=== PATIENT | female | born 1935 | race Caucasian/White ===

== ENCOUNTER 2017-07-19 07:29 | Inpatient (IN) | payer OTHER ==
[2017-06-29 14:22] VITALS: BMI 33.0
--- NOTE | 2017-06-29 15:01 | PAT Medication Instructions ---
Service Date Jun 29, 2017. Current Home Medication List Amlodipine (Norvasc), 5 MG PO QAM Ascorbic Acid (Vitamin C), 500 MG PO QAM Aspirin (Aspirin Ec), 81 MG PO QAM Clopidogrel (Plavix), 75 MG PO QAM Cyanocobalamin (Vitamin B12 500MCG), 500 MCG PO QAM Ergocalciferol (Vitamin D 44954 Unit), 50,000 UNIT PO WK Furosemide (Lasix), 40 MG PO QAM Levothyroxine Sodium (Synthroid), 75 MCG PO QAM Multivitamin (Multivitamin), 1 TAB PO QAM Oxycodone/Acetaminophen 5MG/325MG (Percocet 5MG/325MG), 1 TABLET PO Q6H PRN for Pain Potassium Chloride (Micro-K Ext Rel), 10 MEQ PO QAM Pravastatin (Pravachol ), 40 MG PO QPM [Hydrocortisone], 15 MG PO QPM [Hydrocortisone], 20 MG PO QAM Medication Instructions For Your Scheduled Surgery -Contact your prescriber for instructions for: Clopidogrel (Plavix), 75 MG PO QAM --MUST BE OFF PLAVIX FOR 7 DAYS FOR SPINAL ANESTHESIA [Hydrocortisone], 15 MG PO QPM [Hydrocortisone], 20 MG PO QAM -Continue as directed: Ergocalciferol (Vitamin D 87197 Unit), 50,000 UNIT PO WK - Hold the following medications the morning of surgery: Ascorbic Acid (Vitamin C), 500 MG PO QAM Cyanocobalamin (Vitamin B12 500MCG), 500 MCG PO QAM Multivitamin (Multivitamin), 1 TAB PO QAM Potassium Chloride (Micro-K Ext Rel), 10 MEQ PO QAM Furosemide (Lasix), 40 MG PO QAM - Take the following medications the morning of surgery with a sip of water: Amlodipine (Norvasc), 5 MG PO QAM Aspirin (Aspirin Ec), 81 MG PO QAM Levothyroxine Sodium (Synthroid), 75 MCG PO QAM Oxycodone/Acetaminophen 5MG/325MG (Percocet 5MG/325MG), 1 TABLET PO Q6H PRN for Pain (if needed, can be taken up to four hours before surgery) - Take the following medications as scheduled the night before surgery: Oxycodone/Acetaminophen 5MG/325MG (Percocet 5MG/325MG), 1 TABLET PO Q6H PRN for Pain (if needed) Pravastatin (Pravachol ), 40 MG PO QPM If you have any questions please call us at [phone] or [phone] or [phone]
--- NOTE | 2017-06-29 16:15 | DIAGNOSTIC IMAGING REPORT ---
TWO VIEW CHEST CLINICAL HISTORY: Preoperative examination. FINDINGS: PA and lateral chest radiographs are obtained. No prior studies are available for comparison at the time of dictation. The PA view is degraded by patient rotation. The heart is top normal for projection and there is atherosclerotic calcification of the thoracic aorta. Nonspecific interstitial thickening is likely chronic. Bibasilar atelectasis is observed. No airspace consolidation or pleural effusion is identified. There is no pneumothorax. The skeletal structures are osteopenic. Degenerative change and hyperkyphosis are noted in the thoracic spine. There are healed left-sided rib fractures. Advanced arthritic change is seen in the shoulders. IMPRESSION: No active disease in the chest. Electronically signed by: Adam Diaz M.D. 06/29/2017 4:14 PM Dictated Date/Time: 06/29/2017 4:13 PM
[2017-06-29 16:19] LABS: HEMATOCRIT 37.5 % (37-47); HEMOGLOBIN 12.2 g/dL (12.0-16.0); MEAN CELL VOLUME 103.6 fL (80-100); MEAN CORPUSCULAR HEMOGLOBIN 33.7 pg (25-34); MEAN CORPUSCULAR HGB CONC 32.5 g/dl (32-36); MEAN PLATELET VOLUME 10.5 fL (7.4-10.4); NUCLEATED RED BLOOD CELL ABS 0.07 K/uL (0-0); PLATELET COUNT 268 K/uL (130-400); RED CELL DISTRIBUTION WIDTH CV 17.1 % (11.5-14.5); RED CELL DISTRIBUTION WIDTH SD 65.1 fL (36.4-46.3); WHITE BLOOD COUNT 10.86 K/uL (4.8-10.8)
[2017-06-29 16:27] LABS: PTT PATIENT 23.6 SECONDS (21.0-31.0)
[2017-06-29 16:44] LABS: ALBUMIN 3.6 gm/dl (3.4-5.0); CALCIUM 9.4 mg/dl (8.5-10.1); CREATININE 1.33 mg/dl (0.60-1.20)
[2017-06-29 16:46] LABS: TOTAL PROTEIN 7.3 gm/dl (6.4-8.2)
[2017-06-30 07:33] LABS: HEMOGLOBIN A1C 5.2 % (4.5-5.6)
--- NOTE | 2017-07-11 22:21 | History and Physical ---
History & Physical Date Jul 11, 2017. Chief Complaint Right hip DJD History of Present Illness The patient is a 82 year old female with complaints of long standing history of right hip pain, djd and osteonecrosis. The patient rates her pain a 10/10. She has pain with her daily activities. She has limited standing and walking tolerance. Pain is worse with weightbearing. She has failed conservative treatments including physical therapy and anti-inflammatories and is scheduled for right total hip arthroplasty. Past Medical/Surgical History Hypertension Hyperlipidemia Hypothyroidism Hysterectomy Pituitectomy Additional History Hepatic Disease: No Endocrine Disorder: Yes Kidney Disease: No Hypertension: Yes Heart Disease: No Bleeding Tendencies: No Infectious Diseases: No Allergies Coded Allergies: Penicillins (Verified Allergy, Unknown, RASH, 06/29/17) Home Medications Scheduled Amlodipine (Norvasc), 5 MG PO QAM Ascorbic Acid (Vitamin C), 500 MG PO QAM Aspirin (Aspirin Ec), 81 MG PO QAM Clopidogrel (Plavix), 75 MG PO QAM Cyanocobalamin (Vitamin B12 500MCG), 500 MCG PO QAM Ergocalciferol (Vitamin D 33006 Unit), 50,000 UNIT PO WK Furosemide (Lasix), 40 MG PO QAM Levothyroxine Sodium (Synthroid), 75 MCG PO QAM Multivitamin (Multivitamin), 1 TAB PO QAM Potassium Chloride (Micro-K Ext Rel), 10 MEQ PO QAM Pravastatin (Pravachol ), 40 MG PO QPM [Hydrocortisone], 15 MG PO QPM [Hydrocortisone], 20 MG PO QAM Scheduled PRN Oxycodone/Acetaminophen 5MG/325MG (Percocet 5MG/325MG), 1 TABLET PO Q6H PRN for Pain Physical Examination Skin: warm/dry, no rash Eyes: normal inspection, EOMI, sclerae normal ENT: normal ENT inspection, pharynx normal Head: normocephalic, atraumatic Neck: supple, no adenopathy, trachea midline Respiratory/Chest: lungs clear, normal breath sounds, no respiratory distress Cardiovascular: regular rate, rhythm, no edema, no murmur Abdomen / GI: normal bowel sounds, non tender Back: normal inspection Extremities: + pertinent finding (RLE: NVSI, +painful ROM hip and log roll, + EHL/FHL/TA/GS SILT grossly) Diagnosis Right Hip DJD Plan of Treatment The patient will be admitted for a right total hip arthroplasty, posterior approach. We will plan on restarting her plavix as well as aspirin post- operatively for DVT prophylaxis. She is going to be home health versus inpatient rehab upon discharge. Her PCP is DR. Estrada in [place]. XR: AP and lateral Right hip demonstrates severe DJD, loss of the joint space, + cysts, +sclerosis, +osteophytes
[2017-07-19] VITALS (8 sets, daily range): BP systolic 96–156; BP diastolic 52–77; PULSE 60–74; TEMP 35.6–36.7; O2SAT 95–100; Ht 165.1 cm; Wt 91.4 kg
[~2017-07-19] VITALS: Ht 165.1 cm; Wt 91.4 kg
[~2017-07-19 07:29] MED LIST: ACETAMINOPHEN 500 MG TAB PO SCH; AMLO-110 PO; ASCO1CAP3 PO; ASPI81TA28 PO; ATROPINE SULFATE 0.1 MG/ML 5ML SYR IV PRN; BUPIVACAINE 0.5 % 5 MG/1 ML PF 10ML VIAL ONE; CLOP1TAB15 PO; CYAN500T13 PO; CeleBREX 200 MG CAP PO SCH; DEXAMETHASONE 4 MG TAB PO SCH; ERGO500037 PO; EpHEDrine SULFATE INJ 50 MG/ML AMP IV PRN; FAMOTIDINE 20 MG TAB PO SCH; FENTANYL CITRATE INJ 50 MCG/1 ML 2 ML VIAL ONE; FRS/40 PO; GABAPENTIN 300 MG CAP PO SCH; HYDROCORTISONE PO; HYDROmorphone INJ 2 MG/ML SYR/VIAL IV PRN; LACTATED RINGER'S 1000ML 1,000 ML IV SCH; LACTATED RINGER'S 1000ML 500 ML IV SCH; LEVO75TA PO; METOCLOPRAMIDE HCL 10 MG TAB PO SCH; MIDAZOLAM HCL 1 MG/ML 2ML VIAL ONE; MULT-506 PO; ONDANSETRON INJ 2 MG/ML 2 ML VIAL IV PRN; OXYC-57 PO; PHENYLEPHRINE 100MCG/ML 5ML SYR IV PRN; POTA10CA28 PO; PRAV20TA PO; ROPIVACAINE 5MG/ML 30 ML 150 MG, BUPIVACAINE 0.5% MPF INJ 30 ML, EpINEphrine HCL INJ 0.... INFIL SCH; VANCOMYCIN IV 1,250 MG in SODIUM CHLORIDE 0.9% 250ML 250 ML IV SCH
[2017-07-19] MEDS ORDERED: PROPOFOL IV EMULSION 10 MG/ML 20 ML VIAL IV ONE (07:45)
--- NOTE | 2017-07-19 08:17 | History & Physical Bridge Note ---
H&P Re-Evaluation Bridge Note: I have examined the patient, reviewed the History & Physical and in the interval since the performance of the History & Physical I have noted the following changes of clinical significance: No changes noted
[2017-07-19] MEDS ORDERED: POVIDONE-IODINE OP SOLN 30 ML BTL ONE (08:26)
[2017-07-19] MEDS ORDERED: ORTHO JOINT ANESTHETIC ONE (08:26)
[2017-07-19] MEDS ORDERED: BACITRACIN 50000 UNIT VIAL ONE (08:26)
[2017-07-19] MEDS: TRANEXAMIC ACID INJ 1,000 MG x 2 Bags IV SCH ×4 (10:22→13:59)
[2017-07-19] MEDS ORDERED: GLYCOPYRROLATE INJ 0.2 MG/ML VIAL ONE (11:04)
[2017-07-19] MEDS ORDERED: CLINDAMYCIN PHOS 150 MG/ML 2 ML VIAL ONE (11:19)
[2017-07-19] MEDS ORDERED: HYDROCORTISONE SOD SUCCINATE 100 MG/2 ML VIAL ONE (12:27)
--- NOTE | 2017-07-19 12:45 | [facility] Post Operative Brief Note ---
Immediate Operative Summary Operative Date Jul 19, 2017. Pre-Operative Diagnosis Right Hip Degenerative Joint Disease Post-Operative Diagnosis Right Hip Degenerative Joint Disease Procedure(s) Performed Right total hip arthroplasty-posterior Surgeon Dr. Marcus Rhoades Picu Nurse Surgeon(s) Adolfo Rhodes PA-C Estimated Blood Loss 225mL Findings Consistent with Post-Op Diagnosis Fluids (cc crystalloids) 1400 Specimens Permanent: A. Right femoral head Drains None Anesthesia Type MAC Spinal Regional Complication(s) none Disposition Disposition: Recovery Room / PACU
[2017-07-19] MEDS ORDERED: FENTANYL CITRATE INJ 50 MCG/1 ML 2 ML VIAL ONE (12:49)
[2017-07-19] MEDS ORDERED: MoRPHine SULFATE 4 MG/ML 1 ML CARP\\VIAL IV PRN (13:00)
[2017-07-19] MEDS ORDERED: ONDANSETRON INJ 2 MG/ML 2 ML VIAL IV PRN (13:00)
--- NOTE | 2017-07-19 13:09 | [facility] Operative Report ---
Operative Report Operative Date Jul 19, 2017. Pre-Operative Diagnosis Right Hip Degenerative Joint Disease Post-Operative Diagnosis Right Hip Degenerative Joint Disease Procedure(s) Performed Right total hip arthroplasty-posterior Surgeon Dr. Marcus Rhoades Zookeeper Surgeon(s) Adolfo Rhodes PA-C Estimated Blood Loss 225mL Findings See dictated op note Fluids 1400 Specimens Permanent: A. Right femoral head Drains None Anesthesia Type MAC Spinal Regional Complication(s) none Disposition Recovery Room / PACU Indications The patient is a 82-year-old female who presents with severe progressive right hip DJD, with femoral head collapse who has failed outpatient conservative treatments. I indicated the patient for a total hip replacement and the risks and benefits were explained in detail which included but not limited to infection, bleeding, blood clot, damage to surrounding bone, nerves, vessels, soft tissue, hip dislocation, failure of the prosthesis, leg length discrepancy , need for additional surgery and . The patient agreed to proceed with replacement of the hip and informed consent was obtained. Description of Procedure Following induction of adequate spinal anesthesia, the patient was transferred to the OR table and placed in lateral decubitus position with left hip down. The right hip was prepped and draped in the typical sterile fashion and a posterolateral/Wendy-Langenbeck incision was made. Subcutaneous tissue was sharply dissected. Electrocautery was utilized for hemostasis. The fascia was incised throughout the length of the wound and retracted with the Charnley retractor. The bursa was taken down and the short external rotators were identified. The piriformis was tagged with #1 Vicryl. The short external rotators and capsule were divided from the posterior aspect of the femur using electrocautery. The posterior capsule was tagged with #1 Vicryl. Both external rotators and posterior capsule were swept posterior and protected, along with protecting the sciatic nerve. The hip was dislocated by flexion and internally rotation in a controlled manner and exposure of the femoral neck was gained with an old-style Hohmann and a blunt cobra retractor. A femoral cutting guide was utilized for making the appropriate level femoral neck cut with reciprocating saw. The femoral head was removed, measured and reserved on the back table. Next, attention was turned to the acetabulum. A posterior and anterior offset retractor was placed to gain adequate exposure. Acetabular labrum as well as posterior capsule elements were removed using electrocautery and forceps. Fovea centralis was cleared of all soft tissue. Sequential reaming was performed starting at 44 mm and carried up to a 49 mm and decision was made to proceed with impaction of a 50 mm trabecular metal cup. This was impacted and held using a single 30 mm bone screw. The trial acetabular liner was placed at this time. Next, attention was turned to the proximal femur where a Bovie and pickup was used to further clear short external rotators from their insertion on the femur. Box osteotome and canal finder was used to gain access to the femoral canal and the lateral reamer on power was used to further open the proximal lateral canal. Sequentially rasping was carried up to a 13.5 which gave good fit and fill of the proximal femur. A trial reduction was carried out with a extended offset femoral neck component a 36/+0 mm femoral head. A trial reduction was performed and sequential head neck lengths were increased with trialing up to a +7. The trial reduction was stable in all degrees of rotation with no [id number] impingement. The hip was dislocated, trial components were removed and access to the acetabulum was re-established. The trial liner was removed and the cup was irrigated to ensure all debris was removed. The final acetabular liner was inserted and properly seated in the cup. Access to the femur was once more gained and the size 13.5 femoral stem with extended offset was impacted into position. The hip was once more assessed with the 36/+7 mm femoral head. Stability was accessed and found to be excellent with equal leg lengths. The hip was dislocated for the last time and the final 36/+7 ceramic femoral head was impacted in place and the hip was reduced. Range of motion was checked once again and found to be stable. The wound was copiously irrigated with sterile saline solution. The tiffany-incisional soft tissue was injected utilizing [facility] ortho mix which includes a combination of Ropivicaine 0.5% 150mg, Bupivicaine 0.5%/Epinephrine 1:200,000 30ml, Toradol 30mg, Dexamethasone 4mg, Ketamine 10mg, Clonidine 100mcg and NSS 30ml Orthomix solution. The piriformis, external rotators and capsule were repaired to the greater trochanter through bone tunnels using #5 FiberWire. The fascia was closed using #1 Vicryl, subcutaneous tissue was closed using 2-0 Vicryl, and skin was closed with 3-0 V-lock suture and Dermabond Prineo. Sterile dressings were applied which included ita, 4x4s and tegaderm adhesive dressing. The patient tolerated the procedure well and was transported to PACU in stable condition. Due to the complex nature of the procedure, the entire surgery was performed with the operational assistance of Adolfo Rhodes PA-C. The data assistant, under direct supervision, was involved in the actual performance of all aspects of the surgical procedure including hemostasis, tissue retraction and incision, instrument management, patient positioning, and wound closure. I attest to the content of the Intraoperative Record and any orders documented therein. Any exceptions are noted below. I attest to the content of the Intraoperative Record and any orders documented therein. Any exceptions are noted below.
[2017-07-19] MEDS ORDERED: HYDROmorphone INJ 0.5 MG/0.5 ML SYR ONE (13:26)
--- NOTE | 2017-07-19 13:33 | DIAGNOSTIC IMAGING REPORT ---
R PELVIS/UNILATERAL HIP 1 VIEW CLINICAL HISTORY: 82 years-old Female presenting with IN PACU - A/P PELVIS and LATERAL HIP INCLUDING ALL OF IMPLANT. TECHNIQUE: Single frontal view the pelvis and crosstable lateral view of the right hip were obtained. COMPARISON: None. FINDINGS: Postsurgical changes of total right hip arthroplasty. No malalignment. No periprosthetic fracture allowing for osteopenia. The bony pelvis is intact. Left hip joint intact. No advanced degenerative changes of the left hip. IMPRESSION: Expected postsurgical changes of total right hip arthroplasty allowing for osteopenia. Electronically signed by: Robert Peres M.D. 07/19/2017 1:31 PM Dictated Date/Time: 07/19/2017 1:30 PM
--- NOTE | 2017-07-19 13:50 | Anesthesiology Progress Note ---
Anesthesia Post Op Note Date & Time Jul 19, 2017 at 13:50 Vital Signs Pain Intensity: 6 Vital Signs Past 12 Hours Date Time Temp Pulse Resp B/P (MAP) Pulse Ox O2 Delivery O2 Flow Rate FiO2 07/19/17 13:38 70 14 07/19/17 13:38 82 14 97 07/19/17 13:36 117/60 07/19/17 13:33 68 15 07/19/17 13:33 68 15 97 07/19/17 13:32 71 13 07/19/17 13:32 71 13 97 07/19/17 13:31 129/64 07/19/17 13:27 72 16 97 07/19/17 13:27 72 16 07/19/17 13:26 131/69 07/19/17 13:22 91 16 98 07/19/17 13:22 77 16 07/19/17 13:21 132/70 07/19/17 13:17 80 14 07/19/17 13:17 80 14 94 07/19/17 13:16 120/67 07/19/17 13:13 110/61 07/19/17 13:12 36.2 77 11 110/61 95 Nasal Cannula 2 07/19/17 13:12 78 12 95 07/19/17 13:12 79 12 07/19/17 08:24 36.4 67 22 156/77 96 Room Air Notes Mental Status: alert / awake / arousable, participated in evaluation Pt Amnestic to Procedure: Yes Nausea / Vomiting: adequately controlled Pain: adequately controlled Airway Patency, RR, SpO2: stable & adequate BP & HR: stable & adequate Hydration State: stable & adequate Anesthetic Complications: no major complications apparent
[2017-07-19] MEDS: SODIUM CHLORIDE 0.9% 1000ML 1,000 ML IV SCH ×2 (15:39→22:18)
[2017-07-19] MEDS: CLINDAMYCIN IV 900 MG in DEXTROSE 5% 50ML 50 ML IV SCH ×2 (15:39→23:36)
[2017-07-19] MEDS: ACETAMINOPHEN 500 MG TAB PO SCH ×2 (15:41→22:17)
[2017-07-19] MEDS: KETOROLAC TROMETHAMINE 15 MG/ML VIAL IV. SCH ×2 (15:41→22:17)
--- NOTE | 2017-07-19 18:56 | Orthopedic Progress Note ---
Orthopedic Progress Note Date of Service Jul 19, 2017. Subjective Reports: feeling well, pain controlled w PO medications, Denies: complaints, chest pain, SOB, nausea / vomiting, light headedness, calf pain Additional Notes: Patient seen laying in bed with family at bedside, comfortable, pain well controlled, no acute issues. Objective NAD, AOx3 RLE NVSI +EHL/FHL/TA/GS SILT grossly, CR< 2 seconds, +2 DP pulse, compartments soft NT, dressing CDI Date Time Temp Pulse Resp B/P (MAP) Pulse Ox O2 Delivery O2 Flow Rate FiO2 07/19/17 17:53 36.7 07/19/17 17:10 35.6 60 17 103/52 (69) 100 Nasal Cannula 2.0 07/19/17 16:11 74 19 96/54 (68) 97 Nasal Cannula 2.0 07/19/17 15:30 Nasal Cannula 2.0 07/19/17 15:10 61 17 110/69 (83) 100 Nasal Cannula 2.0 07/19/17 14:45 65 12 122/72 (89) 100 Nasal Cannula 2.0 07/19/17 14:10 Nasal Cannula 07/19/17 14:10 Nasal Cannula 07/19/17 13:58 36.4 96 Nasal Cannula 2 07/19/17 13:56 104/49 07/19/17 13:54 66 16 96 07/19/17 13:54 65 16 07/19/17 13:51 122/56 07/19/17 13:49 67 16 96 07/19/17 13:49 68 16 07/19/17 13:46 132/59 07/19/17 13:44 72 16 96 07/19/17 13:44 71 16 07/19/17 13:42 122/58 07/19/17 13:39 70 14 07/19/17 13:39 72 14 98 07/19/17 13:38 70 14 07/19/17 13:38 82 14 97 07/19/17 13:36 117/60 07/19/17 13:33 68 15 07/19/17 13:33 68 15 97 07/19/17 13:32 71 13 07/19/17 13:32 71 13 97 07/19/17 13:31 129/64 07/19/17 13:27 72 16 97 07/19/17 13:27 72 16 07/19/17 13:26 131/69 07/19/17 13:22 91 16 98 07/19/17 13:22 77 16 07/19/17 13:21 132/70 07/19/17 13:17 80 14 07/19/17 13:17 80 14 94 07/19/17 13:16 120/67 07/19/17 13:13 110/61 07/19/17 13:12 36.2 77 11 110/61 95 Nasal Cannula 2 07/19/17 13:12 78 12 95 07/19/17 13:12 79 12 07/19/17 08:24 36.4 67 22 156/77 96 Room Air Assessment & Plan Assessment: s/p R PALMIRA Plan: -Clinda x 24 -DVT ppx - EC ASA BID -WBAT RLE -PT/OT -Posterior hip precautions -PO XR: Well aligned, well fixed PALMIRA, without evidence of fracture/dislocation -am labs -DC planning
[2017-07-19] MEDS: OXYCODONE HCL IR 5 MG TAB (IMMEDIATE RELEASE) PO PRN (19:36)
--- NOTE | 2017-07-19 21:16 | Medical Consult ---
Consultation Date of Consultation: Jul 19, 2017. Attending Physician: Marcus Rhoades D.O. Reason for Consultation: post op medical management History of Present Illness Ms. Harrison is post op right PALMIRA 07/19. She is up and moving around the room with help of walker and CNAs. She does say she is painful at the surgical site. She is passing gas, no bowel movement. Pmhx: Bethel's disease, htn, cholesterol, chronic lower leg edema, hypothyroidism. ROS Constitutional: no chills, aches, sweats or fever Respiratory: no sob,cough, sputum, or wheezing Cardiac: no chest pain, palpitations, edema, orthopnea or lightheadedness GI: no abdominal pain, nausea, vomiting, diarrhea or constipation : no dysuria or hesitancy Extremities: see HPI Skin: no rash All other systems reviewed and negative Family History non contributory Social History Smoking Status: Never Smoker Smokeless Tobacco Use: No Alcohol Use: none Drug Use: none Marital Status: Housing Status: lives with family Occupation Status: retired Allergies Coded Allergies: Penicillins (Verified Allergy, Unknown, RASH, 06/29/17) Home Medications Active Reported Percocet 5MG/325MG (Oxycodone/Acetaminophen) Tab 1 Tablet PO Q6H PRN PAIN Aspirin Ec (Aspirin) 81 Mg Tab 81 Mg PO QAM Plavix (Clopidogrel Bisulfate) 75 Mg Tab 75 Mg PO QAM Lasix (Furosemide) 40 Mg Tab 40 Mg PO QAM Vitamin B12 500MCG (Cyanocobalamin) 500 Mcg Tab 500 Mcg PO QAM Synthroid (Levothyroxine Sodium) 75 Mcg Tab 75 Mcg PO QAM [Hydrocortisone] 20 Mg PO QAM [Hydrocortisone] 15 Mg PO QPM Multivitamin (Multivitamins) Tab 1 Tab PO QAM Micro-K Ext Rel (Potassium Chloride) 10 Meq Capcr 10 Meq PO QAM Vitamin D 85938 Unit (Ergocalciferol) 50,000 Unit Cap 50,000 Unit PO WK TUESDAY Pravachol (Pravastatin Sodium) 20 Mg Tab 40 Mg PO QPM Norvasc (Amlodipine Besylate) 5 Mg Tab 5 Mg PO QAM Current Inpatient Medications Current Inpatient Medications Medications (Trade) Dose Ordered Sig/Stefani Route Start Time Stop Time Status Last Admin Dose Admin Amlodipine Besylate (Norvasc Tab) 5 mg QAM PO 07/20/17 09:00 08/19/17 08:59 Clopidogrel Bisulfate (plAVix TAB) 75 mg QAM PO 07/20/17 09:00 08/19/17 08:59 Furosemide (Lasix Tab) 40 mg QAM PO 07/20/17 09:00 08/19/17 08:59 Levothyroxine Sodium (Synthroid Tab) 75 mcg DAILYBB PO 07/20/17 06:00 08/19/17 05:59 Multivitamins (Multivitamin Tab) 1 tab QAM PO 07/20/17 09:00 08/19/17 08:59 Potassium Chloride (Klor-Con M10) 10 meq QAM PO 07/20/17 09:00 08/19/17 08:59 Pravastatin Sodium (Pravachol Tab) 40 mg QPM PO 07/19/17 21:00 08/18/17 20:59 Sodium Chloride 1,000 ml @ 100 mls/hr Q10H IV 07/19/17 12:51 07/20/17 12:50 07/19/17 15:39 100 MLS/HR Clindamycin Phosphate 900 mg/ Dextrose 56 ml @ 100 mls/hr Q8H IV 07/19/17 16:00 07/20/17 00:34 07/19/17 15:39 100 MLS/HR Ketorolac Tromethamine (Toradol Inj) 15 mg Q6H IV. 07/19/17 16:00 07/20/17 12:59 07/19/17 15:41 15 MG Celecoxib (CeleBREX CAP) 200 mg BID PO 07/20/17 21:00 08/19/17 20:59 Oxycodone HCl (Roxicodone Immediate Rel Tab) 1 TABLET FOR PAIN RATING... Q4H PRN PO 07/19/17 13:00 08/02/17 12:59 Morphine Sulfate (MoRPHine SULFATE INJ) 4 mg Q4H PRN IV 07/19/17 13:00 08/02/17 12:59 Acetaminophen (Tylenol Tab) 1,000 mg Q8H PO 07/19/17 14:00 08/18/17 12:59 07/19/17 15:41 1,000 MG Senna (Senokot Tab) 17.2 mg HS PO 07/19/17 21:00 08/18/17 20:59 Docusate Sodium (coLACE CAP) 100 mg BID PO 07/19/17 21:00 08/18/17 20:59 Diphenhydramine HCl (Benadryl Cap) 25 mg Q8H PRN PO 07/19/17 13:00 08/18/17 12:59 Ondansetron HCl (Zofran Inj) 4 mg Q6H PRN IV 07/19/17 13:00 08/18/17 12:59 Pantoprazole Sodium (Protonix Tab) 40 mg QAM PO 07/20/17 09:00 07/23/17 09:01 Aspirin (Ecotrin Tab) 325 mg BID PO 07/19/17 21:00 08/18/17 20:59 Hydrocortisone (Cortef Tab) 60 mg QAM PO 07/20/17 09:00 08/19/17 08:59 Hydrocortisone (Cortef Tab) 45 mg QPM PO 07/19/17 21:00 08/18/17 20:59 Physical Exam Date Time Temp Pulse Resp B/P (MAP) Pulse Ox O2 Delivery O2 Flow Rate FiO2 07/19/17 17:53 36.7 07/19/17 17:10 35.6 60 17 103/52 (69) 100 Nasal Cannula 2.0 07/19/17 16:11 74 19 96/54 (68) 97 Nasal Cannula 2.0 07/19/17 15:30 Nasal Cannula 2.0 07/19/17 15:10 61 17 110/69 (83) 100 Nasal Cannula 2.0 07/19/17 14:45 65 12 122/72 (89) 100 Nasal Cannula 2.0 07/19/17 14:10 Nasal Cannula 07/19/17 14:10 Nasal Cannula 07/19/17 13:58 36.4 96 Nasal Cannula 2 07/19/17 13:56 104/49 07/19/17 13:54 66 16 96 07/19/17 13:54 65 16 07/19/17 13:51 122/56 07/19/17 13:49 67 16 96 07/19/17 13:49 68 16 07/19/17 13:46 132/59 07/19/17 13:44 72 16 96 07/19/17 13:44 71 16 07/19/17 13:42 122/58 07/19/17 13:39 70 14 07/19/17 13:39 72 14 98 07/19/17 13:38 70 14 07/19/17 13:38 82 14 97 07/19/17 13:36 117/60 07/19/17 13:33 68 15 07/19/17 13:33 68 15 97 07/19/17 13:32 71 13 07/19/17 13:32 71 13 97 07/19/17 13:31 129/64 07/19/17 13:27 72 16 97 07/19/17 13:27 72 16 07/19/17 13:26 131/69 07/19/17 13:22 91 16 98 07/19/17 13:22 77 16 07/19/17 13:21 132/70 07/19/17 13:17 80 14 07/19/17 13:17 80 14 94 07/19/17 13:16 120/67 07/19/17 13:13 110/61 07/19/17 13:12 36.2 77 11 110/61 95 Nasal Cannula 2 07/19/17 13:12 78 12 95 07/19/17 13:12 79 12 07/19/17 08:24 36.4 67 22 156/77 96 Room Air General: no distress Eyes: normal inspection, PERLL Respiratory: chest non tender, clear to auscultation, normal breath sounds, no respiratory distress, no accessory muscle use Cardiac: regular rate and rhythm, no rub or gallop, no murmur, no edema, no jvd GI/: active bowel sounds, no abd pain or tenderness, soft, non distended Extremities: normal range of motion, normal strength, tender right hip at incision site Neuro/Psych: alert and oriented x 3, normal mood and affect Skin: normal color, dry Assessment & Plan Ms. 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 Assessment and Plan: Seen postop right total hip arthroplasty is medically stable. 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 CAD/hypertension-- Continue with usual regimen of aspirin, metoprolol, Plavix and furosemide. Maintain hemoglobin greater than or equal to 10. Klebsiella pneumonia UTI noted on June 29 laboratories-- Repeat UA and urine culture and sensitivity to verify clearance. Hypothyroidism-- Continue usual home dose of levothyroxine.
[2017-07-19] MEDS: DOCUSATE SODIUM 100 MG CAP PO SCH (21:22)
[2017-07-19] MEDS: ASPIRIN 325 MG ECTAB PO SCH (21:23)
[2017-07-19] MEDS: PRAVASTATIN SOD 40 MG TAB PO SCH (21:23)
[2017-07-19] MEDS: HYDROCORTISONE 10 MG TAB PO SCH (21:23)
[2017-07-19] MEDS: SENNA 8.6 MG TAB PO SCH (21:24)
[2017-07-20] VITALS (7 sets, daily range): BP systolic 104–133; BP diastolic 58–74; PULSE 55–73; TEMP 36.4–36.5; O2SAT 95–98
[2017-07-20] MEDS: KETOROLAC TROMETHAMINE 15 MG/ML VIAL IV. SCH ×2 (03:35→10:07)
[2017-07-20] MEDS: LEVOTHYROXINE 75 MCG TAB PO SCH (06:02)
[2017-07-20] MEDS: ACETAMINOPHEN 500 MG TAB PO SCH ×3 (06:02→22:26)
[2017-07-20 06:35] LABS: HEMATOCRIT 30.1 % (37-47); HEMOGLOBIN 9.9 g/dL (12.0-16.0); MEAN CELL VOLUME 101.3 fL (80-100); MEAN CORPUSCULAR HEMOGLOBIN 33.3 pg (25-34); MEAN CORPUSCULAR HGB CONC 32.9 g/dl (32-36); MEAN PLATELET VOLUME 10.4 fL (7.4-10.4); NUCLEATED RED BLOOD CELL ABS 0.06 K/uL (0-0); PLATELET COUNT 221 K/uL (130-400); RED CELL DISTRIBUTION WIDTH CV 15.6 % (11.5-14.5); RED CELL DISTRIBUTION WIDTH SD 56.6 fL (36.4-46.3); WHITE BLOOD COUNT 22.81 K/uL (4.8-10.8)
[2017-07-20 07:10] LABS: CREATININE 1.23 mg/dl (0.60-1.20)
[2017-07-20 07:11] LABS: CALCIUM 8.4 mg/dl (8.5-10.1); POTASSIUM 4.5 mmol/L (3.5-5.1)
[2017-07-20 07:22] LABS: BASO ABS # 0.01 K/uL (0-0.2); IG# 0.31 K/uL (0.00-0.02); LYMPH % 5.4 %; LYMPH ABS # 1.24 K/uL (1.2-3.4); MONO % 5.1 %; MONO ABS # 1.16 K/uL (0.11-0.59); NEUT % 88.1 %; NEUT ABS # 20.09 K/uL (1.4-6.5)
--- NOTE | 2017-07-20 08:15 | Orthopedic Progress Note ---
Orthopedic Progress Note Date of Service Jul 20, 2017. Subjective Post OP Day: 1 Reports: feeling well, Denies: chest pain, SOB, nausea / vomiting, light headedness, calf pain Objective calves soft nontender, N/V intact, hip located, capillary refill less than 2 sec., dressing C/D/I, A&O x3, toes mobile Date Time Temp Pulse Resp B/P (MAP) Pulse Ox O2 Delivery O2 Flow Rate FiO2 07/20/17 07:52 36.5 64 14 110/66 (81) 95 Room Air 07/20/17 03:30 36.4 66 18 116/71 (86) 95 Room Air 07/19/17 23:40 Room Air 07/19/17 23:00 36.4 63 18 116/67 (83) 96 Room Air 07/19/17 19:40 36.5 61 17 115/69 (84) 95 Room Air 07/19/17 17:53 36.7 07/19/17 17:10 35.6 60 17 103/52 (69) 100 Nasal Cannula 2.0 07/19/17 16:11 74 19 96/54 (68) 97 Nasal Cannula 2.0 07/19/17 15:30 Nasal Cannula 2.0 07/19/17 15:10 61 17 110/69 (83) 100 Nasal Cannula 2.0 07/19/17 14:45 65 12 122/72 (89) 100 Nasal Cannula 2.0 07/19/17 14:10 Nasal Cannula 07/19/17 14:10 Nasal Cannula 07/19/17 13:58 36.4 96 Nasal Cannula 2 07/19/17 13:56 104/49 07/19/17 13:54 66 16 96 07/19/17 13:54 65 16 07/19/17 13:51 122/56 07/19/17 13:49 67 16 96 07/19/17 13:49 68 16 07/19/17 13:46 132/59 07/19/17 13:44 72 16 96 07/19/17 13:44 71 16 07/19/17 13:42 122/58 07/19/17 13:39 70 14 07/19/17 13:39 72 14 98 07/19/17 13:38 70 14 07/19/17 13:38 82 14 97 07/19/17 13:36 117/60 07/19/17 13:33 68 15 07/19/17 13:33 68 15 97 07/19/17 13:32 71 13 07/19/17 13:32 71 13 97 07/19/17 13:31 129/64 07/19/17 13:27 72 16 97 07/19/17 13:27 72 16 07/19/17 13:26 131/69 07/19/17 13:22 91 16 98 07/19/17 13:22 77 16 07/19/17 13:21 132/70 07/19/17 13:17 80 14 07/19/17 13:17 80 14 94 07/19/17 13:16 120/67 07/19/17 13:13 110/61 07/19/17 13:12 36.2 77 11 110/61 95 Nasal Cannula 2 07/19/17 13:12 78 12 95 07/19/17 13:12 79 12 07/19/17 08:24 36.4 67 22 156/77 96 Room Air Laboratory Results 24 Hours: Test 07/20/17 06:09 White Blood Count 22.81 K/uL Red Blood Count 2.97 M/uL Hemoglobin 9.9 g/dL Hematocrit 30.1 % Mean Corpuscular Volume 101.3 fL Mean Corpuscular Hemoglobin 33.3 pg Mean Corpuscular Hemoglobin Concent 32.9 g/dl Platelet Count 221 K/uL Mean Platelet Volume 10.4 fL Neutrophils (%) (Auto) 88.1 % Lymphocytes (%) (Auto) 5.4 % Monocytes (%) (Auto) 5.1 % Eosinophils (%) (Auto) 0.0 % Basophils (%) (Auto) 0.0 % Neutrophils # (Auto) 20.09 K/uL Lymphocytes # (Auto) 1.24 K/uL Monocytes # (Auto) 1.16 K/uL Eosinophils # (Auto) 0.00 K/uL Basophils # (Auto) 0.01 K/uL Prothromb Time International Ratio 1.0 Prothrombin Time 10.4 SECONDS Assessment & Plan Assessment: POD#1 s/p R PALMIRA Plan: -Clinda x 24 -DVT ppx - PLAVIX + EC ASA BID -WBAT RLE -PT/OT -Posterior hip precautions -PO XR: Well aligned, well fixed PALMIRA, without evidence of fracture/dislocation -am labs -DC planning- HH VS INPT REHAB. WILL SEE HOW SHE PROGRESSES IN PT TODAY. PLAN ON DC TOMORROW.
[2017-07-20] MEDS ORDERED: MULTIVITAMIN TAB PO SCH (09:00)
[2017-07-20] MEDS ORDERED: HYDROCORTISONE 10 MG TAB PO SCH (09:00)
[2017-07-20] MEDS: DOCUSATE SODIUM 100 MG CAP PO SCH ×2 (09:06→20:42)
[2017-07-20] MEDS: ASPIRIN 325 MG ECTAB PO SCH ×2 (09:08→20:42)
[2017-07-20] MEDS: FUROSEMIDE 40 MG TAB PO SCH (09:09)
[2017-07-20] MEDS: POTASSIUM CHLORIDE 10 MEQ TABCR PO SCH (09:09)
[2017-07-20] MEDS: MULTIVITAMIN TAB PO SCH (09:09)
[2017-07-20] MEDS: CLOPIDOGREL BISULFATE 75 MG TAB PO SCH (09:11)
[2017-07-20] MEDS: PANTOprazole SOD 40 MG TAB PO SCH (09:11)
[2017-07-20] MEDS: AMLODIPINE BESYLATE 5 MG TAB PO SCH (09:13)
[2017-07-20] MEDS: SODIUM CHLORIDE 0.9% 1000ML 1,000 ML IV SCH (09:17)
--- NOTE | 2017-07-20 10:50 | Anesthesiology Progress Note ---
Anesthesia Post Op Note Date & Time Jul 20, 2017 at 10:49 Vital Signs Vital Signs Past 12 Hours Date Time Temp Pulse Resp B/P (MAP) Pulse Ox O2 Delivery O2 Flow Rate FiO2 07/20/17 09:12 73 107/61 (76) 07/20/17 07:52 36.5 64 14 110/66 (81) 95 Room Air 07/20/17 07:40 95 Room Air 07/20/17 03:30 36.4 66 18 116/71 (86) 95 Room Air 07/19/17 23:40 Room Air 07/19/17 23:00 36.4 63 18 116/67 (83) 96 Room Air Notes Mental Status: alert / awake / arousable, participated in evaluation Pt Amnestic to Procedure: Yes Nausea / Vomiting: adequately controlled Pain: adequately controlled Airway Patency, RR, SpO2: stable & adequate BP & HR: stable & adequate Hydration State: stable & adequate Neuraxial Anesthesia: was administered, sensory block resolved Anesthetic Complications: no major complications apparent
[2017-07-20] MEDS: OXYCODONE HCL IR 5 MG TAB (IMMEDIATE RELEASE) PO PRN (11:43)
[2017-07-20] MEDS ORDERED: NITROFURANTOIN MONOHYDRATE 100 MG CAP PO STA (13:57)
--- NOTE | 2017-07-20 17:36 | Progress Note ---
Subjective Date of Service: Jul 20, 2017. 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 Review of Systems Constitutional: No fever, No chills Respiratory: No cough, No shortness of breath, No dyspnea on exertion Cardiac: No chest pain Abdomen: No pain Objective Vital Signs Date Time Temp Pulse Resp B/P (MAP) Pulse Ox O2 Delivery O2 Flow Rate FiO2 07/20/17 16:00 Room Air 07/20/17 15:29 36.5 55 17 104/58 (73) 96 Room Air 07/20/17 10:58 36.5 68 14 114/62 (79) 98 Room Air 07/20/17 09:12 73 107/61 (76) 07/20/17 08:00 Room Air 07/20/17 07:52 36.5 64 14 110/66 (81) 95 Room Air 07/20/17 07:40 95 Room Air 07/20/17 03:30 36.4 66 18 116/71 (86) 95 Room Air 07/19/17 23:40 Room Air 07/19/17 23:00 36.4 63 18 116/67 (83) 96 Room Air 07/19/17 19:40 36.5 61 17 115/69 (84) 95 Room Air 07/19/17 17:53 36.7 Physical Exam General Appearance: no apparent distress ENT: pharynx normal Neck: no JVD Respiratory/Chest: lungs clear, no respiratory distress, no accessory muscle use Cardiovascular: regular rate, rhythm, no gallop, no JVD, no murmur Abdomen: normal bowel sounds, non tender, soft, no organomegaly Extremities: no pedal edema, + swelling (right thigh only) Neurologic/Psychiatric: alert, oriented x 3 Skin: + pertinent finding (dressings intact, right hip) Laboratory Results Last 24 Hours Test 07/19/17 22:10 07/20/17 06:09 Urine Color YELLOW Urine Appearance CLOUDY Urine pH 6.5 Urine Specific Henderson 1.019 Urine Protein NEG Urine Glucose (UA) NEG Urine Ketones NEG Urine Occult Blood 1+ Urine Nitrite POS Urine Bilirubin NEG Urine Urobilinogen NEG Urine Leukocyte Esterase LARGE Urine WBC (Auto) >30 /hpf Urine RBC (Auto) 0-4 /hpf Urine Hyaline Casts (Auto) 1-5 /lpf Urine Epithelial Cells (Auto) 0-5 /lpf Urine Bacteria (Auto) 3+ White Blood Count 22.81 K/uL Red Blood Count 2.97 M/uL Hemoglobin 9.9 g/dL Hematocrit 30.1 % Mean Corpuscular Volume 101.3 fL Mean Corpuscular Hemoglobin 33.3 pg Mean Corpuscular Hemoglobin Concent 32.9 g/dl Platelet Count 221 K/uL Mean Platelet Volume 10.4 fL Neutrophils (%) (Auto) 88.1 % Lymphocytes (%) (Auto) 5.4 % Monocytes (%) (Auto) 5.1 % Eosinophils (%) (Auto) 0.0 % Basophils (%) (Auto) 0.0 % Neutrophils # (Auto) 20.09 K/uL Lymphocytes # (Auto) 1.24 K/uL Monocytes # (Auto) 1.16 K/uL Eosinophils # (Auto) 0.00 K/uL Basophils # (Auto) 0.01 K/uL RDW Standard Deviation 56.6 fL RDW Coefficient of Variation 15.6 % Immature Granulocyte % (Auto) 1.4 % Immature Granulocyte # (Auto) 0.31 K/uL Nucleated RBC Absolute Count (auto) 0.06 K/uL Nucleated Red Blood Cells % 0.3 % Toxic Granulation 1+ Large Platelets 1+ Basophilic Stippling 1+ Prothrombin Time 10.4 SECONDS Prothromb Time International Ratio 1.0 Sodium Level 137 mmol/L Potassium Level 4.5 mmol/L Chloride Level 105 mmol/L Carbon Dioxide Level 24 mmol/L Anion Gap 8.0 mmol/L Blood Urea Nitrogen 24 mg/dl Creatinine 1.23 mg/dl Est Creatinine Clear Calc Drug Dose 38.7 ml/min Estimated GFR () 47.0 Estimated GFR (Non- 40.5 BUN/Creatinine Ratio 19.5 Random Glucose 126 mg/dl Calcium Level 8.4 mg/dl Assessment and Plan 82yo female - 1. POD #1 s/p right THR - asa BID for DVT proph; pain management & disposition - defer to ortho team. 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 In light of blood loss would continue stress dose steroids another 1-2 days and continue her IVF. Will hold her HCTZ for now. 3. HTN - ok to continue POONAM but hold HCTZ portion of her BP med. 4. GNR UTI - had pansensitive klebsiella a few weeks ago; start macrobid BID while awaiting culture. 5. CKD stage 3 - creatinine stable. 6. macrocytosis - check TSH, b12, folate in am. 7. acute blood loss anemia - start ferrous sulfate 325mg BID. CBC am. 8. hypothyroidism - cont synthroid, check TSH am. 9. chronic LE edema - stable today. 10. leukocytosis - likely due to stress dose steroids; doubt the UTI; simply repeat CBC in am and follow vitals. Continued [facility] stay due to: ambulation difficulties, multiple IV medications needed Discharge planning: rehab hospital (vs SNF for rehab)
[2017-07-20] MEDS: CeleBREX 200 MG CAP PO SCH (20:41)
[2017-07-20] MEDS: NITROFURANTOIN MONOHYDRATE 100 MG CAP PO SCH (20:41)
[2017-07-20] MEDS: HYDROCORTISONE 10 MG TAB PO SCH (20:42)
[2017-07-20] MEDS: FERROUS SULFATE 325 MG TAB PO SCH (20:42)
[2017-07-20] MEDS: SENNA 8.6 MG TAB PO SCH (22:26)
[2017-07-20] MEDS: PRAVASTATIN SOD 40 MG TAB PO SCH (22:26)
[2017-07-21] MEDS: LEVOTHYROXINE 75 MCG TAB PO SCH (05:39)
[2017-07-21] MEDS: ACETAMINOPHEN 500 MG TAB PO SCH ×3 (05:39→21:46)
[2017-07-21 06:00] LABS: HEMATOCRIT 24.8 % (37-47); HEMOGLOBIN 8.2 g/dL (12.0-16.0); MEAN CORPUSCULAR HEMOGLOBIN 33.1 pg (25-34); MEAN CORPUSCULAR HGB CONC 33.1 g/dl (32-36); NUCLEATED RED BLOOD CELL ABS 0.06 K/uL (0-0); PLATELET COUNT 184 K/uL (130-400); RED CELL DISTRIBUTION WIDTH CV 15.9 % (11.5-14.5); RED CELL DISTRIBUTION WIDTH SD 57.8 fL (36.4-46.3); WHITE BLOOD COUNT 15.83 K/uL (4.8-10.8)
[2017-07-21 06:08] VITALS: BP 151/73; PULSE 70; TEMP 36.8; O2SAT 96
[2017-07-21 06:34] LABS: CALCIUM 8.2 mg/dl (8.5-10.1); CREATININE 1.18 mg/dl (0.60-1.20); POTASSIUM 3.9 mmol/L (3.5-5.1)
[2017-07-21] MEDS: MULTIVITAMIN TAB PO SCH (07:37)
[2017-07-21] MEDS: CLOPIDOGREL BISULFATE 75 MG TAB PO SCH (07:37)
[2017-07-21] MEDS: NITROFURANTOIN MONOHYDRATE 100 MG CAP PO SCH (07:37)
[2017-07-21] MEDS: FERROUS SULFATE 325 MG TAB PO SCH ×2 (07:37→20:42)
[2017-07-21] MEDS: AMLODIPINE BESYLATE 5 MG TAB PO SCH (07:37)
[2017-07-21] MEDS: PANTOprazole SOD 40 MG TAB PO SCH (07:37)
[2017-07-21] MEDS: FUROSEMIDE 40 MG TAB PO SCH (07:37)
[2017-07-21] MEDS: POTASSIUM CHLORIDE 10 MEQ TABCR PO SCH (07:38)
[2017-07-21] MEDS: OXYCODONE HCL IR 5 MG TAB (IMMEDIATE RELEASE) PO PRN ×2 (07:39→11:43)
--- NOTE | 2017-07-21 07:59 | Orthopedic Progress Note ---
Orthopedic Progress Note Date of Service Jul 21, 2017. Subjective Additional Notes: Patient seen laying in bed, comfortable, no acute issues overnight, pain well controlled, denies CP/SOB/N/V Objective NAD, AOx3 RLE NVSI +EHL/FHL/TA/GS SILT grossly, CR< 2 seconds, compartment soft NT, dressing cdi. Date Time Temp Pulse Resp B/P (MAP) Pulse Ox O2 Delivery O2 Flow Rate FiO2 07/21/17 06:08 36.8 70 16 151/73 (99) 96 Room Air 07/20/17 23:58 Room Air 07/20/17 23:54 36.5 63 20 133/74 (93) 96 Room Air 07/20/17 16:00 Room Air 07/20/17 15:29 36.5 55 17 104/58 (73) 96 Room Air 07/20/17 10:58 36.5 68 14 114/62 (79) 98 Room Air 07/20/17 09:12 73 107/61 (76) 07/20/17 08:00 Room Air Laboratory Results 24 Hours: Test 07/21/17 05:36 Hematocrit 24.8 % Hemoglobin 8.2 g/dL Assessment & Plan Assessment: POD#2 s/p R PALMIRA Plan: -Clinda x 24 -DVT ppx - PLAVIX + EC ASA BID -WBAT RLE -PT/OT -Posterior hip precautions -PO XR: Well aligned, well fixed PALMIRA, without evidence of fracture/dislocation -am labs -Med recs appreciated, for steroid dosage, may return to normal home dose -DC planning- DC rehab when bed available, [facility].
[2017-07-21] MEDS ORDERED: ACET-24 PO (08:27)
[2017-07-21] MEDS ORDERED: SENN-61 PO (08:27)
[2017-07-21] MEDS ORDERED: CLB200 PO (08:27)
[2017-07-21] MEDS ORDERED: ASPEC325 PO (08:27)
[2017-07-21] MEDS ORDERED: RXC5 PO (08:27)
[2017-07-21] MEDS ORDERED: ONDA-170 PO (08:27)
--- NOTE | 2017-07-21 08:29 | Discharge Instructions ---
Discharge Instructions Date of Service Jul 21, 2017. Admission Reason for Admission: Right Hip Osteoarthritis, Avascular Necrosis Discharge Discharge Diagnosis / Problem: sp right sheila Discharge Goals Goal(s): Decrease discomfort, Improve function, Increase independence Activity Recommendations Activity Level: Assistance Required Therapies: Physical Therapy, Occupational Therapy Weightbearing Status: Right weightbearing (as tolerated) . Additional Information Patient informed of condition: Yes Advance Directives: Yes DNR: No Level of Care: Acute Rehab Communicable Disease: No Prognosis: Stable Powers Catheter: No Instructions / Follow-Up Instructions / Follow-Up ACTIVITY RECOMMENDATIONS: SELF CARE INSTRUCTIONS AFTER TOTAL HIP REPLACEMENT Until the incision and soft tissues around your hip have healed, there is a possibility that the hip prosthesis could dislocate. A. Observe the following precautions to prevent dislocation: 1. Don't bend your hip greater than 90 degrees. 2. Avoid crossing your legs or ankles while standing or lying. 3. Sit with your feet placed 6 inches apart. 4. When sitting, keep your knees below your hips. Sit on a firm surface, avoid deep, soft chairs and couches. Use an elevated toilet seat in the bathroom. 5. Don't bend over at the waist. Use a long handled shoehorn and a sock aid to help you put on your shoes and socks. A filling carrier can help you scrap picker objects that are too high or too low to reach. 6. Keep car riding to a minimum for at least one month after surgery. B. Your balance may be shaky for a while. Use crutches or a walker until directed by your doctor. C. Use hand rails when walking on stairs. D. Wear low heeled shoes with non-slip soles. E. Be sure that your floors are free of things that could trip you - throw rugs , electrical cords, small objects. Avoid wet and waxed floors, especially with crutches and canes. F. Try to walk several times a day with rest periods between. G. Continue with all the exercises taught to you in the hospital. Again, make walking a part of your daily routine. SPECIAL CARE INSTRUCTIONS: VERY IMPORTANT TO READ AND REVIEW A. You may still be at risk for phlebitis and blood clots. 1. Wear surgical stockings (MARIA G hose) for 2 weeks after surgery to improve circulation and reduce swelling. 2. Take Aspirin 325 mg twice daily for 4 weeks or as directed by your doctor. This is your blood thinner. 3. High risk patients may be prescribed a stronger blood thinner if necessary. 4. If you are on Coumadin normally, your family doctor/test developer should monitor your blood work. Expect a phone call the day of or the day after bloodwork is drawn to adjust your dosage. B. You must take antibiotics before having dental work, bladder, bowel and other surgery. Your doctor will provide you with a permanent card to carry describing precautions. C. Call [facility] if you have a fever, redness or swelling around the incision, cloudy drainage from incision, or sudden increase in pain in your hip, not relieved by your regular pain medication. D. Please call the office at if you have any concerns or questions about your operation or recovery. * YOU MAY SHOWER, NO TUB BATHS UNTIL CLEARED BY YOUR DOCTOR. * WEAR MARIA G HOSE 20 HOURS PER DAY FOR 2 WEEKS. * YOU SHOULD USE A WALKER OR CRUTCHES FOR 2-4 WEEKS. THIS WILL HELP PREVENT STRAIN ON YOUR HIP MUSCLE AND ALLOW IT TO HEAL PROPERLY. YOU MAY WEAN TO A CANE TOLERATED. * MOST PATIENTS WILL HAVE HOME NURSING FOR THERAPY. IF YOU DECIDE TO DO OUTPATIENT PHYSICAL THERAPY, PLEASE SCHEDULE THIS 3 TIMES PER WEEK. * DERMABOND Prineo- This is a mesh tape dressing that is covered with glue. It should remain in place until the incision is properly healed, usually 10-14 days. This dressing is designed to naturally slough off. You may trim the excess mesh tape as it peels off. Incision may be briefly wet in a shower. Dry immediately by blotting with a clean, dry towel. Do not bath or swim until instructed by your doctor. Do not scratch, rub, or pick at the dressing. Do not apply any topical ointments or lotions until dressing is completely removed and/or instructed by your doctor. There may be a small piece of suture material at one end of your incision. Do not pull or trim this. If it is bothersome or catching on clothing, you may cover it with a band-aid. FOLLOW UP VISIT: If appointment is not already scheduled: Please call [facility] to make a follow-up appointment for 2 weeks after your surgery at . Current Hospital Diet Patient's current hospital diet: Regular Diet Discharge Diet Recommended Diet: Regular Diet Procedures Procedures Performed: Right total hip arthroplasty-posterior Pending Studies Studies pending at discharge: no Laboratory Results Hemoglobin A1c Test 06/29/17 15:14 Range/Units Estimated Average Glucose 103 mg/dl Hemoglobin A1c 5.2 4.5-5.6 % Medical Emergencies . Who to Call and When: Medical Emergencies: If at any time you feel your situation is an emergency, please call 911 immediately. . Non-Emergent Contact Non-Emergency issues call your: Surgeon . . "Provider Documentation" section prepared by Gudelia Becrera. . Breeding Technician Recommendations Breeding Technician Recommendations: From Dr. Early - [facility] - 1. For your anemia please take the following - * ferrous sulfate 325mg twice a day for 2 months * folic acid 1mg daily for 1 month * recommend repeat CBC in 5-7 days for stability 2. You have a urinary tract infection. Please take cipro 500mg twice a day for 6 more days then stop. 3. Your thyroid level ("TSH") was mildly depressed. I would recommend that your family doctor recheck the TSH level in 1 month. 4. Please have your "BMP" (electrolytes, kidney function level) rechecked in 5- 7 days as well. 5. See your family doctor within 1 week of getting out of [facility]. 6. Take protonix (pantoprazole) 40mg once a day in the morning while you are taking the high-dose aspirin. This will hopefully prevent stomach upset from the aspirin. Dennys Early MD Core Measure Problem Core Measures: None
[2017-07-21] MEDS: CeleBREX 200 MG CAP PO SCH ×2 (08:40→20:41)
[2017-07-21] MEDS: DOCUSATE SODIUM 100 MG CAP PO SCH ×2 (08:40→20:41)
[2017-07-21] MEDS: ASPIRIN 325 MG ECTAB PO SCH ×2 (08:41→20:44)
[2017-07-21] MEDS ORDERED: HYDROCORTISONE 10 MG TAB PO SCH ×2 (09:00→21:00)
--- NOTE | 2017-07-21 12:22 | Hospitalist Progress Note ---
Hospitalist Progress Note Date of Service Jul 21, 2017. (Staci Karimi PA-C) Subjective Pt evaluation today including: conversation w/ patient, physical exam, chart review, lab review, review of studies Pain: R hip pain PO Intake: Good Voiding: no voiding problems The patient was seen and examined this morning. Pt reports doing well today other than having moderate hip pain. Pt denies any numbness or tingling into her lower leg. She walked with PT/OT about 50 feet today with assistance. She typically uses a walker at baseline at all times. She reports planning on going to SNF for acute rehab after her stay here. Prior to this admission she was living with her son and daughter in law in their home. Pt does not a large fall about 1 month ago, where she sustained injury to the head - pt was worked up in the ED in [place] without acute findings. We discussed fall risk and using walker at all times, she is agreeable to this. Constitutional: No fever, No chills, No sweats Eyes: No redness, No diplopia ENT: No nasal symptoms, No sore throat, No trouble swallowing Respiratory: No cough, No sputum, No shortness of breath Cardiovascular: No chest pain, No palpitations Abdomen: No pain, No nausea, No vomiting, No diarrhea, No constipation Musculoskeletal: No joint pain, No muscle pain, No swelling Female : No dysuria, No hematuria, No incontinence, No vaginal discharge Neurologic: No weakness, No numbness/tingling Endo: No fatigue (Staci Karimi PA-C) Objective Vital Signs Date Time Temp Pulse Resp B/P (MAP) Pulse Ox O2 Delivery O2 Flow Rate FiO2 07/21/17 07:30 Room Air 07/21/17 06:08 36.8 70 16 151/73 (99) 96 Room Air 07/20/17 23:58 Room Air 07/20/17 23:54 36.5 63 20 133/74 (93) 96 Room Air 07/20/17 16:00 Room Air 07/20/17 15:29 36.5 55 17 104/58 (73) 96 Room Air (Staci Karimi PA-C) Physical Exam General Appearance: WD/WN, no apparent distress, + obese Eyes: PERRL, EOMI ENT: hearing grossly normal, pharynx normal Neck: supple, no JVD Respiratory/Chest: lungs clear, no respiratory distress, no accessory muscle use Cardiovascular: regular rate, rhythm, no murmur Abdomen: normal bowel sounds, non tender, soft Extremities: non-tender, no calf tenderness, + pertinent finding (+ chronic edema, nonpitting BLE. R hip incision without surrounding erythema, no drainage. + multiple ecchymotic regions over upper extremities. ) Neurologic/Psychiatric: no motor/sensory deficits, normal mood/affect, oriented x 3 Skin: normal color, warm/dry (Staci Karimi PA-C) Laboratory Results Last 24 Hours Test 07/21/17 05:36 White Blood Count 15.83 K/uL Red Blood Count 2.48 M/uL Hemoglobin 8.2 g/dL Hematocrit 24.8 % Mean Corpuscular Volume 100.0 fL Mean Corpuscular Hemoglobin 33.1 pg Mean Corpuscular Hemoglobin Concent 33.1 g/dl RDW Standard Deviation 57.8 fL RDW Coefficient of Variation 15.9 % Platelet Count 184 K/uL Mean Platelet Volume 10.0 fL Nucleated RBC Absolute Count (auto) 0.06 K/uL Nucleated Red Blood Cells % 0.4 % Sodium Level 139 mmol/L Potassium Level 3.9 mmol/L Chloride Level 107 mmol/L Carbon Dioxide Level 26 mmol/L Anion Gap 6.0 mmol/L Blood Urea Nitrogen 24 mg/dl Creatinine 1.18 mg/dl Est Creatinine Clear Calc Drug Dose 40.4 ml/min Estimated GFR () 49.4 Estimated GFR (Non- 42.6 BUN/Creatinine Ratio 20.5 Random Glucose 99 mg/dl Calcium Level 8.2 mg/dl Vitamin B12 Level 1527 pg/mL Folate 6.73 ng/mL Thyroid Stimulating Hormone (TSH) 0.022 uIu/ml (Staci Karimi PA-C) Assessment and Plan POD #2 s/p right THR - asa 325 mg BID for DVT proph; pain management & disposition - defer to ortho team. 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 - Hold her HCTZ for now. HTN - ok to continue POONAM but hold HCTZ portion of her BP med. Pseudomonas Aeruginosa UTI - UCx resistant to imepenum/gentamycin - D/c macrobid and will change to Cipro 500 mg BID - had pansensitive klebsiella a few weeks ago - leukocytosis improving, VSS CKD stage 3 - creatinine stable. - Cr 1.18 today Macrocytosis - check TSH = 0.022, b12 =1527, folate=6.73 Acute blood loss anemia - start ferrous sulfate 325mg BID. - Hgb dropped from 9.9 to 8.2 today, continue to monitor with am CBC - pt denies fatigue, R hip with some developing ecchymosis. Monitor for hematoma if hgb continues to drop. Hypothyroidism - cont synthroid 75 mcg daily - TSH=0.022 Chronic LE edema - stable today Leukocytosis - likely due to stress dose steroids - improving today down to 15K, follow repeat CBC in am and follow vitals. - afebrile, possible that this is inflammatory response with steroids. DVT ppx: asa 325 mg BID CODE: FULL Disposition: From home, CM assisting with d/c planning to SNF in [place]. Discharge per primary team. (Staci Karimi, PADm) Attending Attestation - Pt seen/examined, chart reviewed, care plan d/w GABE Karimi. I agree w/ the arora components of her documentation. Feels good. Anticipates d/c to SNF tomorrow in [place]. +flatus, no BM, but eating fine w/o nausea/emesis. No dyspnea. VSS afebrile gen - nad neck - no JVD mouth - MMM heart - RRR lungs - CTA b/l abd - soft, NT, ND, BS+ ext - trace edema b/l, right thigh swelling skin - dressings intact right hip Hb 8.2 urine cx - pseudomonas A/P: 1. pseudomonas UTI - stop macrobid, change to cipro; Rx 7 days. 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 3. HTN - controlled. 4. chronic LE edema - cont lasix. 5. acute blood loss anemia - recheck H/H in am. Fe twice daily. 6. macrocytosis - TSH, b12 acceptable; folate low normal - replace. 7. minimally depressed TSH - repeat in 3-4 weeks as outpatient; if still low then lower synthroid dose. Pamela RODGERS MD (Dennys Rodgers MD)
[2017-07-21 15:00] VITALS: BP 128/68; PULSE 63; TEMP 36.7; O2SAT 98
[2017-07-21] MEDS: SENNA 8.6 MG TAB PO SCH (20:43)
[2017-07-21] MEDS: PRAVASTATIN SOD 40 MG TAB PO SCH (20:43)
[2017-07-21] MEDS: CIPROFLOXACIN 500 MG TAB PO SCH (20:45)
[2017-07-21 22:52] VITALS: BP 123/64; PULSE 68; TEMP 36.7; O2SAT 93
[2017-07-22] MEDS: LEVOTHYROXINE 75 MCG TAB PO SCH (05:35)
[2017-07-22] MEDS: ACETAMINOPHEN 500 MG TAB PO SCH ×2 (05:35→13:55)
[2017-07-22 06:31] LABS: HEMATOCRIT 25.1 % (37-47); HEMOGLOBIN 8.4 g/dL (12.0-16.0)
[2017-07-22] MEDS: OXYCODONE HCL IR 5 MG TAB (IMMEDIATE RELEASE) PO PRN ×2 (06:44→14:09)
[2017-07-22 07:04] LABS: CREATININE 1.08 mg/dl (0.60-1.20); POTASSIUM 3.5 mmol/L (3.5-5.1)
[2017-07-22 07:15] VITALS: BP 145/72; PULSE 69; TEMP 36.7; O2SAT 93
--- NOTE | 2017-07-22 07:55 | Orthopedic Progress Note ---
Orthopedic Progress Note Date of Service Jul 22, 2017. Subjective Post OP Day: 3 Reports: feeling well, Denies: chest pain, SOB, nausea / vomiting, light headedness, calf pain Objective calves soft nontender, N/V intact, hip located, capillary refill less than 2 sec., dressing C/D/I, A&O x3, toes mobile Date Time Temp Pulse Resp B/P (MAP) Pulse Ox O2 Delivery O2 Flow Rate FiO2 07/22/17 07:15 36.7 69 18 145/72 (96) 93 07/21/17 23:59 Room Air 07/21/17 22:52 36.7 68 20 123/64 (83) 93 Room Air 07/21/17 15:30 Room Air 07/21/17 15:00 36.7 63 16 128/68 (88) 98 Room Air Laboratory Results 24 Hours: Test 07/22/17 06:13 Hematocrit 25.1 % Hemoglobin 8.4 g/dL Assessment & Plan Assessment: POD#3 s/p R PALMIRA Plan: -Clinda x 24 -DVT ppx - PLAVIX + EC ASA BID -WBAT RLE -PT/OT -Posterior hip precautions -PO XR: Well aligned, well fixed PALMIRA, without evidence of fracture/dislocation -am labs -Med recs appreciated, for steroid dosage, may return to normal home dose -DC planning- DC rehab when bed available, [facility]. STABLE FOR TRANSFER TODAY TO [facility] IF BED AVAILABLE.
[2017-07-22] MEDS ORDERED: HYDROCORTISONE 10 MG TAB PO SCH ×2 (09:00→21:00)
[2017-07-22] MEDS: MULTIVITAMIN TAB PO SCH (09:36)
[2017-07-22] MEDS: PANTOprazole SOD 40 MG TAB PO SCH (09:36)
[2017-07-22] MEDS: DOCUSATE SODIUM 100 MG CAP PO SCH (09:36)
[2017-07-22] MEDS: FERROUS SULFATE 325 MG TAB PO SCH (09:36)
[2017-07-22] MEDS: CLOPIDOGREL BISULFATE 75 MG TAB PO SCH (09:37)
[2017-07-22] MEDS: CIPROFLOXACIN 500 MG TAB PO SCH (09:37)
[2017-07-22] MEDS: POTASSIUM CHLORIDE 10 MEQ TABCR PO SCH (09:38)
[2017-07-22] MEDS: CeleBREX 200 MG CAP PO SCH (09:38)
[2017-07-22] MEDS: ASPIRIN 325 MG ECTAB PO SCH (09:38)
[2017-07-22] MEDS: AMLODIPINE BESYLATE 5 MG TAB PO SCH (09:38)
[2017-07-22] MEDS: FUROSEMIDE 40 MG TAB PO SCH (09:38)
[2017-07-22] MEDS ORDERED: PRT40 PO (13:46)
[2017-07-22] MEDS ORDERED: FLV1 PO (13:46)
[2017-07-22] MEDS ORDERED: FRRS300 PO (13:46)
[2017-07-22] MEDS ORDERED: CPR500 PO (13:46)
[2017-07-22 13:55] VITALS: BP 145/72; PULSE 69; TEMP 36.7; O2SAT 93
--- NOTE | 2017-07-22 15:17 | Hospitalist Progress Note ---
Hospitalist Progress Note Date of Service Jul 22, 2017. (Staci Karimi PA-C) Subjective Pt evaluation today including: conversation w/ patient, physical exam, chart review, lab review, review of studies Pain: Mild R hip pain PO Intake: Good Voiding: no voiding problems The patient was seen and examined this morning. Pt reports doing well today. She has moderate right hip pain which is being well controlled with pain medication. Patient worked with PT/OT earlier this morning without much difficulty. She was using a walker, which she normally does at baseline. Patient is passing gas, no bowel movement yet. No issues with tolerating p.o. intake. Patient is planning on discharge today to [facility]. ROS: 6 point ROS was reviewed and is otherwise negative. (Staci Karimi PA-C) Objective Vital Signs Date Time Temp Pulse Resp B/P (MAP) Pulse Ox O2 Delivery O2 Flow Rate FiO2 07/22/17 13:55 36.7 69 18 93 Room Air 07/22/17 07:15 36.7 69 18 145/72 (96) 93 07/22/17 07:10 Room Air 07/21/17 23:59 Room Air 07/21/17 22:52 36.7 68 20 123/64 (83) 93 Room Air 07/21/17 15:30 Room Air (Staci Karimi PA-C) Physical Exam Notes: General Appearance: WD/WN, no apparent distress, + obese Eyes: PERRL, EOMI ENT: hearing grossly normal, pharynx normal Neck: supple, no JVD Respiratory/Chest: lungs clear, no respiratory distress, no accessory muscle use Cardiovascular: regular rate, rhythm, no murmur Abdomen: normal bowel sounds, non tender, soft Extremities: non-tender, no calf tenderness, + pertinent finding (+ chronic edema, nonpitting BLE. R hip incision without surrounding erythema, no drainage. Developing ecchymosis surrounding right hip incision, + multiple ecchymotic regions over upper extremities. ) Neurologic/Psychiatric: no motor/sensory deficits, normal mood/affect, oriented x 3 Skin: normal color, warm/dry (Staci Karimi PA-C) Laboratory Results Last 24 Hours Test 07/22/17 06:13 Hemoglobin 8.4 g/dL Hematocrit 25.1 % Sodium Level 142 mmol/L Potassium Level 3.5 mmol/L Chloride Level 109 mmol/L Carbon Dioxide Level 26 mmol/L Anion Gap 7.0 mmol/L Blood Urea Nitrogen 21 mg/dl Creatinine 1.08 mg/dl Est Creatinine Clear Calc Drug Dose 44.1 ml/min Estimated GFR () 55.0 Estimated GFR (Non- 47.4 BUN/Creatinine Ratio 19.7 Random Glucose 88 mg/dl Calcium Level 8.0 mg/dl Magnesium Level 2.5 mg/dl (Staci Karimi PA-C) Assessment and Plan POD #3 s/p right THR - asa 325 mg BID for DVT proph; pain management & disposition - defer to ortho team. 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 intake. - Hold her HCTZ for now-resume upon discharge HTN - ok to continue POONAM, resume HCTZ upon discharge Pseudomonas Aeruginosa UTI - UCx resistant to imepenum/gentamycin - D/c macrobid and will change to Cipro 500 mg BID -continue 7 day course total at time of discharge - had pansensitive klebsiella a few weeks ago - leukocytosis improving, VSS CKD stage 3 - creatinine stable. - Cr 1.08 today Macrocytosis - check TSH = 0.022, b12 =1527, folate=6.73 Acute blood loss anemia - start ferrous sulfate 325mg BID. - Hgb dropped from 9.9 to 8.2 on 07/22, now back up to 8.4, stable - pt denies fatigue, R hip with some developing ecchymosis. Monitor for hematoma if hgb continues to drop. Hypothyroidism - cont Synthroid 75 mcg daily - TSH=0.022 Chronic LE edema - stable today Leukocytosis - likely due to stress dose steroids - improved down to 15K on 07/21 - afebrile, possible that this is inflammatory response with steroids. DVT ppx: asa 325 mg BID CODE: FULL Disposition: From home, CM assisting with d/c planning to SNF in [place]. Discharge per primary team. (Stcai Karimi PA-C) Attending Attestation - Pt seen/examined, chart reviewed, care plan d/w GABE Karimi. I agree w/ the arora components of her documentation. No complaints. Still no BM, but having plenty of flatus. Eating well. No nausea/emesis. VSS afebrile gen - nad neck - no JVD mouth - MMM heart - RRR lungs - CTA b/l; scant rales bases abd - soft, NT, ND, BS+ ext - 1+ edema b/l, right thigh swelling unchanged Hb 8.4 urine cx - pseudomonas - sensitive to quinolones A/P: 1. pseudomonas UTI - complete 7-day course of cipro BID 2. 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 HTN - controlled. 4. chronic LE edema - cont lasix. NO evidence of CHF. 5. acute blood loss anemia - H/H stable. Fe twice daily x 1-2 months. 6. macrocytosis - TSH, b12 acceptable; folate low normal - replace x 1 month. 7. minimally depressed TSH - repeat in 3-4 weeks as outpatient; if still low then lower synthroid dose. 8. constipation - bowel regimen. from medical standpoint can transfer to rehab today Pamela RODGERS MD (Dennys Rodgers MD)
--- NOTE | 2017-07-25 16:35 | DISCHARGE SUMMARY ---
DISCHARGE DIAGNOSIS: Degenerative joint disease, right hip. SECONDARY DIAGNOSES: Hood's disease, hypertension, coronary artery disease, history of Klebsiella urinary tract infection in the past, hypothyroidism. CONSULTS: CARMEN Lira/Anthony Priest MD COMPLICATIONS: None. PROCEDURES: Right total hip arthroplasty performed by Dr. Rhoades on 07/19/2017. BRIEF HISTORY: As dictated in history and physical. HOSPITAL SUMMARY: The patient was admitted on the above-noted date and had the above-noted surgery performed which she tolerated well. [facility] hospitalist group was consulted for postoperative medical care, continued to follow the patient during her stay. By her first postoperative day, she was feeling well and had no complaints. Calves were soft and nontender, neurovascularly intact. Dressings were clean, dry and intact. Toes are mobile. Vital signs stable and she was afebrile. Hemoglobin was 9.9, white count was 22.8, which may be secondary to stress from surgery and preoperative steroids; however, with the patient's previous UTI in June, Dr. Early ordered a repeat UA with a culture and started the patient on Macrobid at a precaution. She was started on physical therapy protocol and continued on DVT prophylaxis and pain management. By her second postoperative day, she was lying in bed. She was comfortable, in no acute issues. Pain was well controlled. She denied shortness of breath, chest pain or nausea, vomiting. She was in no acute distress, alert and oriented x3. Right lower extremity neurovascular status was intact and dressings were clean, dry, and intact. Cap refill is less than 2 seconds and vital signs were stable. She is afebrile. Hemoglobin was 8.2. She was continued on stress dose steroids per medicine service due to her Hood's disease and planning for rehab in [facility] versus [facility] depending on which authorization came through. She was continued on PT protocol and medical management. Her urine culture came back pseudomonas and patient was started on Cipro b.i.d. By her third postoperative day, she was feeling well and had no complaints. Calves were soft, nontender. Neurovascularly intact. Hip was located. Dressings clean, dry and intact. Toes were mobile. Vital signs stable. She was afebrile. Hemoglobin was 8.4. She was progressing well with physical therapy and she was remaining medically stable. Her white count continued to improve and it was felt that she could be transferred to [facility] on 07/22/2017. For further review, please see chart. LAB AND X-RAY DATA: As per chart. DISCHARGE INSTRUCTIONS: Patient was discharged to [facility] on 07/22/2017. DIET: Regular. ACTIVITY: Assistance required. The patient to have PT and OT for PALMIRA protocol, weightbearing as tolerated in right lower extremity. Follow [facility]A instruction sheets and special care instructions as noted and follow up with Dr. Rhoades in 2 weeks. DISCHARGE MEDICATIONS: Acetaminophen 1000 mg p.o. q. 8 hours for 30 days, aspirin 325 mg p.o. b.i.d. for 30 days, Celebrex 200 mg p.o. b.i.d., ciprofloxacin 500 mg p.o. b.i.d. for 6 days, ferrous sulfate 325 mg p.o. b.i.d., folic acid 1 mg p.o. q.a.m., Zofran 8 mg p.o. q. 8 hours p.r.n., oxycodone 5-10 mg p.o. q. 4 hours p.r.n., pantoprazole 40 mg p.o. q.a.m., senna 17.2 mg p.o. at bedtime and resume home meds as listed. Stop taking Percocet and after 30 days, resume once daily dosing of aspirin and continue your Plavix 75 mg p.o. q.a.m.
== END 2017-07-22 14:45 | DRG 470 ==
LOC: C.ACU 07:29 → C.3E 07:50 → ENRESERV 13:24
PROVIDERS: ADMIT Orthopaedic Surgery; ATTEND Orthopaedic Surgery
PROC: 0SR90JA Replacement of Right Hip Joint with Synthetic Substitute, Uncemented, Open Approach (ICD-10-PCS; principal; 2017-07-19 10:30)
DX: M16.11 Unilateral primary osteoarthritis, right hip (principal); E27.1 Primary adrenocortical insufficiency; N39.0 Urinary tract infection, site not specified; D62 Acute posthemorrhagic anemia; E78.5 Hyperlipidemia, unspecified; E03.9 Hypothyroidism, unspecified; N18.3 Chronic kidney disease, stage 3 (moderate); I12.9 Hypertensive chronic kidney disease with stage 1 through stage 4 chronic kidney disease, or unspecified chronic kidney disease; D75.89 Other specified diseases of blood and blood-forming organs; A49.8 Other bacterial infections of unspecified site; D72.829 Elevated white blood cell count, unspecified; R60.0 Localized edema; Z88.0 Allergy status to penicillin; Z90.710 Acquired absence of both cervix and uterus

== ENCOUNTER 2018-08-15 09:08 | Inpatient (IN) ==
--- NOTE | 2018-06-21 12:10 | Anesthesiology Consultation ---
Date of Service June 21, 2018 Assessment & Plan (1) Encounter for pre-operative examination: Surgery is being cancelled at this time. (07/07/18) Chart Review Chart Review: Patient seen in Pre Admission Testing Consults Requested medical & cardiac (Dr. Cho, KADIE) Patient was seen by cardiology on 06/28/18. Per note, "she is optimized from a cardiovascular standpoint to proceed with moderate cardiovascular risk surgery. She should proceed accepting the cardiovascular risks." History Surgery Operation Date: 07/11/18 12:05 Proposed Procedures p Right Hip Removal Antibiotic Spacer, Total Hip Revision Arthroplasty - Marcus Rhoades DO Height/Weight Height: 5 ft 6 in Weight: 80.739 kg Allergies Allergy/AdvReac Type Severity Reaction Status Date / Time Penicillins Allergy Mild RASH Verified 06/16/18 09:28 Medications Home Medications Medication Instructions Recorded Confirmed Last Taken acetaminophen 2 tab PO Q6H PRN 06/16/18 06/16/18 Unknown apixaban [Eliquis] 5 mg PO BID 06/16/18 06/16/18 Unknown ascorbic acid (vitamin C) [Vitamin 500 mg PO BID 06/16/18 06/16/18 Unknown C] bisacodyl [Dulcolax (bisacodyl)] 10 mg MI Q3D PRN 06/16/18 06/16/18 Unknown calcium carbonate 600 mg PO QAM 06/16/18 06/16/18 Unknown carvedilol 3.125 mg PO BID 06/16/18 06/16/18 Unknown cholecalciferol (vitamin D3) 1,000 unit PO QAM 06/16/18 06/16/18 Unknown [Vitamin D3] clotrimazole-betamethasone 1 applic TOPICAL BID PRN 06/16/18 06/16/18 Unknown clotrimazole-betamethasone 1 applic TOPICAL BID PRN 06/16/18 06/16/18 Unknown [Lotrisone] docusate sodium 100 mg PO TID 06/16/18 06/16/18 Unknown ferrous gluconate 324 mg PO BID 06/16/18 06/16/18 Unknown furosemide [Lasix] 40 mg PO QAM 06/16/18 06/16/18 Unknown hydrocortisone 15 mg PO QPM 06/16/18 06/16/18 Unknown hydrocortisone 20 mg PO QAM 06/16/18 06/16/18 Unknown lactobacillus combination no.4 1 cap PO QPM 06/16/18 06/16/18 Unknown [Probiotic] levothyroxine 88 mcg PO QPM 06/16/18 06/16/18 Unknown magnesium hydroxide [Milk of 30 ml PO UD PRN 06/16/18 06/16/18 Unknown Magnesia] multivitamin 1 tab PO QAM 06/16/18 06/16/18 Unknown ondansetron HCl [Zofran] 8 mg PO TID PRN 06/16/18 06/16/18 Unknown oxycodone 10 mg PO Q4H PRN 06/16/18 06/16/18 Unknown oxycodone [OxyContin] 20 mg PO Q12H 06/16/18 06/16/18 Unknown potassium chloride [Klor-Con 10] 10 meq PO QAM 06/16/18 06/16/18 Unknown pravastatin 40 mg PO HS 06/16/18 06/16/18 Unknown ranitidine HCl 150 mg PO BID 06/16/18 06/16/18 Unknown sennosides [senna] 2 tab PO HS 06/16/18 06/16/18 Unknown sodium phosphates [Enema] 197 ml MI Q3D PRN 06/16/18 06/16/18 Unknown Past Medical History Medical History CKD (chronic kidney disease) Stage III Cellulitis of right hip Peripheral vascular disease stent in RLE. On ASA/Plavix Sumner disease chronic steroid use HLD (hyperlipidemia) HTN (hypertension) Degenerative joint disease of right hip Blood clot in vein LEFT LEG (FEBRUARY 2018 S/P SURGERY) DX AT [facility] Diastolic dysfunction H/O deep venous thrombosis LLE Hypothyroidism Obesity Osteoarthritis Pituitary adenoma hx/o. 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 Past Family History Family History Sister Family history of diabetes mellitus Past Surgical History Surgical History H/O total hip arthroplasty right PALMIRA H/O: hysterectomy History of colonoscopy History of esophagogastroduodenoscopy (EGD) History of hip surgery RT HIP (CLEANED OUT WITH SPACER) FEBRUARY 2018 03/17/18: MAC #3 with ETT #7.0 HiLo with Grade 1 View. Atraumatic with 1 attempt History of tooth extraction Past Anesthesia History No Hx of Anesthesia Complications and No Family Hx of Anesthesia Complications History of PONV No Motion Sickness Screening History of Motion Sickness: No Social History Smoking Status: Never smoker Do You Dip or Chew Tobacco: No Hx Alcohol Use: No Hx Substance Use: No substance use type: does not use Exercise / Class Metabolic Activity III < 4 Walking/Shop/Light housework (Currently limited to standing and pivoting. When hip is doing better she can walk with a walker. Denies CP or SOB now or when she was more active. ) Review of Systems Patient denies chest pain, shortness of breath, dyspnea on exertion, reflux, cough, wheezing, palpitations. +joint pain (knees, hip, left shoulder) Physical Exam Vital Signs BP: 94/64 P: 93 R: 16 T: 98.0 SPO2: 96% on RA Constitutional Wheel chair bound ENMT Mouth: + dentures (Upper and Lower) and + edentulous Thyromental Distance: < 3.5 Finger Breadths (3) Mallampati Class: II Neck normal visual inspection and trachea midline; neck extension not limited Respiratory normal respiratory effort Auscultation: lungs clear to auscultation bilaterally Cardiovascular Rate/Rhythm: regular rate and regular rhythm Heart Sounds: no murmur Vessels: no carotid bruit Neurologic moves all extremities Psychiatric Orientation: alert and oriented x 3 Testing Electrocardiogram Date: 06/21/18 Findings: + NSR @ (63) Left anterior fascicular block. Right ventricular conduction delay. Chest X-Ray Date: 06/21/18 Findings: + NAD FINDINGS: Central catheter in the superior vena cava. Lungs appear generally clear. Pleural reactive changes left base laterally most likely chronic in part. Slight accentuation left basilar parenchymal markings a chronic basis. Severe degenerative change left and to lesser extent right shoulder. IMPRESSION: Chronic and postoperative change. No acute process. Laboratory Results 06/21/18 11:41 06/21/18 11:41 Blood Type O Positive 06/21/18 11:41 Antibody Screen POSITIVE A 06/21/18 11:41 PT 11.1 Seconds (9.0-12.0) 06/21/18 11:41 INR 1.1 (0.9-1.1) 06/21/18 11:41 APTT 27.9 Seconds (21.0-31.0) 06/21/18 11:41 Hemoglobin A1c 5.5 % (4.5-5.6) 06/21/18 11:41 Urine Color Yellow 06/21/18 Unknown Urine Appearance Clear (Clear) 06/21/18 Unknown Urine pH 5.0 (4.5-7.5) 06/21/18 Unknown Ur Specific Delta 1.012 (1.000-1.030) 06/21/18 Unknown Urine Protein Negative (Negative) 06/21/18 Unknown Urine Glucose (UA) Negative (Negative) 06/21/18 Unknown Urine Ketones Negative (Negative) 06/21/18 Unknown Urine Nitrite Negative (Negative) 06/21/18 Unknown Ur Leukocyte Esterase 2+ (Negative) H 06/21/18 Unknown Urine WBC (Auto) >30 /hpf (0-5) H 06/21/18 Unknown Urine RBC (Auto) 0-4 /hpf (0-4) 06/21/18 Unknown U Hyaline Cast (Auto) 1-5 /lpf (0-5) 06/21/18 Unknown U Epithel Cells (Auto) 0-5 /lpf (0-5) 06/21/18 Unknown Urine Bacteria (Auto) Negative (Negative) 06/21/18 Unknown 06/21/18 Unknown Urine Culture - Final Urine,Clean Catch Enterococcus faecium VRE Pseudomonas aeruginosa Surgeon's office made aware of elevated WBC (daily hydrocortisone use) and elevated BUN/Cr compared to baseline.
--- NOTE | 2018-06-21 12:41 | PAT Medication Instructions ---
Medication Instructions Date of Service June 21, 2018 Home Medications acetaminophen 2 tab PO Q6H PRN apixaban [Eliquis] 5 mg PO BID ascorbic acid (vitamin C) [Vitamin 500 mg PO BID bisacodyl [Dulcolax (bisacodyl)] 10 mg [place] Q3D PRN calcium carbonate 600 mg PO QAM carvedilol 3.125 mg PO BID cholecalciferol (vitamin D3) 1,000 unit PO QAM clotrimazole-betamethasone 1 applic TOPICAL BID clotrimazole-betamethasone 1 applic TOPICAL BID docusate sodium 100 mg PO TID ferrous gluconate 324 mg PO BID furosemide [Lasix] 40 mg PO QAM hydrocortisone 15 mg PO QPM hydrocortisone 20 mg PO QAM lactobacillus combination no.4 1 cap PO QPM levothyroxine 88 mcg PO QPM magnesium hydroxide [Milk of 30 ml PO UD PRN multivitamin 1 tab PO QAM ondansetron HCl [Zofran] 8 mg PO TID PRN oxycodone 10 mg PO Q4H PRN oxycodone [OxyContin] 20 mg PO Q12H potassium chloride [Klor-Con 10] 10 meq PO QAM pravastatin 40 mg PO HS ranitidine HCl 150 mg PO BID sennosides [senna] 2 tab PO HS sodium phosphates [Enema] 197 ml TX Q3D PRN ASK your prescriber and surgeon apixaban [Eliquis] 5 mg PO BID (in order for spinal anesthesia, Eliquis needs to be held 72 hours prior to surgery-- please check with provider that prescribes this to see if this is okay) STOP taking 24 hours before surgery clotrimazole-betamethasone 1 applic TOPICAL BID clotrimazole-betamethasone 1 applic TOPICAL BID DO NOT take the morning of surgery ascorbic acid (vitamin C) [Vitamin 500 mg PO BID bisacodyl [Dulcolax (bisacodyl)] 10 mg [place] Q3D PRN calcium carbonate 600 mg PO QAM cholecalciferol (vitamin D3) 1,000 unit PO QAM docusate sodium 100 mg PO TID ferrous gluconate 324 mg PO BID furosemide [Lasix] 40 mg PO QAM lactobacillus combination no.4 1 cap PO QPM magnesium hydroxide [Milk of 30 ml PO UD PRN multivitamin 1 tab PO QAM potassium chloride [Klor-Con 10] 10 meq PO QAM sodium phosphates [Enema] 197 ml [place] Q3D PRN ranitidine HCl 150 mg PO BID Take morning of surgery With a small sip of water, OTHERWISE NOTHING TO EAT OR DRINK AFTER MIDNIGHT: acetaminophen 2 tab PO Q6H PRN (okay to take up to 4 hours prior to surgery if needed) carvedilol 3.125 mg PO BID hydrocortisone 20 mg PO QAM ondansetron HCl [Zofran] 8 mg PO TID PRN (if needed) oxycodone 10 mg PO Q4H PRN (okay to take up to 4 hours prior to surgery if needed) oxycodone [OxyContin] 20 mg PO Q12H (okay to take up to 4 hours prior to surgery if needed) Other Notes If you have any questions please call us at [phone] or [phone] or [phone] or [phone]
--- NOTE | 2018-06-21 13:02 | XRay Report ---
XR chest Pre-admission PA/Lat CLINICAL HISTORY: pat preoperative evaluation COMPARISON STUDY: 11/29/2017 FINDINGS: Central catheter in the superior vena cava. Lungs appear generally clear. Pleural reactive changes left base laterally most likely chronic in part. Slight accentuation left basilar parenchymal markings a chronic basis. Severe degenerative change left and to lesser extent right shoulder. IMPRESSION: Chronic and postoperative change. No acute process. The above report was generated using voice recognition software. It may contain grammatical, syntax or spelling errors. Electronically signed by: Say Poe M.D. 06/21/2018 1:00 PM
[2018-06-21 13:06] LABS: Hematocrit (blood only) 35.3 % (37-47); Hemoglobin 11.5 g/dL (12.0-16.0); Mean Corpuscular Hgb Conc 32.6 g/dL (32-36); Nucleated RBC # (auto) 0.13 K/uL (0-0); Nucleated RBC % (auto) 0.7 %; Platelet Count 244 K/uL (130-400); RDW Coefficient of Variation 17.2 % (11.5-14.5); RDW Standard Deviation 66.2 fL (36.4-46.3); Red Blood Count 3.33 M/uL (4.2-5.4); White Blood Count 18.82 K/uL (4.8-10.8)
[2018-06-21 13:17] LABS: Albumin Level 2.8 gm/dl (3.4-5.0); BUN Creatinine Ratio 27.5 (10-20); Calcium 8.9 mg/dl (8.5-10.1); Creatinine Clr Calc Pharmacy 32.1 ml/min; Est GFR (African American) 39.9; Est GFR (Non-African American) 34.4; Potassium 3.8 mmol/L (3.5-5.1)
[2018-06-21 13:20] LABS: INR 1.1 (0.9-1.1); Partial Thromboplastin Time 27.9 Seconds (21.0-31.0); Prothrombin Time 11.1 Seconds (9.0-12.0)
[2018-06-21 13:21] LABS: Estimated Average Glucose 111 mg/dl; Hemoglobin A1C 5.5 % (4.5-5.6)
[2018-06-21 13:22] LABS: Appearance Urine Clear (Clear); Bacteria Urine Automated Negative (Negative); Bilirubin Urine Negative (Negative); Blood Urine Negative (Negative); Color Urine Yellow; Epithelial Cell Urine Auto 0-5 /lpf (0-5); Glucose Urine UA Negative (Negative); Ketones Urine Negative (Negative); Leukocyte Esterase Urine 2+ (Negative); Nitrite Urine Negative (Negative); Protein Urine Negative (Negative); RBC Urine Automated 0-4 /hpf (0-4); Specific Gravity Urine 1.012 (1.000-1.030); Urobilinogen Urine Negative (Negative); WBC Urine Automated >30 /hpf (0-5)
[2018-06-21 13:30] LABS: ALC (manual) 1.88 K/uL (1.2-3.4); Eosinophils # (manual) 0.38 K/uL (0-0.5); Hypogranular Neutrophils 1+; Lymphocytes # (manual) 1.88 K/uL (1.2-3.4); Monocytes # (manual) 0.19 K/uL (0.11-0.59); Myelocytes # (manual) 0.19 K/uL (0-0)
--- NOTE | 2018-07-17 10:25 | PAT Medication Instructions ---
Medication Instructions Date of Service July 17, 2018 Home Medications acetaminophen 2 tab PO Q6H NEEDED apixaban [Eliquis] 5 mg PO BID ascorbic acid (vitamin C) 500 mg PO BID bisacodyl [Dulcolax (bisacodyl)] 10 mg CA Q3D NEEDED calcium carbonate 600 mg PO QAM carvedilol 3.125 mg PO BID cholecalciferol (vitamin D3) 1,000 unit PO QAM clotrimazole-betamethasone [Lotrisone] 1 applic TOPICAL BID NEEDED docusate sodium 100 mg PO TID ferrous gluconate 324 mg PO BID furosemide [Lasix] 40 mg PO QAM hydrocortisone 1.5 tab PO BID lactobacillus combination no.4 [Probiotic] 1 cap PO QPM magnesium hydroxide [Milk of Magnesia] 30 ml PO NEEDED ondansetron HCl [Zofran] 8 mg PO TID NEEDED oxycodone 10 mg PO Q4H NEEDED oxycodone [OxyContin] 20 mg PO Q12H potassium chloride [Klor-Con 10] 10 meq PO QAM pravastatin 40 mg PO HS ranitidine HCl 150 mg PO BID sennosides [senna] 2 tab PO HS sodium phosphates [Enema] 197 ml CA Q3D NEEDED clopidogrel [Plavix] 75 mg PO QAM levothyroxine 75 mcg PO QPM ASK your prescriber and surgeon apixaban [Eliquis] 5 mg PO BID (in order for spinal anesthesia, Eliquis needs to be held 72 hours prior to surgery) clopidogrel [Plavix] 75 mg PO QAM (in order for spinal anesthesia, Plavix needs to be held for 7 days prior to surgery) STOP taking 24 hours before surgery clotrimazole-betamethasone [Lotrisone] 1 applic TOPICAL BID NEEDED DO NOT take the morning of surgery ascorbic acid (vitamin C) 500 mg PO BID bisacodyl [Dulcolax (bisacodyl)] 10 mg CA Q3D NEEDED calcium carbonate 600 mg PO QAM cholecalciferol (vitamin D3) 1,000 unit PO QAM docusate sodium 100 mg PO TID ferrous gluconate 324 mg PO BID furosemide [Lasix] 40 mg PO QAM magnesium hydroxide [Milk of Magnesia] 30 ml PO NEEDED potassium chloride [Klor-Con 10] 10 meq PO QAM sodium phosphates [Enema] 197 ml CA Q3D NEEDED Take morning of surgery With a small sip of water, OTHERWISE NOTHING TO EAT OR DRINK AFTER MIDNIGHT: acetaminophen 2 tab PO Q6H NEEDED carvedilol 3.125 mg PO BID hydrocortisone 1.5 tab PO BID ondansetron HCl [Zofran] 8 mg PO TID NEEDED oxycodone 10 mg PO Q4H NEEDED (okay to take up to 4 hours prior to surgery if needed) oxycodone [OxyContin] 20 mg PO Q12H ranitidine HCl 150 mg PO BID Take evening before surgery acetaminophen 2 tab PO Q6H NEEDED ascorbic acid (vitamin C) 500 mg PO BID carvedilol 3.125 mg PO BID docusate sodium 100 mg PO TID ferrous gluconate 324 mg PO BID hydrocortisone 1.5 tab PO BID lactobacillus combination no.4 [Probiotic] 1 cap PO QPM magnesium hydroxide [Milk of Magnesia] 30 ml PO NEEDED ondansetron HCl [Zofran] 8 mg PO TID NEEDED oxycodone 10 mg PO Q4H NEEDED oxycodone [OxyContin] 20 mg PO Q12H pravastatin 40 mg PO HS ranitidine HCl 150 mg PO BID sennosides [senna] 2 tab PO HS levothyroxine 75 mcg PO QPM Other Notes If you have any questions please call us at [phone] or [phone] or [phone] or [phone]
--- NOTE | 2018-08-14 19:24 | History & Physical Report ---
Date of Service August 14, 2018 Assessment & Plan (1) Infection of prosthetic total hip joint: s/p explant R PALMIRA, placement of antibiotic cement spacer, prolonged IV abx I have indicated the patient for removal of antibiotic cement spacer, revision right PALMIRA. The risks, complications, benefits of surgery were explained at length with the patient and family which include however not limited to infection, blood clots, acute blood loss, injury to surrounding nerves, bone, soft tissue, vessels, arthrofibrosis, chronic pain syndrome, hip dislocation and leg length discrepancy, failure of the prosthesis, revision surgeries, cardiac and pulmonary events and . The patient and family wished to proceed with surgical intervention at this time and informed consent was obtained. We will plan restarting patients Eliquis post-operatively for DVT prophylaxis. Upon discharge the patient will be discharged home with home health services vs SNF. Appropriate clearances by PCP and cardiology were obtained. Stress steroid dose will be given perioperatively History of Present Illness Chief Complaint: Right right PJI, s/p explant, antibiotic cement spacer Primary Care Provider: Adam Cho The patient is an 82-year-old female with chronic periprosthetic right total hip infection treated with previous I&D and head and liner exchange, chronic suppressive antibiotics, local wound care, explant of prosthesis and placement of antibiotic cement spacer on 03/17/19, completed prolonged course IV abx. Negative IA right hip aspiration after antibiotic holiday for greater than 2 weeks. The patients surgery was delayed secondary to recurrent RLE cellulitis. The patient was cleared by your PCP DR. Cho to proceed with revision R PALMIRA. Allergies Allergy/AdvReac Type Severity Reaction Status Date / Time Penicillins Allergy Mild RASH Verified 08/15/18 10:07 Home Medications Home Medications Medication Instructions Recorded Confirmed Type acetaminophen 2 tab PO Q6H PRN 06/16/18 07/17/18 History apixaban [Eliquis] 5 mg PO BID 06/16/18 07/17/18 History ascorbic acid (vitamin C) [Vitamin 500 mg PO BID 06/16/18 08/15/18 History C] bisacodyl [Dulcolax (bisacodyl)] 10 mg [place] Q3D PRN 06/16/18 07/17/18 History calcium carbonate 600 mg PO QAM 06/16/18 08/15/18 History carvedilol 3.125 mg PO BID 06/16/18 08/15/18 History cholecalciferol (vitamin D3) 1,000 unit PO QAM 06/16/18 08/15/18 History [Vitamin D3] clotrimazole-betamethasone 1 applic TOPICAL BID PRN 06/16/18 08/15/18 History clotrimazole-betamethasone 1 applic TOPICAL BID PRN 06/16/18 08/15/18 History [Lotrisone] docusate sodium 100 mg PO TID 06/16/18 07/17/18 History ferrous gluconate 324 mg PO BID 06/16/18 08/15/18 History furosemide [Lasix] 40 mg PO QAM 06/16/18 08/15/18 History hydrocortisone 1.5 tab PO BID 06/16/18 08/15/18 History lactobacillus combination no.4 1 cap PO QPM 06/16/18 08/15/18 History [Probiotic] magnesium hydroxide [Milk of 30 ml PO UD PRN 06/16/18 07/17/18 History Magnesia] ondansetron HCl [Zofran] 8 mg PO TID PRN 06/16/18 07/17/18 History oxycodone 10 mg PO Q4H PRN 06/16/18 07/17/18 History oxycodone [OxyContin] 20 mg PO Q12H 06/16/18 08/15/18 History potassium chloride [Klor-Con 10] 10 meq PO QAM 06/16/18 08/15/18 History pravastatin 40 mg PO HS 06/16/18 08/15/18 History ranitidine HCl 150 mg PO BID 06/16/18 08/15/18 History sennosides [senna] 2 tab PO HS 06/16/18 08/15/18 History sodium phosphates [Enema] 197 ml [place] Q3D PRN 06/16/18 07/17/18 History clopidogrel [Plavix] 75 mg PO QAM 07/17/18 08/15/18 History levothyroxine 75 mcg PO QPM 07/17/18 07/17/18 History Past Med/Surg History Medical History CKD (chronic kidney disease) Stage III Cellulitis of right hip Peripheral vascular disease stent in RLE. On ASA/Plavix [place] disease chronic steroid use HLD (hyperlipidemia) HTN (hypertension) Degenerative joint disease of right hip Blood clot in vein LEFT LEG (FEBRUARY 2018 S/P SURGERY) DX AT [facility] Diastolic dysfunction H/O deep venous thrombosis LLE Hypothyroidism Obesity Osteoarthritis Pituitary adenoma hx/o. 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 Surgical History H/O total hip arthroplasty right PALMIRA H/O: hysterectomy History of colonoscopy History of esophagogastroduodenoscopy (EGD) History of hip surgery RT HIP (CLEANED OUT WITH SPACER) FEBRUARY 2018 03/17/18: MAC #3 with ETT #7.0 HiLo with Grade 1 View. Atraumatic with 1 attempt History of tooth extraction Family History Sister Family history of diabetes mellitus Social History Preferred Language: Turkish Communication Ability: Effective Visual Impairment: Limited Travelers' Aid Worker Required: No Beliefs That Will Affect Care: None Current Living Situation: Residential Current Living Situation Comment: [facility] Other Information That Helps Us Care for You: No Feels Safe at Home: Yes Safety Concerns: Feels Safe At This Time Smoking Status: Never smoker Do You Dip or Chew Tobacco: No Second Hand Exposure: Yes (IN THE PAST) Hx Alcohol Use: No Hx Substance Use: No Review of Systems Review of Systems: All systems reviewed & are unremarkable except as noted in HPI & below Constitutional: as per Subjective / HPI Physical Exam Physical Exam: RLE NVSI +EHL/FHL/TA/GS SILT grossly, +2 DP pulse, compartments soft NT, incision cdi Constitutional: WD/WN, vitals as above Eyes: PERRL, conjunctivae normal, anicteric sclerae ENMT: external ear and nose normal, oropharynx normal Neck: trachea midline, no thyromegaly Respiratory: normal respiratory effort, lungs clear to auscultation Cardiovascular: RRR, no murmur, no edema Gastrointestinal (Abdomen): normal bowel sounds, soft, nontender, no hepatosplenomegaly Musculoskeletal: no cyanosis or clubbing, extremities motor strength 5/5 Skin: no rashes, warm and dry Neurologic: patellar DTR's 2+ bilat, sensation intact Psychiatric: A+Ox3, euthymic affect Genitourinary: no vaginal lesions, no adnexal mass Lymphatic: no cervical or axillary lymphadenopathy
[~2018-08-15 09:08] MED LIST changes: -AMLO-110 PO; -ASCO1CAP3 PO; -ASPI81TA28 PO; -ATROPINE SULFATE 0.1 MG/ML 5ML SYR IV PRN; -CLOP1TAB15 PO; -CYAN500T13 PO; -DEXAMETHASONE 4 MG TAB PO SCH; -ERGO500037 PO; -EpHEDrine SULFATE INJ 50 MG/ML AMP IV PRN; -FENTANYL CITRATE INJ 50 MCG/1 ML 2 ML VIAL ONE; -FRS/40 PO; -GABAPENTIN 300 MG CAP PO SCH; +GENERAL ORDER PROBLEM SCH; -HYDROCORTISONE PO; -HYDROmorphone INJ 2 MG/ML SYR/VIAL IV PRN; -LACTATED RINGER'S 1000ML 1,000 ML IV SCH; -LACTATED RINGER'S 1000ML 500 ML IV SCH; -LEVO75TA PO; +LR 500ML BOLUS, THEN 15ML/HR IV SCH; -METOCLOPRAMIDE HCL 10 MG TAB PO SCH; +METOCLOPRAMIDE HCL 10 MG TABLET PO SCH; -MIDAZOLAM HCL 1 MG/ML 2ML VIAL ONE; -MULT-506 PO; -ONDANSETRON INJ 2 MG/ML 2 ML VIAL IV PRN; -OXYC-57 PO; -PHENYLEPHRINE 100MCG/ML 5ML SYR IV PRN; -POTA10CA28 PO; -PRAV20TA PO; +ROPIVACAINE 0.5% HCL/PF 150 MG, BUPIVACAINE 0.5% MPF 30 ML, EPINEPHrine 30MG/30ML (OR U... INFIL SCH; -ROPIVACAINE 5MG/ML 30 ML 150 MG, BUPIVACAINE 0.5% MPF INJ 30 ML, EpINEphrine HCL INJ 0.... INFIL SCH; +TRANEXAMIC ACID 1,000 MG **IV Intra-op IV SCH; +TRANEXAMIC ACID 1,000 MG **IV Pre-op IV SCH; -VANCOMYCIN IV 1,250 MG in SODIUM CHLORIDE 0.9% 250ML 250 ML IV SCH; +dexAMETHasone 4 MG TAB PO SCH
[2018-08-15] MEDS ORDERED: MIDAZOLAM HCL 1 MG/ML 2ML VIAL ONE (09:16)
[2018-08-15] MEDS ORDERED: KETAMINE HCL INJ 50 MG/ML 10 ML VIAL ONE (09:17)
--- OUTSIDE RECORDS SUMMARY | 2018-08-15 09:41 | External Medical Summary | Continuity of Care Document ---
:1935 Author Name Neville Finney Address Unavailable Unavailable , Care Team Providers Name Role Phone [facility] M.DRenita Unavailable [email or web address] [email or web address], NO Unavailable Unavailable Problems Active medical history not documented Allergies and Adverse Reactions Allergy history not documented Medications Medications not documented Procedures Procedures not documented Immunizations Immunizations not documented Plan of Treatment Planned Observations Planned Goals not documented Results No Known Results Results not documented
[2018-08-15] MEDS ORDERED: POVIDONE-IODINE OP SOLN 30 ML BTL ONE (10:23)
[2018-08-15] MEDS ORDERED: BACITRACIN INJ 50,000 UNIT VIAL ONE ×2 (10:23→15:11)
[2018-08-15] MEDS ORDERED: ORTHO JOINT ANESTHETIC ONE (10:23)
--- NOTE | 2018-08-15 11:48 | History & Physical Bridge Note ---
Date of Service August 15, 2018 History & Physical Bridge Note I have examined the patient, reviewed the History & Physical and in the interval since the performance of the History & Physical I have noted the following changes of clinical significance: no changes noted
[2018-08-15] MEDS ORDERED: CIPROFLOXACIN 400 MG/200 ML BAG IV SCH (12:00)
[2018-08-15] MEDS ORDERED: DAPTOmycin 500 MG VIAL IV SCH (12:00)
[2018-08-15] MEDS ORDERED: ONDANSETRON INJ 2 MG/ML 2 ML VIAL IV PRN ×2 (12:03→17:47)
[2018-08-15] MEDS ORDERED: LABETALOL HCL IV 5 MG/ML 20ML IV PRN (12:03)
[2018-08-15] MEDS ORDERED: ATROPINE SULFATE 0.1 MG/ML 10ML SYR IV PRN (12:03)
[2018-08-15] MEDS ORDERED: CIPROFLOXACIN 400MG / 200ML D5W IV ONE (12:06)
[2018-08-15] MEDS ORDERED: HYDROCORTISONE SOD SUCCINATE 100 MG/2 ML VIAL ONE (12:13)
[2018-08-15] MEDS ORDERED: DAPTOmycin 350 MG in SYRINGE 0 ML IV ONE (12:15)
[2018-08-15] MEDS ORDERED: fentaNYL citrate 100 MCG/2 ML VIAL ONE (12:17)
[2018-08-15] MEDS ORDERED: PROPOFOL IV EMULSION 10 MG/ML 20 ML VIAL IV ONE (13:03)
[2018-08-15] MEDS ORDERED: LIDOCAINE HCL 2% 2 ML VIAL/AMP(20MG/ML) INFIL ONE (13:03)
[2018-08-15] MEDS ORDERED: ONDANSETRON INJ 2 MG/ML 2 ML VIAL ONE (13:03)
[2018-08-15] MEDS ORDERED: ROCURONIUM BROMIDE 10 MG/ML 5 ML VIAL ONE (13:03)
[2018-08-15] MEDS ORDERED: HYDROmorphone INJ 2 MG/ML SYR/VIAL ONE (14:46)
--- NOTE | 2018-08-15 15:33 | Post Operative Brief Note ---
Immediate Post Op Note v1 Date of Surgery August 15, 2018 Pre & Post Diagnosis Operation Date: 08/15/18 11:15 Pre-Op Diagnosis: Right Hip Osteoarthritis Post-Op Diagnosis: Right Hip Osteoarthritis Procedure Operation Date: 08/15/18 11:15 Actual Procedures p Right Hip Removal Antibiotic Spacer, Total Hip Revision Arthroplasty(Right) - Marcus Rhoades DO Excision of scar Surgeon Marcus Rhoades DO Casing Man Adolfo Rhodes Estimated Blood Loss 450 Findings Consistent with Post-Op Diagnosis Fluids 1000 cc LR Specimens culture deep right hip x 2 Drains Powers Catheter and Hemovac Drain (10 FR DUAL TROCAR *2) Anesthesia Type General Complications none Disposition Disposition: Recovery Room Overlapping Procedure I was present for: the critical portions of procedure. I was immediately available: during the entire case. Back up surgeon: was not required during procedure.
[2018-08-15] MEDS: HYDROmorphone INJ 1 MG/ML SYRINGE IV PRN ×3 (16:35→16:50)
--- NOTE | 2018-08-15 17:14 | Anesthesiology Progress Note ---
Date of Service August 15, 2018 Anesthesia Post Procedure Vital Signs Vital Signs: Temp Pulse Pulse Resp BP Pulse Ox 08/15/18 17:05 75 17 125/60 100 08/15/18 16:55 73 16 125/62 100 08/15/18 16:45 75 15 137/68 100 08/15/18 16:35 76 16 131/80 100 08/15/18 16:25 79 14 136/69 100 08/15/18 16:18 36.4 C L 78 15 146/73 H 100 08/15/18 10:12 36.8 C 58 L 20 106/84 96 Pain Intensity Right Hip: Pain Intensity: 7 Transfer of Care Handoff Completed per policy Notes Mental Status: alert / awake / arousable and participated in evaluation Patient Amnestic to Procedure: Yes Nausea / Vomiting: adequately controlled Pain: adequately controlled Airway Patency, RR, SpO2: stable & adequate BP & HR: stable & adequate Hydration State: stable & adequate Anesthetic Complications: no major complications apparent and Pt Satisfied with anesthetic care
--- NOTE | 2018-08-15 17:29 | XRay Report ---
XR hip 1V RT w pelvis CLINICAL HISTORY: IN PACU - A/P PELVIS and LATERAL HIP COMPARISON: 03/18/2018 DISCUSSION: Anatomic alignment post total right hip revision. There is a longstem femoral prosthetic. Expected soft tissue postoperative changes are noted. Surgical drains are present. There is a right thigh arterial stent in position. IMPRESSION: Anatomic alignment post total right hip revision arthroplasty. The above report was generated using voice recognition software. It may contain grammatical, syntax or spelling errors. Electronically signed by: Say Peo M.D. 08/15/2018 5:28 PM
[2018-08-15] MEDS ORDERED: HYDROmorphone INJ 0.5 MG/0.5 ML SYR IV PRN (17:47)
[2018-08-15] MEDS ORDERED: NALOXONE HCL 0.4 MG/1 ML VIAL/CARP IV PRN (17:47)
[2018-08-15] MEDS ORDERED: MAGNESIUM HYDROXIDE SUSP 30 ML UDC PO PRN (17:47)
[2018-08-15] MEDS ORDERED: BISACODYL 10 MG SUPP PR PRN (17:47)
[2018-08-15] MEDS ORDERED: METOCLOPRAMIDE HCL INJ 5 MG/ML 2 ML VIAL IV PRN (17:47)
--- NOTE | 2018-08-15 19:31 | Orthopedic Progress Note ---
Date of Service August 15, 2018 Assessment & Plan (1) Infection of prosthetic total hip joint: Status post removal of antibiotic cement spacer, revision right total hip arthroplasty, excision of scar -Postoperative antibiotics daptomycin and Cipro, continue until cultures negative -DVT prophylaxis we will restart patient's home Eliquis -Weight-bear as tolerated right lower extremity -Posterior hip precautions -PT/OT -Postoperative x-ray demonstrates a well aligned well fixed orthopedic p rosthesis without evidence of fracture or dislocation -Monitor drain output -Medical hospitalist consult Subjective Post Operative Progress Note Patient seen in PACU, comfortable, denies complaints, pain well controlled, no acute issues. Still awakening from general anesthesia Review of Systems Review of Systems: All systems reviewed & are unremarkable except as noted in HPI & below Constitutional: as per Subjective / HPI Physical Exam Physical Exam: RLE NVSI +EHL/FHL/TA/GS SILT grossly, +2 DP pulse, compartments soft NT, dressing cdi. Results & Data Vital Signs (Past 12 Hours) Vital Signs Temp Pulse Pulse Resp BP Pulse Ox 08/15/18 19:18 99/65 L 08/15/18 19:16 36.3 C L 70 14 89/55 L 100 08/15/18 18:29 35.5 C L 79 14 93/60 L 98 08/15/18 18:04 36.5 C 72 16 101/67 100 08/15/18 17:30 36.4 C L 70 14 108/65 100 08/15/18 17:15 36.3 C L 75 17 131/65 100 08/15/18 17:05 75 17 125/60 100 08/15/18 16:55 73 16 125/62 100 08/15/18 16:45 75 15 137/68 100 08/15/18 16:35 76 16 131/80 100 08/15/18 16:25 79 14 136/69 100 08/15/18 16:18 36.4 C L 78 15 146/73 H 100 08/15/18 10:12 36.8 C 58 L 20 106/84 96
[2018-08-15] MEDS ORDERED: HYDROCORTISONE SOD SUCCINATE 100 MG/2 ML VIAL IV STA (19:32)
--- NOTE | 2018-08-15 19:32 | Internal Medicine Consult Note ---
Date of Consultation August 15, 2018 Right Hip Removal Antibiotic Spacer, Total Hip Revision Arthroplasty Surgeon: Marcus Rhoades Assessment & Plan (1) Infection of prosthetic total hip joint: Right Hip Removal Antibiotic Spacer, Total Hip Revision Arthroplasty Surgeon: Marcus Rhoades placed on iv cipro perioperatively as did have pseudomonas in culture from hip from 03/05, did also have VRE UTi that was treated surgeon has restarted eliquis 08/16/18 (2) CKD (chronic kidney disease): ckd 3 with appropriate dose adjustments (3) [place] disease: pt ordered cortef 30 mg bid, post op blood pressure is slightly low, will give one dose of hydrocortisone and follow clinically (4) HLD (hyperlipidemia): typically takes pravastatin (5) HTN (hypertension): blood pressure is slightly low will order coreg but have hold parameters History of Present Illness Attending Physician: Marcus Rhoades, DO History of Present Illness post op medical management for pt with antibiotic spacer for pseudomonas prosthetic hip infection, now for revision, pseudomonas was sensitive to cipro, does have addisions disease from pituitary adenoma pt is lethargic but does wake up, her pain is in reasonable control. she is in agreement to taking additional hydrocortisone iv today Allergies Allergy/AdvReac Type Severity Reaction Status Date / Time Penicillins Allergy Mild RASH Verified 08/15/18 10:07 Home Medications Home Medications Medication Instructions Recorded Confirmed Type acetaminophen 2 tab PO Q6H PRN 06/16/18 07/17/18 History apixaban [Eliquis] 5 mg PO BID 06/16/18 07/17/18 History ascorbic acid (vitamin C) [Vitamin 500 mg PO BID 06/16/18 08/15/18 History C] bisacodyl [Dulcolax (bisacodyl)] 10 mg [place] Q3D PRN 06/16/18 07/17/18 History calcium carbonate 600 mg PO QAM 06/16/18 08/15/18 History carvedilol 3.125 mg PO BID 06/16/18 08/15/18 History cholecalciferol (vitamin D3) 1,000 unit PO QAM 06/16/18 08/15/18 History [Vitamin D3] clotrimazole-betamethasone 1 applic TOPICAL BID PRN 06/16/18 08/15/18 History clotrimazole-betamethasone 1 applic TOPICAL BID PRN 06/16/18 08/15/18 History [Lotrisone] docusate sodium 100 mg PO TID 06/16/18 07/17/18 History ferrous gluconate 324 mg PO BID 06/16/18 08/15/18 History furosemide [Lasix] 40 mg PO QAM 06/16/18 08/15/18 History hydrocortisone 1.5 tab PO BID 06/16/18 08/15/18 History lactobacillus combination no.4 1 cap PO QPM 06/16/18 08/15/18 History [Probiotic] magnesium hydroxide [Milk of 30 ml PO UD PRN 06/16/18 07/17/18 History Magnesia] ondansetron HCl [Zofran] 8 mg PO TID PRN 06/16/18 07/17/18 History oxycodone 10 mg PO Q4H PRN 06/16/18 07/17/18 History oxycodone [OxyContin] 20 mg PO Q12H 06/16/18 08/15/18 History potassium chloride [Klor-Con 10] 10 meq PO QAM 06/16/18 08/15/18 History pravastatin 40 mg PO HS 06/16/18 08/15/18 History ranitidine HCl 150 mg PO BID 06/16/18 08/15/18 History sennosides [senna] 2 tab PO HS 06/16/18 08/15/18 History sodium phosphates [Enema] 197 ml [place] Q3D PRN 06/16/18 07/17/18 History clopidogrel [Plavix] 75 mg PO QAM 07/17/18 08/15/18 History levothyroxine 75 mcg PO QPM 07/17/18 07/17/18 History Patient History Family History Sister Family history of diabetes mellitus Social History Preferred Language: Nepali Communication Ability: Effective Visual Impairment: Limited 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 No double vision blurry vision No problems with speech or swallowing No palpitations, chest pain or pressure No Wheezing or breathing issues No abdominal pain nausea vomiting diarrhea changes in appetite or weight No burning urine urine frequency or changes in color right hip pain No skin rashes or oral lesions No unusual bruising or bleeding No focused back pain or numbness or loss of strength is mildly sleepy Physical Exam Physical Exam: The patient appeared well nourished and normally developed. Vital signs as documented. Head exam is unremarkable. normocephalic, atraumatic Neck is without jugular venous distension, thyromegaly, or lymphademopathy Lungs are clear to auscultation and percussion. Cardiac exam reveals Rhythm is regular. First and second heart sounds normal. Abdominal exam reveals normal bowel sounds, no masses, no organomegaly Extremities are nonedematous and both pedal pulses are present, wiggles toes bilaterally Neurologic exam is A&Ox3, is slightly sleepy Skin is warm Dry without bruises or lesions Results & Data Vital Signs (Past 12 Hours) Vital Signs Temp Pulse Pulse Resp BP Pulse Ox 08/15/18 19:18 99/65 L 08/15/18 19:16 36.3 C L 70 14 89/55 L 100 08/15/18 18:29 35.5 C L 79 14 93/60 L 98 08/15/18 18:04 36.5 C 72 16 101/67 08/15/18 17:30 36.4 C L 70 14 108/65 100 08/15/18 17:15 36.3 C L 75 17 131/65 100 08/15/18 17:05 75 17 125/60 100 08/15/18 16:55 73 16 125/62 100 08/15/18 16:45 75 15 137/68 100 08/15/18 16:35 76 16 131/80 08/15/18 16:25 79 14 136/69 100 08/15/18 16:18 36.4 C L 78 15 146/73 H 100 08/15/18 10:12 36.8 C 58 L 20 106/84 96
[2018-08-15] MEDS ORDERED: HYDROCORTISONE SOD 50 MG in SYRINGE 0 ML IV ONE (19:45)
[2018-08-15] MEDS: SODIUM CHLORIDE 0.9% 1000ML 1,000 ML IV SCH (20:37)
[2018-08-15] MEDS: CARVEDILOL 3.125 MG TAB PO SCH (20:38)
[2018-08-15] MEDS: SENNA 8.6 MG TAB PO SCH (20:39)
[2018-08-15] MEDS: PRAVASTATIN SOD 40 MG TAB PO SCH (20:39)
[2018-08-15] MEDS: DOCUSATE SODIUM 100 MG CAP PO SCH (20:40)
[2018-08-15] MEDS: ACETAMINOPHEN 500 MG TAB PO SCH (21:29)
[2018-08-15] MEDS: OXYCODONE HCL IR 5 MG TAB (IMMEDIATE RELEASE) PO PRN (22:32)
[2018-08-15] MEDS: CIPROFLOXACIN 400 MG/200 ML BAG IV SCH (23:29)
[2018-08-16] MEDS: ACETAMINOPHEN 500 MG TAB PO SCH ×3 (05:56→20:54)
[2018-08-16] MEDS: SODIUM CHLORIDE 0.9% 1000ML 1,000 ML IV SCH (05:57)
[2018-08-16 06:15] LABS: BUN Creatinine Ratio 21.9 (10-20); Calcium 7.8 mg/dl (8.5-10.1); Creatinine Clr Calc Pharmacy 23.9 ml/min; Est GFR (African American) 28.9; Est GFR (Non-African American) 24.9; Potassium 4.6 mmol/L (3.5-5.1)
[2018-08-16 06:19] LABS: Hematocrit (blood only) 22.6 % (37-47); Hemoglobin 7.3 g/dL (12.0-16.0); Mean Corpuscular Hgb Conc 32.3 g/dL (32-36); Mean Corpuscular Volume 103.2 fL (80-100); Mean Platelet Volume 10.3 fL (7.4-10.4); Nucleated RBC # (auto) 0.31 K/uL (0-0); Nucleated RBC % (auto) 0.9 %; Platelet Count 253 K/uL (130-400); RDW Coefficient of Variation 16.7 % (11.5-14.5); RDW Standard Deviation 61.6 fL (36.4-46.3); Red Blood Count 2.19 M/uL (4.2-5.4); White Blood Count 35.62 K/uL (4.8-10.8)
[2018-08-16 06:24] LABS: ALC (manual) 0.61 K/uL (1.2-3.4); Lymphocytes # (manual) 0.61 K/uL (1.2-3.4); Lymphocytes % (manual) 1.7 %; Metamyelocytes # (manual) 0.61 K/uL (0-0); Metamyelocytes % (manual) 1.7 %; Myelocytes # (manual) 0.93 K/uL (0-0); Myelocytes % (manual) 2.6 %; Polychromasia 1+
[2018-08-16] MEDS: DOCUSATE SODIUM 100 MG CAP PO SCH ×2 (08:26→20:55)
[2018-08-16] MEDS: MULTIVITAMIN TAB PO SCH (08:26)
[2018-08-16] MEDS: APIXABAN 5 MG TABLET PO SCH ×2 (08:26→20:55)
[2018-08-16] MEDS: POTASSIUM CHLORIDE 10 MEQ TABCR PO SCH (08:26)
[2018-08-16] MEDS: OXYCODONE HCL IR 5 MG TAB (IMMEDIATE RELEASE) PO PRN (08:29)
[2018-08-16] MEDS: CARVEDILOL 3.125 MG TAB PO SCH ×2 (08:30→20:49)
[2018-08-16] MEDS ORDERED: SODIUM CHLORIDE 0.9% 250 ML IV PRN (08:57)
[2018-08-16] MEDS ORDERED: SODIUM CHLORIDE 0.9% 1000ML 1,000 ML IV SCH ×2 (09:00→22:30)
[2018-08-16] MEDS ORDERED: HYDROCORTISONE 10 MG TAB PO SCH (09:00)
[2018-08-16] MEDS ORDERED: FUROSEMIDE 40 MG TAB PO SCH (09:00)
[2018-08-16] MEDS ORDERED: HYDROCORTISONE SOD 50 MG in SYRINGE 0 ML IV SCH (09:00)
--- NOTE | 2018-08-16 09:48 | Hospitalist Progress Note ---
Date of Service August 16, 2018 Assessment & Plan (1) Infection of prosthetic total hip joint: Right Hip Removal Antibiotic Spacer, Total Hip Revision Arthroplasty Surgeon: Marcus Rhoades placed on iv cipro perioperatively as did have pseudomonas in culture from hip from 03/05, did also have VRE UTi that was treated surgeon has restarted eliquis 08/16/18 continue pain control per surgery (2) CKD (chronic kidney disease): ckd 3 with appropriate dose adjustments (3) ANDREW (acute kidney injury): Creatinine 1.83 today. Baseline appears to be around 1.4. Will give 2 units prbcs and 1 liter NSS. Urine output is low, will continue to monitor, may need to give 500 ml bolus if output doesn't picker packer this afternoon. Hold furosemide. Repeat prp am (4) Acute blood loss anemia: Hgb 7.3 this morning. Patient symptomatic with low pressures, pale skin and dizziness. - 2 units PRBCs and recheck cbc am (5) [place] disease: Continue home cortef 30 mg bid but stress dose with hydrocortisone tid IV while pressures are running low (6) HLD (hyperlipidemia): typically takes pravastatin (7) HTN (hypertension): Continue coreg with hold parameters. Hold furosemide Subjective Ms. Harrison was dizzy and pale this morning per nursing. She is pleasant when I saw her bedside but does admit to pain in her hip and fatigue Review of Systems Review of Systems: All systems reviewed & are unremarkable except as noted in HPI & below Physical Exam Physical Exam: General: no distress Eyes: normal inspection, PERLL Respiratory: chest non tender, clear to auscultation, normal breath sounds, no respiratory distress, no accessory muscle use Cardiac: regular rate and rhythm, no rub or gallop, no murmur, no edema, no jvd GI/: active bowel sounds, no abd pain or tenderness, soft, non distended Extremities: normal range of motion, normal strength, non tender Neuro/Psych: alert and oriented x 3, normal mood and affect Skin: pale, dry Results & Data Vital Signs (Past 12 Hours) Vital Signs Temp Pulse Pulse Pulse Resp BP BP 08/16/18 09:46 36.2 C L 92 H 18 97/61 L 08/16/18 07:45 36.2 C L 87 18 95/62 L 08/16/18 03:21 94/59 L 08/16/18 02:42 36.4 C L 86 16 82/52 L 08/15/18 22:35 35.8 C L 73 16 110/56 L Pulse Ox 08/16/18 09:46 96 08/16/18 07:45 96 08/16/18 03:21 08/16/18 02:42 93 08/15/18 22:35 97
--- NOTE | 2018-08-16 10:16 | Anesthesiology Progress Note ---
Date of Service August 16, 2018 Anesthesia Post Procedure Vital Signs Vital Signs: Temp Pulse Pulse Pulse Resp BP BP 08/16/18 10:03 36.5 C 87 15 77/47 L 08/16/18 09:46 36.2 C L 92 H 18 97/61 L 08/16/18 07:45 36.2 C L 87 18 95/62 L 08/16/18 03:21 94/59 L 08/16/18 02:42 36.4 C L 86 16 82/52 L 08/15/18 22:35 35.8 C L 73 16 110/56 L 08/15/18 20:17 36.3 C L 74 16 95/59 L 08/15/18 19:18 99/65 L 08/15/18 19:16 36.3 C L 70 14 89/55 L 08/15/18 18:29 35.5 C L 79 14 93/60 L 08/15/18 18:04 36.5 C 72 16 101/67 08/15/18 17:30 36.4 C L 70 14 108/65 08/15/18 17:15 36.3 C L 75 17 131/65 08/15/18 17:05 75 17 125/60 08/15/18 16:55 73 16 125/62 08/15/18 16:45 75 15 137/68 08/15/18 16:35 76 16 131/80 08/15/18 16:25 79 14 136/69 08/15/18 16:18 36.4 C L 78 15 146/73 H Pulse Ox 08/16/18 10:03 92 08/16/18 09:46 96 08/16/18 07:45 96 08/16/18 03:21 08/16/18 02:42 93 08/15/18 22:35 97 08/15/18 20:17 96 08/15/18 19:18 08/15/18 19:16 100 08/15/18 18:29 98 08/15/18 18:04 100 08/15/18 17:30 100 08/15/18 17:15 100 08/15/18 17:05 100 08/15/18 16:55 100 08/15/18 16:45 100 08/15/18 16:35 100 08/15/18 16:25 100 08/15/18 16:18 100 Pain Intensity Right Hip: Pain Intensity: 2 Notes Mental Status: alert / awake / arousable and participated in evaluation Patient Amnestic to Procedure: Yes Nausea / Vomiting: adequately controlled Pain: adequately controlled Airway Patency, RR, SpO2: stable & adequate BP & HR: stable & adequate Hydration State: stable & adequate Anesthetic Complications: no major complications apparent
--- NOTE | 2018-08-16 11:39 | XRay Report ---
XR chest 1V portable CLINICAL HISTORY: confirm picc placement COMPARISON STUDY: Chest radiograph June 21, 2018. FINDINGS: Incidental note is made of severe osteoarthritis of the bilateral glenohumeral joints, grea ter on the left. There is no pneumothorax. Blunting of the left costophrenic angle versus epicardial fat pad is unchanged. Cardiomediastinal silhouette is stable. Tip of right PICC projects over the dis bailey SVC. Old left sixth rib fracture is incidentally noted. IMPRESSION: Tip of right PICC projects over the distal SVC. Electronically signed by: Rafat Dewitt M.D. 08/16/2018 11:38 AM
[2018-08-16] MEDS ORDERED: DAPTOmycin 350 MG in SYRINGE 0 ML IV SCH (12:00)
[2018-08-16] MEDS: CIPROFLOXACIN 400 MG/200 ML BAG IV SCH ×2 (12:05→23:42)
--- NOTE | 2018-08-16 13:09 | Orthopedic Progress Note ---
Date of Service August 16, 2018 Assessment & Plan (1) Infection of prosthetic total hip joint: Status post removal of antibiotic cement spacer, revision right total hip arthroplasty, excision of scar -Postoperative antibiotics daptomycin and Cipro, continue until cultures negative -DVT prophylaxis : Teds/Eliquis, SCDs on operative extemity -Weight-bear as tolerated right lower extremity -Posterior hip precautions -PT/OT -Postoperative x-ray demonstrates a well aligned well fixed orthopedic prosthesis without evidence of fracture or dislocation -AM labs - hgb 7.3, will transfuse 2 units -Monitor drain output #1 25 #2 50 -Medical hospitalist consult recs appreciated Subjective Post Operative Progress Note Patient seen sitting up in bed, comfortable, denies complaints, pain well controlled, no acute issues. Review of Systems Review of Systems: All systems reviewed & are unremarkable except as noted in HPI & below Constitutional: as per Subjective / HPI Physical Exam Physical Exam: RLE NVSI +EHL/FHL/TA/GS SILT grossly, +2 DP pulse, compartments soft NT, dressing cdi. Constitutional: WD/WN, vitals as above Results & Data Vital Signs (Past 12 Hours) Vital Signs Temp Pulse Pulse Pulse Resp BP BP 08/16/18 11:48 36.6 C 79 15 106/69 08/16/18 11:15 36.4 C L 86 15 99/62 L 08/16/18 10:45 36.5 C 87 16 92/56 L 08/16/18 10:15 36.5 C 85 15 99/63 L 08/16/18 10:03 36.5 C 87 15 77/47 L 08/16/18 09:46 36.2 C L 92 H 18 97/61 L 08/16/18 07:45 36.2 C L 87 18 95/62 L 08/16/18 03:21 94/59 L 08/16/18 02:42 36.4 C L 86 16 82/52 L Pulse Ox 08/16/18 11:48 96 08/16/18 11:15 94 08/16/18 10:45 92 08/16/18 10:15 94 08/16/18 10:03 92 08/16/18 09:46 96 08/16/18 07:45 96 08/16/18 03:21 08/16/18 02:42 93
[2018-08-16] MEDS: HYDROCORTISONE SOD 50 MG in SYRINGE 0 ML IV SCH ×2 (13:51→20:54)
[2018-08-16] MEDS ORDERED: SODIUM CHLORIDE 0.9% 1000ML 500 ML IV ONE (18:16)
[2018-08-16] MEDS: SENNA 8.6 MG TAB PO SCH (20:54)
[2018-08-16] MEDS: PRAVASTATIN SOD 40 MG TAB PO SCH (20:55)
[2018-08-17] MEDS: SODIUM CHLORIDE 0.9% 1000ML 1,000 ML IV SCH ×3 (00:56→14:42)
[2018-08-17] MEDS: HYDROCORTISONE SOD 50 MG in SYRINGE 0 ML IV SCH ×2 (05:42→13:20)
[2018-08-17] MEDS: ACETAMINOPHEN 500 MG TAB PO SCH ×3 (05:42→21:22)
[2018-08-17 07:05] LABS: Hematocrit (blood only) 22.4 % (37-47); Hemoglobin 7.6 g/dL (12.0-16.0); Mean Corpuscular Hgb Conc 33.9 g/dL (32-36); Mean Corpuscular Volume 92.9 fL (80-100); Mean Platelet Volume 10.7 fL (7.4-10.4); Nucleated RBC # (auto) 0.12 K/uL (0-0); Nucleated RBC % (auto) 0.6 %; Platelet Count 154 K/uL (130-400); RDW Coefficient of Variation 22.8 % (11.5-14.5); RDW Standard Deviation 76.9 fL (36.4-46.3); Red Blood Count 2.41 M/uL (4.2-5.4); White Blood Count 21.16 K/uL (4.8-10.8)
[2018-08-17 07:06] LABS: ALC (manual) 2.39 K/uL (1.2-3.4); Anisocytosis Present; Echinocytes 1+; Lymphocytes # (manual) 2.39 K/uL (1.2-3.4); Lymphocytes % (manual) 11.3 %; Monocytes # (manual) 0.19 K/uL (0.11-0.59); Monocytes % (manual) 0.9 %; Myelocytes # (manual) 0.36 K/uL (0-0); Myelocytes % (manual) 1.7 %; Neutrophils % (manual) 86.1 %
[2018-08-17 07:07] LABS: BUN Creatinine Ratio 19.4 (10-20); Calcium 6.9 mg/dl (8.5-10.1); Creatinine Clr Calc Pharmacy 19.5 ml/min; Est GFR (African American) 22.5; Est GFR (Non-African American) 19.4; Potassium 4.3 mmol/L (3.5-5.1)
[2018-08-17] MEDS ORDERED: SODIUM CHLORIDE 0.9% 250 ML IV PRN ×2 (08:02→08:13)
[2018-08-17] MEDS: DOCUSATE SODIUM 100 MG CAP PO SCH ×2 (08:12→21:21)
[2018-08-17] MEDS: MULTIVITAMIN TAB PO SCH (08:12)
[2018-08-17] MEDS: CARVEDILOL 3.125 MG TAB PO SCH ×2 (08:12→21:22)
[2018-08-17] MEDS: POTASSIUM CHLORIDE 10 MEQ TABCR PO SCH (08:12)
[2018-08-17] MEDS: APIXABAN 5 MG TABLET PO SCH (08:12)
[2018-08-17] MEDS: CALCIUM 600MG + VIT D 400 IU TAB PO SCH ×3 (08:46→21:23)
[2018-08-17] MEDS ORDERED: DAPTOMYCIN CONSULT ACTIVE PRN (10:05)
[2018-08-17] MEDS ORDERED: CIPROFLOXACIN CONSULT ACTIVE PRN (10:06)
--- NOTE | 2018-08-17 15:11 | Orthopedic Progress Note ---
Date of Service August 17, 2018 Assessment & Plan (1) Infection of prosthetic total hip joint: Status post removal of antibiotic cement spacer, revision right total hip arthroplasty, excision of scar POD#2 -Postoperative antibiotics daptomycin and Cipro, continue until cultures negative -DVT prophylaxis : Teds/Eliquis, SCDs on operative extremity -Weight-bear as tolerated right lower extremity -Posterior hip precautions -PT/OT -Postoperative x-ray demonstrates a well aligned well fixed orthopedic prosthesis without evidence of fracture or dislocation -AM labs - hgb 7.6, will transfuse 1 unit -Monitor drain output #1 0 #2 50 -Medical hospitalist consult recs appreciated POD#1 -Postoperative antibiotics daptomycin and Cipro, continue until cultures negative -DVT prophylaxis : Teds/Eliquis, SCDs on operative extremity -Weight-bear as tolerated right lower extremity -Posterior hip precautions -PT/OT -Postoperative x-ray demonstrates a well aligned well fixed orthopedic prosthesis without evidence of fracture or dislocation -AM labs - hgb 7.3, will transfuse 2 units -Monitor drain output #1 25 #2 50 -Medical hospitalist consult recs appreciated Subjective Post Operative Progress Note Patient seen sitting up in bed, comfortable, denies complaints, pain well controlled, no acute issues. Review of Systems Review of Systems: All systems reviewed & are unremarkable except as noted in HPI & below Constitutional: as per Subjective / HPI Physical Exam Physical Exam: RLE NVSI +EHL/FHL/TA/GS SILT grossly, +2 DP pulse, compartments soft NT, dressing cdi. Constitutional: WD/WN, vitals as above Results & Data Vital Signs (Past 12 Hours) Vital Signs Temp Pulse Pulse Resp BP BP Pulse Ox 08/17/18 15:04 36.3 C L 67 16 125/78 98 08/17/18 12:59 36.4 C L 60 18 137/79 94 08/17/18 12:48 36.6 C 69 18 128/83 99 08/17/18 12:00 36.5 C 69 18 133/75 98 08/17/18 11:59 36.3 C L 71 18 117/79 97 08/17/18 11:29 36.4 C L 66 17 127/76 96 08/17/18 11:21 08/17/18 11:14 73 18 116/62 97 08/17/18 10:56 36.3 C L 76 18 134/69 08/17/18 08:18 36.4 C L 70 16 118/67 95 Pulse Ox 08/17/18 15:04 08/17/18 12:59 08/17/18 12:48 08/17/18 12:00 08/17/18 11:59 08/17/18 11:29 08/17/18 11:21 96 08/17/18 11:14 08/17/18 10:56 08/17/18 08:18
[2018-08-17] MEDS: OXYCODONE HCL IR 5 MG TAB (IMMEDIATE RELEASE) PO PRN ×2 (17:13→23:18)
--- NOTE | 2018-08-17 18:14 | Hospitalist Progress Note ---
Date of Service August 17, 2018 Assessment & Plan (1) Infection of prosthetic total hip joint: Right Hip Removal Antibiotic Spacer, Total Hip Revision Arthroplasty Surgeon: Marcus Rhoades placed on iv cipro perioperatively as did have pseudomonas in culture from hip from 03/05, did also have VRE UTi that was treated surgeon has restarted eliquis 08/16/18 continue pain control per surgery (2) CKD (chronic kidney disease): ckd 3 with appropriate dose adjustments (3) ANDREW (acute kidney injury): Creatinine continues to elevate to 2.2. Baseline appears to be around 1.4. Will give another 2 units prbcs but will discontinue fluids to avoid overload. Possible ATN due to hypotension post operatively. Urine output is low, will continue to monitor. Hold furosemide. Repeat prp am (4) Acute blood loss anemia: Hgb 7.6 this morning. 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 Discontinue stress dosing as blood pressures have rebounded (6) HLD (hyperlipidemia): typically takes pravastatin (7) HTN (hypertension): Continue coreg with hold parameters. Hold furosemide (8) Hypocalcemia: Asymptomatic - will give oral replacement and check again tomorrow Subjective Ms. Harrison is sitting up, feeling a bit better as far as pain. She is not symptomatic from her low blood count. Review of Systems Review of Systems: All systems reviewed & are unremarkable except as noted in HPI & below Physical Exam Physical Exam: General: no distress Eyes: normal inspection, PERLL Respiratory: chest non tender, clear to auscultation, normal breath sounds, no respiratory distress, no accessory muscle use Cardiac: regular rate and rhythm, no rub or gallop, no murmur, no edema, no jvd GI/: active bowel sounds, no abd pain or tenderness, soft, non distended Extremities: normal range of motion, normal strength, non tender Neuro/Psych: alert and oriented x 3, normal mood and affect Skin: normal color, dry Results & Data Vital Signs (Past 12 Hours) Vital Signs Temp Pulse Pulse Resp BP BP Pulse Ox 08/17/18 18:06 36.7 C 65 18 130/80 100 08/17/18 17:26 36.3 C L 67 16 131/79 99 08/17/18 16:56 36.7 C 66 18 119/72 99 08/17/18 16:41 36.4 C L 66 18 128/72 100 08/17/18 16:20 36.3 C L 69 18 126/75 99 08/17/18 15:04 36.3 C L 67 16 125/78 98 08/17/18 12:59 36.4 C L 60 18 137/79 94 08/17/18 12:48 36.6 C 69 18 128/83 99 08/17/18 12:00 36.5 C 69 18 133/75 98 08/17/18 11:59 36.3 C L 71 18 117/79 97 08/17/18 11:29 36.4 C L 66 17 127/76 96 08/17/18 11:21 08/17/18 11:14 73 18 116/62 97 08/17/18 10:56 36.3 C L 76 18 134/69 08/17/18 08:18 36.4 C L 70 16 118/67 95 Pulse Ox 08/17/18 18:06 08/17/18 17:26 08/17/18 16:56 08/17/18 16:41 08/17/18 16:20 08/17/18 15:04 08/17/18 12:59 08/17/18 12:48 08/17/18 12:00 08/17/18 11:59 08/17/18 11:29 08/17/18 11:21 96 08/17/18 11:14 08/17/18 10:56 08/17/18 08:18
[2018-08-17] MEDS: PRAVASTATIN SOD 40 MG TAB PO SCH (21:21)
[2018-08-17] MEDS: APIXABAN 2.5 MG TAB PO SCH (21:23)
[2018-08-17] MEDS: SENNA 8.6 MG TAB PO SCH (21:23)
[2018-08-17] MEDS ORDERED: CIPROFLOXACIN 400 MG/200 ML BAG IV SCH (23:00)
[2018-08-18] MEDS: ACETAMINOPHEN 500 MG TAB PO SCH ×3 (05:53→21:33)
[2018-08-18 05:55] LABS: Hematocrit (blood only) 26.3 % (37-47); Hemoglobin 9.1 g/dL (12.0-16.0); Mean Corpuscular Hgb Conc 34.6 g/dL (32-36); Mean Corpuscular Volume 90.7 fL (80-100); Mean Platelet Volume 10.3 fL (7.4-10.4); Nucleated RBC # (auto) 0.23 K/uL (0-0); Nucleated RBC % (auto) 1.7 %; Platelet Count 132 K/uL (130-400); RDW Coefficient of Variation 20.2 % (11.5-14.5); RDW Standard Deviation 64.9 fL (36.4-46.3); White Blood Count 12.94 K/uL (4.8-10.8)
[2018-08-18 06:49] LABS: Anisocytosis Present; Basophils # (auto) 0.05 K/uL (0-0.2); Basophils % (auto) 0.4 %; Eosinophils # (auto) 0.11 K/uL (0-0.5); Eosinophils % (auto) 0.9 %; Immature Granulocytes # (auto) 0.73 K/uL (0.00-0.02); Immature Granulocytes % (auto) 5.6 %; Lymphocytes # (auto) 2.34 K/uL (1.2-3.4); Lymphocytes % (auto) 18.1 %; Monocytes # (auto) 1.15 K/uL (0.11-0.59); Monocytes % (auto) 8.9 %; Neutrophils # (auto) 8.56 K/uL (1.4-6.5); Neutrophils % (auto) 66.1 %
[2018-08-18 06:54] LABS: BUN Creatinine Ratio 20.4 (10-20); Calcium 8.1 mg/dl (8.5-10.1); Creatinine Clr Calc Pharmacy 27.7 ml/min; Est GFR (African American) 31.3; Potassium 4.1 mmol/L (3.5-5.1)
[2018-08-18] MEDS: DOCUSATE SODIUM 100 MG CAP PO SCH ×2 (08:29→20:51)
[2018-08-18] MEDS: APIXABAN 2.5 MG TAB PO SCH ×2 (08:29→20:51)
[2018-08-18] MEDS: MULTIVITAMIN TAB PO SCH (08:29)
[2018-08-18] MEDS: CALCIUM 600MG + VIT D 400 IU TAB PO SCH ×3 (08:29→20:51)
[2018-08-18] MEDS: CARVEDILOL 3.125 MG TAB PO SCH ×2 (08:30→20:51)
--- NOTE | 2018-08-18 08:43 | Progress Note ---
DATE: 08/18/2018 SUBJECTIVE: The patient is postop day 3 status post revision right PALMIRA with removal of antibiotic spacer. She is currently lying in bed and is awake and alert. She states that she does have pain with getting in and out of bed and she feels that ambulation is still somewhat difficult. She denies any shortness of breath, chest pain or lightheadedness and currently while in bed, her pain is controlled. OBJECTIVE: Prevena dressing is clean, dry and intact. There is no overt drainage noted in the collection unit itself. She had approximately 100 mL out of her 1 Hemovac and 0 out of the other. Her thigh is soft and she has some slight tenderness around the thigh, but is not tensed. No overt erythema noted. Calves were soft, nontender. Neurovascular is intact. Toes were mobile. Leg lengths appear equal. ASSESSMENT: Postop day 3 status post revision right PALMIRA with removal of antibiotic spacer. PLAN: I have spoken to Dr. Rhoades this morning. Plans will be to continue current antibiotic treatment until the cultures come back finalized while she is here. If there is no growth, antibiotics will be discontinued. We will discuss with medicine service about continuing to taper her steroids while she is here and continue her PT and OT protocols. The patient does have a bed waiting for her at a skilled facility and plans will be hopefully to get her there this weekend. Plans will be to continue the Hemovac drain at this time until the drainage continues to slow down somewhat with the 1 Hemovac drain.
[2018-08-18] MEDS: OXYCODONE HCL IR 5 MG TAB (IMMEDIATE RELEASE) PO PRN ×2 (08:45→14:04)
[2018-08-18] MEDS ORDERED: DAPTOmycin 350 MG in SYRINGE 0 ML IV SCH (12:00)
--- NOTE | 2018-08-18 13:07 | Hospitalist Progress Note ---
Date of Service August 18, 2018 Assessment & Plan (1) Infection of prosthetic total hip joint: Right Hip Removal Antibiotic Spacer, Total Hip Revision Arthroplasty Surgeon: Marcus Rhoades placed on iv cipro perioperatively as did have pseudomonas in culture from hip from 03/05, did also have VRE UTi that was treated surgeon has restarted eliquis 08/16/18 continue pain control per surgery (2) CKD (chronic kidney disease): ckd 3 with appropriate dose adjustments (3) ANDREW (acute kidney injury): Likely ATN due to hypotension postop. Creatinine peaked at 2.2 and is trending down. Baseline appears to be around 1.4. Urine output has started to pick back up. 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 Discontinue stress dosing as blood pressures have rebounded (6) HLD (hyperlipidemia): typically takes pravastatin (7) HTN (hypertension): Continue coreg with hold parameters. Hold furosemide (8) Hypocalcemia: Asymptomatic - improved with oral replacement Subjective Ms. Harrison is feeling better today. She's up to a chair, no complaints. Review of Systems Review of Systems: All systems reviewed & are unremarkable except as noted in HPI & below Physical Exam Physical Exam: General: no distress Eyes: normal inspection, PERLL Respiratory: chest non tender, clear to auscultation, normal breath sounds, no respiratory distress, no accessory muscle use Cardiac: regular rate and rhythm, no rub or gallop, no murmur, no edema, no jvd GI/: active bowel sounds, no abd pain or tenderness, soft, non distended Extremities: normal range of motion, normal strength, non tender Neuro/Psych: alert and oriented x 3, normal mood and affect Skin: normal color, dry Results & Data Vital Signs (Past 12 Hours) Vital Signs Temp Pulse Resp BP Pulse Ox 08/18/18 07:18 36.6 C 69 18 125/68 95 08/18/18 06:06 36.5 C 72 16 170/72 H 92
--- NOTE | 2018-08-18 14:25 | Infectious Disease Consult ---
Date of Consultation August 18, 2018 Assessment & Plan (1) Post op infection: will continue dapto, stop cipro, no gnr found, previous pseudomonas was quinolone resistant, add fluconazole due to C. albicans now growing. 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 will check blood cultures as well. States she plans to follow with ID in [place] post d/c as this is closer to home. History of Present Illness Attending Physician: Marcus Rhoades DO pt admitted for elective hip replacement. had infected hip in 02/2018 - culture grew quinolone resistant pseudomonas, underwent removal and spacer placement. was treated with IV abx, follow with ID in [facility] for this. 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 per ortho notes, was taken off of abx and underwent aspiration of hip, culture reportedly negative. Admitted and underwent revision and new hip placed, tolerated well. Intraop cultures dated 08/15 - C. albicans and rare IT TECHNICAL SUPPORT SPECIALIST - no sensitivities done. was placed on Dapto and cipro post op, tolerating well. no blood cultures done. wbc was 35 on admission, improved to 12.9 today. creat 1.7. recent uti - vre, reportedly treated. denies f/c. no abd pain, poor appetite, no n/v/d. no cp, sob, cough, harrell. hip drains remain in place. c/o pain in hip currently, was oob to chair prior to my exam. otherwise, feeling well. Allergies Allergy/AdvReac Type Severity Reaction Status Date / Time Penicillins Allergy Mild RASH Verified 08/15/18 10:07 Home Medications Home Medications Medication Instructions Recorded Confirmed Type acetaminophen 2 tab PO Q6H PRN 06/16/18 07/17/18 History apixaban [Eliquis] 5 mg PO BID 06/16/18 07/17/18 History ascorbic acid (vitamin C) [Vitamin 500 mg PO BID 06/16/18 08/15/18 History C] bisacodyl [Dulcolax (bisacodyl)] 10 mg OR Q3D PRN 06/16/18 07/17/18 History calcium carbonate 600 mg PO QAM 06/16/18 08/15/18 History carvedilol 3.125 mg PO BID 06/16/18 08/15/18 History cholecalciferol (vitamin D3) 1,000 unit PO QAM 06/16/18 08/15/18 History [Vitamin D3] clotrimazole-betamethasone 1 applic TOPICAL BID PRN 06/16/18 08/15/18 History clotrimazole-betamethasone 1 applic TOPICAL BID PRN 06/16/18 08/15/18 History [Lotrisone] docusate sodium 100 mg PO TID 06/16/18 07/17/18 History ferrous gluconate 324 mg PO BID 06/16/18 08/15/18 History furosemide [Lasix] 40 mg PO QAM 06/16/18 08/15/18 History hydrocortisone 1.5 tab PO BID 06/16/18 08/15/18 History lactobacillus combination no.4 1 cap PO QPM 06/16/18 08/15/18 History [Probiotic] magnesium hydroxide [Milk of 30 ml PO UD PRN 06/16/18 07/17/18 History Magnesia] ondansetron HCl [Zofran] 8 mg PO TID PRN 06/16/18 07/17/18 History oxycodone 10 mg PO Q4H PRN 06/16/18 07/17/18 History oxycodone [OxyContin] 20 mg PO Q12H 06/16/18 08/15/18 History potassium chloride [Klor-Con 10] 10 meq PO QAM 06/16/18 08/15/18 History pravastatin 40 mg PO HS 06/16/18 08/15/18 History ranitidine HCl 150 mg PO BID 06/16/18 08/15/18 History sennosides [senna] 2 tab PO HS 06/16/18 08/15/18 History sodium phosphates [Enema] 197 ml OR Q3D PRN 06/16/18 07/17/18 History clopidogrel [Plavix] 75 mg PO QAM 07/17/18 08/15/18 History levothyroxine 75 mcg PO QPM 07/17/18 07/17/18 History oxycodone 5 - 10 mg PO Q6H PRN #30 tab 08/17/18 Rx Patient History Medical History CKD (chronic kidney disease) Stage III Cellulitis of right hip Peripheral vascular disease stent in RLE. On ASA/Plavix Caio disease chronic steroid use HLD (hyperlipidemia) HTN (hypertension) Degenerative joint disease of right hip Blood clot in vein LEFT LEG (FEBRUARY 2018 S/P SURGERY) DX AT [facility] Diastolic dysfunction H/O deep venous thrombosis LLE Hypothyroidism Obesity Osteoarthritis Pituitary adenoma hx/o. 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 Surgical History History of colonoscopy History of esophagogastroduodenoscopy (EGD) History of hip surgery RT HIP (CLEANED OUT WITH SPACER) FEBRUARY 2018 03/17/18: MAC #3 with ETT #7.0 HiLo with Grade 1 View. Atraumatic with 1 attempt History of tooth extraction H/O total hip arthroplasty right PALMIRA H/O: hysterectomy Family History Sister Family history of diabetes mellitus Social History Preferred Language: Ukrainian Communication Ability: Effective Visual Impairment: Limited Ediscovery Project Manager Required: No Beliefs That Will Affect Care: None Current Living Situation: Custodial Current Living Situation Comment: [facility] Other Information That Helps Us Care for You: No Feels Safe at Home: Yes Safety Concerns: Feels Safe At This Time Smoking Status: Never smoker Do You Dip or Chew Tobacco: No Second Hand Exposure: Yes (IN THE PAST) Hx Alcohol Use: No Hx Substance Use: No Review of Systems Review of Systems: All systems reviewed & are unremarkable except as noted in HPI & below Physical Exam Constitutional: WD/WN, vitals as above Eyes: PERRL, conjunctivae normal, anicteric sclerae ENMT: external ear and nose normal, oropharynx normal Neck: normal visual inspection Respiratory: normal respiratory effort, lungs clear to auscultation Cardiovascular: RRR, no murmur, no edema Gastrointestinal (Abdomen): normal bowel sounds, soft, nontender, no hepatosplenomegaly Musculoskeletal: no cyanosis or clubbing, extremities motor strength 5/5 Skin: no rashes, warm and dry Results & Data Vital Signs (Past 12 Hours) Vital Signs Temp Pulse Resp BP Pulse Ox 08/18/18 07:18 36.6 C 69 18 125/68 95 08/18/18 06:06 36.5 C 72 16 170/72 H 92 Laboratory Results Microbiology 08/15/18 13:39 Hip,Right Gram Stain - Final 08/15/18 13:39 Hip,Right Deep Wound Culture - Final Coag negative Staphylococcus 08/15/18 13:39 Hip,Right Gram Stain - Final 08/15/18 13:39 Hip,Right Deep Wound Culture - Final Randi albicans 06/21/18 Unknown Urine,Clean Catch Urine Culture - Final Enterococcus faecium VRE Pseudomonas aeruginosa
[2018-08-18] MEDS ORDERED: FLUCONAZOLE 100 MG TAB PO ONE (15:00)
[2018-08-18] MEDS: PRAVASTATIN SOD 40 MG TAB PO SCH (20:51)
[2018-08-18] MEDS: SENNA 8.6 MG TAB PO SCH (20:51)
--- NOTE | 2018-08-18 20:54 | Operative Report ---
Post Operative Report Pre & Post Diagnosis Operation Date: 08/15/18 11:15 Pre-Op Diagnosis: Right Hip Osteoarthritis Post-Op Diagnosis: Right Hip Osteoarthritis Procedure Operation Date: 08/15/18 11:15 Actual Procedures p Right Hip Removal Antibiotic Spacer, Total Hip Revision Arthroplasty(Right) - Marcus Rhoades DO Surgeon Marcus Rhoades DO Crime Investigator Special Agent Adolfo Rhodes Estimated Blood Loss 450 Findings Consistent with Post-Op Diagnosis Specimens culture x 2 Drains hmv drain deep, hmv drain superficial Anesthesia Type General Complications none Disposition Disposition: Recovery Room Indications The patient is an 82-year-old female with chronic periprosthetic right total hip infection treated with previous I&D and head and liner exchange, chronic suppressive antibiotics, local wound care, explant of prosthesis and placement of antibiotic cement spacer on 03/17/19, completed prolonged course IV abx. Negative IA right hip aspiration including synovasure testing on 05/19/18 after antibiotic holiday. The patients surgery was delayed initially secondary to recurrent RLE cellulitis and recurrent UTI which was treated appropriately. The patient was cleared by PCP DR. Cho to proceed with revision R PALMIRA. s/p explant R PALMIRA, placement of antibiotic cement spacer, prolonged IV abx I have indicated the patient for removal of antibiotic cement spacer, revision right PALMIRA. The risks, complications, benefits of surgery were explained at length with the patient and family which include however not limited to infection, blood clots, acute blood loss, injury to surrounding nerves, bone, soft tissue, vessels, arthrofibrosis, chronic pain syndrome, hip dislocation and leg length discrepancy, failure of the prosthesis, revision surgeries, cardiac and pulmonary events and . The patient and family wished to proceed with surgical intervention at this time and informed consent was obtained. We will plan restarting patients Eliquis post-operatively for DVT prophylaxis. Upon discharge the patient will be discharged home with home health services vs SNF. Appropriate clearances by PCP and cardiology were obtained. Stress steroid dose will be given perioperatively Description of Procedure Following induction of adequate general anesthesia, the patient was transferred to the OR table and placed in lateral decubitus position with right hip down. The left hip was prepped and draped in the typical sterile fashion. A timeout was performed, patient identified, site monika confirmed. A posterolateral/Wendy-Langenbeck incision was made inline with the previous incision. Excision of previous scar was performed. Subcutaneous tissue was sharply dissected. Electrocautery and Aquamantys was utilized for hemostasis. The fascia was incised throughout the length of the wound and retracted with the Charnley retractor. The short external rotators and capsule were scared in and were divided from the posterior aspect of the femur using electrocautery. Both external rotators and posterior capsule were swept posterior and protected, along with protecting the sciatic nerve. A small amount of serosanguineous joint fluid was appreciated and two deep cultures of synovial fluid were obtained. Antibiotic cement spacer was identified and in good shape/position. Deep and superficial soft tissues were closely inspected, and found to be healthy appearing, clean, no evidence of infectious/inflammatory process. No sinus tracts or dora pus. Meticulous removal of intra-articular scar tissue was performed with bovie. The hip prosthesis was dislocated by flexion and internal rotation in a controlled manner. The femoral head was removed from the trunion. Next utilizing artisan chisel the cement collar was meticulously removed. Flexible osteotomes were inserted anterior/posterior and lateral to the stem. Next, the stem extraction device was placed and the stem was easily removed in it's entirety without loss of bone or fracture. Utilizing large curets, IM soft tissue and membrane was debrided and the canal was irrigated with copious amounts of sterile saline solution with bacitracin. Next, access was gained to the acetabulum. Meticulous removal of scar tissue surrounding the cup was performed. Once satisfied, utilizing artisan chisels, the polyetheline liner was dislodged from the cement mantle. Meticulous removal of remaining cement was performed without bone loss. A this time a thorough debridement of the deep and superficial soft tissue was performed with scalpel, Bovie, curets and Pierce elevator. Soft tissue planes were well defined. The hip joint was irrigated with copious amoutns of sterile saline with bacitracin. Access was once more gained to the acetabulum and sequential reaming was performed starting at 44mm and carried up to 51 mm and decision was made to proceed with impaction of a 52 mm G7 multihole osteoTi cup. This was impacted and held using three acetabular screws measuring 30mm, 25mm and 20mm. The trial 52/36 acetabular liner was inserted and locked into place at this time. Next, attention was turned back to the proximal femur. Distal reaming was performed by hand starting at 12 and carried up to a size 17 reaching a depth of 80mm measured from the tip of the greater trochanter. The trial distal stem was then left in place. Proximal reaming was then performed by hand starting at a size A and carried up to a size C. Next, a trial size 70 C body was inserted onto the distal stem and appropriate version obtained. A 36 +0 femoral head was placed onto the stem and a trial reduction was carried out. The hip was found to be stable in all degrees of rotation with hip flexion and extension with no impingement and leg lengths were equal. The hip was dislocated once more, trial components were removed and access to the acetabulum was re-established. The trial liner was removed and the cup was irrigated to ensure all debris was removed. A final 52/36 mm high wall acetabular liner was inserted and impacted into place. Access to the proximal femur was once more gained and the final [id number] distal stem, 70 C body with a lateralized neck was impacted into place. Care was taken to ensure appropriate version obtained. A trial 36+0 femoral head was placed and trial reduction was once more performed. The hip was found to be stable in all degrees of rotation with hip flexion and extension with no impingement and leg lengths were equal. The hip was dislocated once more, the neck was cleaned of all debris, a final 36+0 femoral head impacted into place and the hip was reduced. Range of motion was checked once again and found to be stable. The wound was copiously irrigated with sterile saline solution with bacitracin. Utilizing a mixture of 20cc of Betadine in 500cc of sterile saline solution the hip joint was soaked for 3 minutes. The hip was once again irrigated with copious amounts of sterile saline solution with bacitracin, 6L in total. The tiffany-incisional soft tissue was injected utilizing [place] ortho mix which includes a combination of Ropivicaine 0.5% 150mg, Bupivicaine 0.5%/Epinephrine 1:200,000 30ml, Toradol 30mg, Dexamethasone 4mg, Ketamine 10mg, Clonidine 100mcg and NSS 30ml solution. Hemovac drain was placed deep to the fascial layer. Deep tissues and fascia were closed using #1 Vicryl. A second hemavac drain was placed superficial to the fascial layer. Subcutaneous tissue was closed using 2-0 Vicryl, and skin was closed with herve. Sterile dressings were applied which included Prevena incisional vac. A abduction pillow was placed between the legs. The patient tolerated the procedure well and was transported to PACU in stable condition. Due to the complex nature of the procedure, the entire surgery was performed with the operational assistance of Adolfo Rhodes PA-C. The pharmacist assistant, under direct supervision, was involved in the actual performance of all aspects of the surgical procedure including patient positioning, hemostasis, tissue retraction, instrument management and wound closure. I attest to the content of the Intraoperative Record and any orders documented therein. Any exceptions are noted below.
[2018-08-19] MEDS: ACETAMINOPHEN 500 MG TAB PO SCH ×3 (06:07→21:34)
--- NOTE | 2018-08-19 06:32 | Orthopedic Progress Note ---
Date of Service August 19, 2018 Assessment & Plan (1) Infection of prosthetic total hip joint: POD #4: Per ID, will continue dapto, stop cipro, previous pseudomonas was quinolone resistant, add fluconazole due to C. albicans now growing. 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 will check blood cultures as well. States she plans to follow with ID in [place] post d/c as this is closer to home. will order blood cultures Patient does have a bed waiting for her at a skilled facility and plans will be hopefully to get her there this weekend. Plans will be to continue the Hemovac drain at this time until the drainage continues to slow down somewhat with the 1 Hemovac drain. Status post removal of antibiotic cement spacer, revision right total hip arthroplasty, excision of scar POD#2 -Postoperative antibiotics daptomycin and Cipro, continue until cultures negative -DVT prophylaxis : Teds/Eliquis, SCDs on operative extremity -Weight-bear as tolerated right lower extremity -Posterior hip precautions -PT/OT -Postoperative x-ray demonstrates a well aligned well fixed orthopedic prosthesis without evidence of fracture or dislocation -AM labs - hgb 7.6, will transfuse 1 unit -Monitor drain output #1 0 #2 50 -Medical hospitalist consult recs appreciated POD#1 -Postoperative antibiotics daptomycin and Cipro, continue until cultures negative -DVT prophylaxis : Teds/Eliquis, SCDs on operative extremity -Weight-bear as tolerated right lower extremity -Posterior hip precautions -PT/OT -Postoperative x-ray demonstrates a well aligned well fixed orthopedic prosthesis without evidence of fracture or dislocation -AM labs - hgb 7.3, will transfuse 2 units -Monitor drain output #1 25 #2 50 -Medical hospitalist consult recs appreciated Subjective POD #4 Right Hip Removal Antibiotic Spacer, Total Hip Revision Arthroplasty Review of Systems Constitutional: no fever, no chills and no sweats Respiratory: no cough and no dyspnea Cardiovascular: no chest pain Musculoskeletal: pain currently well controlled. denies calf pain, denies N/T Physical Exam Physical Exam: Vital Signs Temp Pulse Resp BP Pulse Ox 08/18/18 23:08 36.7 C 68 16 126/68 94 08/18/18 20:52 72 166/76 H 08/18/18 14:57 36.5 C 75 18 110/60 98 08/18/18 07:18 36.6 C 69 18 125/68 95 Intake and Output 08/18/18 08/18/18 08/19/18 14:59 22:59 06:59 Intake Total 110 / 360 250 / 360 Output Total 371 / 1606 275 / 1606 960 / 1606 Balance -261 / -1246 -25 / -1246 -960 / -1246 Intake: Oral 110 / 360 250 / 360 Output: Urine Amount (Ca theter) 350 / 1475 250 / 1475 875 / 1475 Powers/Indwelli ng 350 / 1475 250 / 1475 875 / 1475 Drain Output 21 / 131 25 / 131 85 / 131 Right Hip Hemo vac #1 0 11 Right Hip Hemo vac #2 20 / 120 25 / 120 75 / 120 Other: Weight 90 kg Patient Weight 08/19/18 06:59 Weight 90 kg Musculoskeletal: Prevena dressing is clean and dry. Her thigh is soft and she has some slight tenderness around the thigh. no erythema noted. Calves were soft, nontender. NVDI. Toes mobile. Leg lengths appear equal. Hemovac output is 10 and 75 / last shift Results & Data Vital Signs (Past 12 Hours) Vital Signs Temp Pulse Resp BP Pulse Ox 08/18/18 23:08 36.7 C 68 16 126/68 94 08/18/18 20:52 72 166/76 H Laboratory Results Laboratory Results WBC 12.94 K/uL (4.8-10.8) H 08/18/18 05:38 RBC 2.90 M/uL (4.2-5.4) L 08/18/18 05:38 Hgb 9.1 g/dL (12.0-16.0) L 08/18/18 05:38 Hct 26.3 % (37-47) L 08/18/18 05:38 MCV 90.7 fL (80-100) 08/18/18 05:38 MCH 31.4 pg (25-34) 08/18/18 05:38 MCHC 34.6 g/dL (32-36) 08/18/18 05:38 RDW Std Deviation 64.9 fL (36.4-46.3) H 08/18/18 05:38 RDW Coeff of Maria D 20.2 % (11.5-14.5) H 08/18/18 05:38 Plt Count 132 K/uL (130-400) 08/18/18 05:38 MPV 10.3 fL (7.4-10.4) 08/18/18 05:38 Immature Gran % (Auto) 5.6 % 08/18/18 05:38 Neut % (Auto) 66.1 % 08/18/18 05:38 Lymph % (Auto) 18.1 % 08/18/18 05:38 [place] % (Auto) 8.9 % 08/18/18 05:38 Eos % (Auto) 0.9 % 08/18/18 05:38 Baso % (Auto) 0.4 % 08/18/18 05:38 Immature Gran # (Auto) 0.73 K/uL (0.00-0.02) H 08/18/18 05:38 Neut # (Auto) 8.56 K/uL (1.4-6.5) H 08/18/18 05:38 Lymph # (Auto) 2.34 K/uL (1.2-3.4) 08/18/18 05:38 [place] # (Auto) 1.15 K/uL (0.11-0.59) H 08/18/18 05:38 Eos # (Auto) 0.11 K/uL (0-0.5) 08/18/18 05:38 Baso # (Auto) 0.05 K/uL (0-0.2) 08/18/18 05:38 Absolute Nucleated RBC 0.23 K/uL (0-0) H 08/18/18 05:38 Nucleated RBC % (auto) 1.7 % 08/18/18 05:38 Neutrophils % (Manual) 86.1 % 08/17/18 06:03 Lymphocytes % (Manual) 11.3 % 08/17/18 06:03 Monocytes % (Manual) 0.9 % 08/17/18 06:03 Eosinophils % (Manual) 2.0 % 06/21/18 11:41 Metamyelocytes % (Man) 1.7 % 08/16/18 05:31 Myelocytes % (Man) 1.7 % 08/17/18 06:03 Neutrophils # (Manual) 18.22 K/uL (1.4-6.5) H 08/17/18 06:03 Total Absolute Neuts 18.22 K/uL (1.4-6.5) H 08/17/18 06:03 Lymphocytes # (Manual) 2.39 K/uL (1.2-3.4) 08/17/18 06:03 Total Abs Lymphocytes 2.39 K/uL (1.2-3.4) 08/17/18 06:03 Monocytes # (Manual) 0.19 K/uL (0.11-0.59) 08/17/18 06:03 Eosinophils # (Manual) 0.38 K/uL (0-0.5) 06/21/18 11:41 Metamyelocytes # (Man) 0.61 K/uL (0-0) H 08/16/18 05:31 Myelocytes # (Manual) 0.36 K/uL (0-0) H 08/17/18 06:03 Hypogranular Neuts 1+ 06/21/18 11:41 Polychromasia 1+ 08/16/18 05:31 Anisocytosis Present 08/18/18 05:38 Echinocytes 1+ 08/17/18 06:03 PT 11.1 Seconds (9.0-12.0) 06/21/18 11:41 INR 1.1 (0.9-1.1) 06/21/18 11:41 APTT 27.9 Seconds (21.0-31.0) 06/21/18 11:41 PTT Ratio 1.0 06/21/18 11:41 Sodium 138 mmol/L (136-145) 08/18/18 05:38 Potassium 4.1 mmol/L (3.5-5.1) 08/18/18 05:38 Chloride 111 mmol/L (98-107) H 08/18/18 05:38 Carbon Dioxide 24 mmol/L (21-32) 08/18/18 05:38 Anion Gap 3.0 (3-11) 08/18/18 05:38 BUN 35 mg/dl (7-18) H 08/18/18 05:38 Creatinine 1.71 mg/dl (0.6-1.2) H D 08/18/18 05:38 Est Cr Clr Drug Dosing 27.7 ml/min 08/18/18 05:38 Est GFR ( Amer) 31.3 08/18/18 05:38 Est GFR (Non-Af Amer) 27.0 08/18/18 05:38 BUN/Creatinine Ratio 20.4 (10-20) H 08/18/18 05:38 Glucose 71 mg/dl (70-99) 08/18/18 05:38 POC Glucose 110 (70-99) H 08/17/18 16:59 Estimat Average Glucose 111 mg/dl 06/21/18 11:41 Hemoglobin A1c 5.5 % (4.5-5.6) 06/21/18 11:41 Calcium 8.1 mg/dl (8.5-10.1) L D 08/18/18 05:38 Albumin 2.8 gm/dl (3.4-5.0) L 06/21/18 11:41 Urine Color Yellow 06/21/18 Unknown Urine Appearance Clear (Clear) 06/21/18 Unknown Urine pH 5.0 (4.5-7.5) 06/21/18 Unknown Ur Specific [place] 1.012 (1.000-1.030) 06/21/18 Unknown Urine Protein Negative (Negative) 06/21/18 Unknown Urine Glucose (UA) Negative (Negative) 06/21/18 Unknown Urine Ketones Negative (Negative) 06/21/18 Unknown Urine Blood Negative (Negative) 06/21/18 Unknown Urine Nitrite Negative (Negative) 06/21/18 Unknown Urine Bilirubin Negative (Negative) 06/21/18 Unknown Urine Urobilinogen Negative (Negative) 06/21/18 Unknown Ur Leukocyte Esterase 2+ (Negative) H 06/21/18 Unknown Urine WBC (Auto) >30 /hpf (0-5) H 06/21/18 Unknown Urine RBC (Auto) 0-4 /hpf (0-4) 06/21/18 Unknown U Hyaline Cast (Auto) 1-5 /lpf (0-5) 06/21/18 Unknown U Epithel Cells (Auto) 0-5 /lpf (0-5) 06/21/18 Unknown Urine Bacteria (Auto) Negative (Negative) 06/21/18 Unknown Blood Type O Positive 08/15/18 09:57 Antibody Screen POSITIVE A 08/15/18 09:57 Antibody Identification Anti-K 08/15/18 09:57 Antigen Identification K Antigen - NEGATIVE 06/21/18 11:41 Direct Antiglob Test Negative (Negative) 08/15/18 09:57 GEORGIE (IgG-AHG) Neg (Negative) 08/15/18 09:57 GEORGIE, Polyspecific Neg (Negative) 08/15/18 09:57 GEORGIE C3b, C3d 5 Min Neg (Negative) 08/15/18 09:57 Crossmatch See Detail 08/15/18 09:57
[2018-08-19 06:39] LABS: Hematocrit (blood only) 27.7 % (37-47); Hemoglobin 9.2 g/dL (12.0-16.0); Mean Corpuscular Hgb Conc 33.2 g/dL (32-36); Mean Platelet Volume 10.3 fL (7.4-10.4); Nucleated RBC # (auto) 0.24 K/uL (0-0); Nucleated RBC % (auto) 2.2 %; Platelet Count 154 K/uL (130-400); RDW Coefficient of Variation 20.1 % (11.5-14.5); RDW Standard Deviation 66.4 fL (36.4-46.3); Red Blood Count 2.98 M/uL (4.2-5.4)
[2018-08-19 07:13] LABS: BUN Creatinine Ratio 19.1 (10-20); C Reactive Protein 6.3 mg/dl (0-0.29); Creatinine Clr Calc Pharmacy 35.1 ml/min; Est GFR (African American) 41.7; Potassium 3.9 mmol/L (3.5-5.1)
[2018-08-19 07:14] LABS: ALC (manual) 1.39 K/uL (1.2-3.4); Anisocytosis Present; Eosinophils # (manual) 0.18 K/uL (0-0.5); Eosinophils % (manual) 1.7 %; Lymphocytes # (manual) 1.39 K/uL (1.2-3.4); Metamyelocytes # (manual) 0.18 K/uL (0-0); Metamyelocytes % (manual) 1.7 %; Monocytes # (manual) 0.75 K/uL (0.11-0.59); Myelocytes # (manual) 0.46 K/uL (0-0); Myelocytes % (manual) 4.3 %; Neutrophils % (manual) 72.3 %; Polychromasia 1+
[2018-08-19] MEDS: MULTIVITAMIN TAB PO SCH (09:29)
[2018-08-19] MEDS: CARVEDILOL 3.125 MG TAB PO SCH ×2 (09:29→21:37)
[2018-08-19] MEDS: DOCUSATE SODIUM 100 MG CAP PO SCH ×2 (09:29→21:34)
[2018-08-19] MEDS: CALCIUM 600MG + VIT D 400 IU TAB PO SCH ×3 (09:29→21:33)
[2018-08-19] MEDS: FLUCONAZOLE 100 MG TAB PO SCH (09:30)
[2018-08-19] MEDS: APIXABAN 2.5 MG TAB PO SCH ×2 (09:30→21:34)
[2018-08-19] MEDS: OXYCODONE HCL IR 5 MG TAB (IMMEDIATE RELEASE) PO PRN ×2 (09:36→18:20)
--- NOTE | 2018-08-19 13:40 | Hospitalist Progress Note ---
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 albicans now growing. check blood cultures as well. surgeon has restarted eliquis 08/16/18 continue pain control per surgery (2) CKD (chronic kidney disease): ckd 3 with appropriate dose adjustments (3) ANDREW (acute kidney injury): Likely ATN due to hypotension postop. Creatinine peaked at 2.2 and is back at baseline which is around 1.4. Urine output has started to pick back up. Ok to remove Powers (4) Acute blood loss anemia: Hgb improved to 9.1 after 4 units total PRBCs post op and remained stable (5) [place] disease: Continue home cortef 30 mg bid. Discontinued stress dosing as blood pressures rebounded (6) HLD (hyperlipidemia): typically takes pravastatin (7) HTN (hypertension): Continue coreg with hold parameters. Restart furosemide (8) Hypocalcemia: Asymptomatic - improved with oral replacement Subjective Ms. Harrison is sleepy this morning but pleasant and conversant. No new complaints Review of Systems Review of Systems: All systems reviewed & are unremarkable except as noted in HPI & below Physical Exam Physical Exam: General: no distress Eyes: normal inspection, PERLL Respiratory: chest non tender, clear to auscultation, normal breath sounds, no respiratory distress, no accessory muscle use Cardiac: regular rate and rhythm, no rub or gallop, no murmur, trace edema le, no jvd GI/: active bowel sounds, no abd pain or tenderness, soft, non distended Extremities: normal range of motion, normal strength, non tender Neuro/Psych: alert and oriented x 3, normal mood and affect Skin: normal color, dry Results & Data Vital Signs (Past 12 Hours) Vital Signs Temp Pulse Resp BP Pulse Ox 08/19/18 09:28 94 H 159/76 H 08/19/18 07:57 36.6 C 65 17 161/76 H 94
[2018-08-19] MEDS: SENNA 8.6 MG TAB PO SCH (21:34)
[2018-08-19] MEDS: PRAVASTATIN SOD 40 MG TAB PO SCH (21:34)
[2018-08-20] MEDS ORDERED: MICONAZOLE NITRATE POWDER 43 GM EXT PRN (03:24)
[2018-08-20] MEDS: ACETAMINOPHEN 500 MG TAB PO SCH ×3 (05:52→22:12)
[2018-08-20 06:12] LABS: Hematocrit (blood only) 28.6 % (37-47); Hemoglobin 9.4 g/dL (12.0-16.0); Mean Corpuscular Hgb Conc 32.9 g/dL (32-36); Mean Corpuscular Volume 94.7 fL (80-100); Mean Platelet Volume 10.3 fL (7.4-10.4); Nucleated RBC # (auto) 0.09 K/uL (0-0); Nucleated RBC % (auto) 0.8 %; Platelet Count 182 K/uL (130-400); RDW Standard Deviation 65.3 fL (36.4-46.3); Red Blood Count 3.02 M/uL (4.2-5.4); White Blood Count 10.48 K/uL (4.8-10.8)
--- NOTE | 2018-08-20 06:22 | Orthopedic Progress Note ---
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 albicans now growing. 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 will check blood cultures as well. States she plans to follow with ID in [place] post d/c as this is closer to home. BLOOD CULTURES PENDING WILL D/C THE ONE HEMOVAC, LEAVE THE 2ND UNTIL TOMORROW. Status post removal of antibiotic cement spacer, revision right total hip arthroplasty, excision of scar POD#2 -Postoperative antibiotics daptomycin and Cipro, continue until cultures negative -DVT prophylaxis : Teds/Eliquis, SCDs on operative extremity -Weight-bear as tolerated right lower extremity -Posterior hip precautions -PT/OT -Postoperative x-ray demonstrates a well aligned well fixed orthopedic prosthesis without evidence of fracture or dislocation -AM labs - hgb 7.6, will transfuse 1 unit -Monitor drain output #1 0 #2 50 -Medical hospitalist consult recs appreciated POD#1 -Postoperative antibiotics daptomycin and Cipro, continue until cultures n egative -DVT prophylaxis : Teds/Eliquis, SCDs on operative extremity -Weight-bear as tolerated right lower extremity -Posterior hip precautions -PT/OT -Postoperative x-ray demonstrates a well aligned well fixed orthopedic prosthesis without evidence of fracture or dislocation -AM labs - hgb 7.3, will transfuse 2 units -Monitor drain output #1 25 #2 50 -Medical hospitalist consult recs appreciated Subjective POD #5 Right Hip Removal Antibiotic Spacer, Total Hip Revision Arthroplasty Review of Systems Respiratory: no cough and no dyspnea Cardiovascular: no chest pain, no dyspnea and no orthopnea Gastrointestinal: no nausea and no vomiting Physical Exam Physical Exam: Vital Signs Temp Pulse Resp BP Pulse Ox 08/19/18 23:28 36.6 C 73 17 146/76 H 93 08/19/18 21:36 73 159/82 H 08/19/18 15:55 98 08/19/18 15:42 36.6 C 73 16 156/69 H 95 08/19/18 09:28 94 H 159/76 H 08/19/18 07:57 36.6 C 65 17 161/76 H 94 Intake and Output 08/19/18 08/19/18 08/20/18 14:59 22:59 06:59 Intake Total 120 / 670 200 / 670 350 / 670 Output Total 635 / 1246 260 / 1246 351 / 1246 Balance -515 / -576 -60 / -576 -1 / -576 Intake: Oral 120 / 670 200 / 670 350 / 670 Output: Urine Amount (Ca theter) 550 / 1075 225 / 1075 300 / 1075 External 225 / 525 300 / 525 Powers/Indwelli ng 550 / 550 Drain Output 85 / 170 35 / 170 50 / 170 Right Hip Hemo vac #1 0 Right Hip Hemo vac #2 75 / 150 25 / 150 50 / 150 # Bowel Movement s Other: # Unmeasured Voi ds 1 Constitutional: WD/WN, vitals as above no acute distress Musculoskeletal: right hip: Prevena dressing is clean and dry, working appropriately. Her thigh is soft, mild tenderness anterior thigh. no erythema noted. Calves were soft, nontender. NVDI. Toes mobile. Leg lengths appear equal. Results & Data Vital Signs (Past 12 Hours) Vital Signs Temp Pulse Resp BP Pulse Ox 08/19/18 23:28 36.6 C 73 17 146/76 H 93 08/19/18 21:36 73 159/82 H Laboratory Results Laboratory Results WBC 10.48 K/uL (4.8-10.8) 08/20/18 05:43 RBC 3.02 M/uL (4.2-5.4) L 08/20/18 05:43 Hgb 9.4 g/dL (12.0-16.0) L 08/20/18 05:43 Hct 28.6 % (37-47) L 08/20/18 05:43 MCV 94.7 fL (80-100) 08/20/18 05:43 MCH 31.1 pg (25-34) 08/20/18 05:43 MCHC 32.9 g/dL (32-36) 08/20/18 05:43 RDW Std Deviation 65.3 fL (36.4-46.3) H 08/20/18 05:43 RDW Coeff of Maria D 20.0 % (11.5-14.5) H 08/20/18 05:43 Plt Count 182 K/uL (130-400) 08/20/18 05:43 MPV 10.3 fL (7.4-10.4) 08/20/18 05:43 Immature Gran % (Auto) 5.6 % 08/18/18 05:38 Neut % (Auto) 66.1 % 08/18/18 05:38 Lymph % (Auto) 18.1 % 08/18/18 05:38 [place] % (Auto) 8.9 % 08/18/18 05:38 Eos % (Auto) 0.9 % 08/18/18 05:38 Baso % (Auto) 0.4 % 08/18/18 05:38 Immature Gran # (Auto) 0.73 K/uL (0.00-0.02) H 08/18/18 05:38 Neut # (Auto) 8.56 K/uL (1.4-6.5) H 08/18/18 05:38 Lymph # (Auto) 2.34 K/uL (1.2-3.4) 08/18/18 05:38 [place] # (Auto) 1.15 K/uL (0.11-0.59) H 08/18/18 05:38 Eos # (Auto) 0.11 K/uL (0-0.5) 08/18/18 05:38 Baso # (Auto) 0.05 K/uL (0-0.2) 08/18/18 05:38 Absolute Nucleated RBC 0.09 K/uL (0-0) H 08/20/18 05:43 Nucleated RBC % (auto) 0.8 % 08/20/18 05:43 Neutrophils % (Manual) 72.3 % 08/19/18 06:08 Lymphocytes % (Manual) 13.0 % 08/19/18 06:08 Monocytes % (Manual) 7.0 % 08/19/18 06:08 Eosinophils % (Manual) 1.7 % 08/19/18 06:08 Metamyelocytes % (Man) 1.7 % 08/19/18 06:08 Myelocytes % (Man) 4.3 % 08/19/18 06:08 Neutrophils # (Manual) 7.74 K/uL (1.4-6.5) H 08/19/18 06:08 Total Absolute Neuts 7.74 K/uL (1.4-6.5) H 08/19/18 06:08 Lymphocytes # (Manual) 1.39 K/uL (1.2-3.4) 08/19/18 06:08 Total Abs Lymphocytes 1.39 K/uL (1.2-3.4) 08/19/18 06:08 Monocytes # (Manual) 0.75 K/uL (0.11-0.59) H 08/19/18 06:08 Eosinophils # (Manual) 0.18 K/uL (0-0.5) 08/19/18 06:08 Metamyelocytes # (Man) 0.18 K/uL (0-0) H 08/19/18 06:08 Myelocytes # (Manual) 0.46 K/uL (0-0) H 08/19/18 06:08 Hypogranular Neuts 1+ 06/21/18 11:41 Polychromasia 1+ 08/19/18 06:08 Anisocytosis Present 08/19/18 06:08 Echinocytes 1+ 08/17/18 06:03 ESR 15 mm/hr (0-21) 08/19/18 06:08 PT 11.1 Seconds (9.0-12.0) 06/21/18 11:41 INR 1.1 (0.9-1.1) 06/21/18 11:41 APTT 27.9 Seconds (21.0-31.0) 06/21/18 11:41 PTT Ratio 1.0 06/21/18 11:41 Sodium 140 mmol/L (136-145) 08/19/18 06:08 Potassium 3.9 mmol/L (3.5-5.1) 08/19/18 06:08 Chloride 112 mmol/L (98-107) H 08/19/18 06:08 Carbon Dioxide 24 mmol/L (21-32) 08/19/18 06:08 Anion Gap 5.0 (3-11) 08/19/18 06:08 BUN 26 mg/dl (7-18) H 08/19/18 06:08 Creatinine 1.35 mg/dl (0.6-1.2) H D 08/19/18 06:08 Est Cr Clr Drug Dosing 35.1 ml/min 08/19/18 06:08 Est GFR ( Amer) 41.7 08/19/18 06:08 Est GFR (Non-Af Amer) 36.0 08/19/18 06:08 BUN/Creatinine Ratio 19.1 (10-20) 08/19/18 06:08 Glucose 73 mg/dl (70-99) 08/19/18 06:08 POC Glucose 110 (70-99) H 08/17/18 16:59 Estimat Average Glucose 111 mg/dl 06/21/18 11:41 Hemoglobin A1c 5.5 % (4.5-5.6) 06/21/18 11:41 Calcium 9.0 mg/dl (8.5-10.1) 08/19/18 06:08 C-Reactive Protein 6.30 mg/dl (0-0.29) H 08/19/18 06:08 Albumin 2.8 gm/dl (3.4-5.0) L 06/21/18 11:41 Urine Color Yellow 06/21/18 Unknown Urine Appearance Clear (Clear) 06/21/18 Unknown Urine pH 5.0 (4.5-7.5) 06/21/18 Unknown Ur Specific [place] 1.012 (1.000-1.030) 06/21/18 Unknown Urine Protein Negative (Negative) 06/21/18 Unknown Urine Glucose (UA) Negative (Negative) 06/21/18 Unknown Urine Ketones Negative (Negative) 06/21/18 Unknown Urine Blood Negative (Negative) 06/21/18 Unknown Urine Nitrite Negative (Negative) 06/21/18 Unknown Urine Bilirubin Negative (Negative) 06/21/18 Unknown Urine Urobilinogen Negative (Negative) 06/21/18 Unknown Ur Leukocyte Esterase 2+ (Negative) H 06/21/18 Unknown Urine WBC (Auto) >30 /hpf (0-5) H 06/21/18 Unknown Urine RBC (Auto) 0-4 /hpf (0-4) 06/21/18 Unknown U Hyaline Cast (Auto) 1-5 /lpf (0-5) 06/21/18 Unknown U Epithel Cells (Auto) 0-5 /lpf (0-5) 06/21/18 Unknown Urine Bacteria (Auto) Negative (Negative) 06/21/18 Unknown Blood Type O Positive 08/15/18 09:57 Antibody Screen POSITIVE A 08/15/18 09:57 Antibody Identification Anti-K 08/15/18 09:57 Antigen Identification K Antigen - NEGATIVE 06/21/18 11:41 Direct Antiglob Test Negative (Negative) 08/15/18 09:57 GEORGIE (IgG-AHG) Neg (Negative) 08/15/18 09:57 GEORGIE, Polyspecific Neg (Negative) 08/15/18 09:57 GEORGIE C3b, C3d 5 Min Neg (Negative) 08/15/18 09:57 Crossmatch See Detail 08/15/18 09:57 08/19/18 10:24 Blood Culture - Pending Blood 08/19/18 06:41 Blood Culture - Pending Blood 08/15/18 13:39 Gram Stain - Final Hip,Right Deep Wound Culture - Final Coag negative Staphylococcus 08/15/18 13:39 Gram Stain - Final Hip,Right Deep Wound Culture - Final Randi albicans 06/21/18 Unknown Urine Culture - Final Urine,Clean Catch Enterococcus faecium VRE Pseudomonas aeruginosa
[2018-08-20 06:33] LABS: ALC (manual) 1.67 K/uL (1.2-3.4); Eosinophils # (manual) 0.28 K/uL (0-0.5); Eosinophils % (manual) 2.7 %; Lymphocytes # (manual) 1.67 K/uL (1.2-3.4); Lymphocytes % (manual) 15.9 %; Metamyelocytes # (manual) 0.09 K/uL (0-0); Metamyelocytes % (manual) 0.9 %; Monocytes # (manual) 0.28 K/uL (0.11-0.59); Monocytes % (manual) 2.7 %; Myelocytes # (manual) 0.28 K/uL (0-0); Myelocytes % (manual) 2.7 %; Neutrophils % (manual) 75.1 %
[2018-08-20 06:52] LABS: BUN Creatinine Ratio 18.7 (10-20); Calcium 8.9 mg/dl (8.5-10.1); Creatinine Clr Calc Pharmacy 41.9 ml/min; Est GFR (African American) 51.7; Est GFR (Non-African American) 44.6; Potassium 3.9 mmol/L (3.5-5.1)
[2018-08-20] MEDS: DOCUSATE SODIUM 100 MG CAP PO SCH ×2 (09:07→22:12)
[2018-08-20] MEDS: MULTIVITAMIN TAB PO SCH (09:07)
[2018-08-20] MEDS: CALCIUM 600MG + VIT D 400 IU TAB PO SCH ×3 (09:07→22:11)
[2018-08-20] MEDS: FUROSEMIDE 40 MG TAB PO SCH (09:08)
[2018-08-20] MEDS: FLUCONAZOLE 100 MG TAB PO SCH (09:08)
[2018-08-20] MEDS: CARVEDILOL 3.125 MG TAB PO SCH ×2 (09:08→22:12)
[2018-08-20] MEDS: APIXABAN 2.5 MG TAB PO SCH ×2 (09:09→22:11)
[2018-08-20] MEDS: DAPTOmycin 350 MG in SYRINGE 0 ML IV SCH (09:16)
--- NOTE | 2018-08-20 11:12 | Hospitalist Progress Note ---
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 albicans now growing. BC pending surgeon has restarted eliquis 08/16/18 continue pain control per surgery (2) CKD (chronic kidney disease): ckd 3 with appropriate dose adjustments (3) ANDREW (acute kidney injury): Likely ATN due to hypotension postop. Creatinine peaked at 2.2 and is back at baseline which is around 1.4. Good UO (4) Acute blood loss anemia: Hgb improved to 9.1 after 4 units total PRBCs post op and remained stable (5) [place] disease: Continue home cortef 30 mg bid. Discontinued stress dosing as blood pressures rebounded (6) HLD (hyperlipidemia): typically takes pravastatin (7) HTN (hypertension): Continue coreg with hold parameters. Restart furosemide - patient has bilateral le edema which she states is why she takes the lasix. She denies history of CHF and does not appear to be in failure. Hopefully restarting her lasix will reduce the swelling. Keep legs elevated as much as possible. (8) Hypocalcemia: Asymptomatic - improved with oral replacement Subjective Ms. Harrison continues to improve. She does not have much of an appetite and her hip hurts with movement. Review of Systems Review of Systems: All systems reviewed & are unremarkable except as noted in HPI & below Physical Exam Physical Exam: General: no distress Eyes: normal inspection, PERLL Respiratory: chest non tender, clear to auscultation, normal breath sounds, no respiratory distress, no accessory muscle use Cardiac: regular rate and rhythm, no rub or gallop, no murmur, +2 bilateral le edema, no jvd GI/: active bowel sounds, no abd pain or tenderness, soft, non distended Extremities: normal range of motion, normal strength, non tender Neuro/Psych: alert and oriented x 3, normal mood and affect Skin: normal color, dry Results & Data Vital Signs (Past 12 Hours) Vital Signs Temp Pulse Resp BP Pulse Ox 08/20/18 07:43 36.3 C L 68 18 159/87 H 95 08/19/18 23:28 36.6 C 73 17 146/76 H 93
[2018-08-20] MEDS: SENNA 8.6 MG TAB PO SCH (22:11)
[2018-08-20] MEDS: PRAVASTATIN SOD 40 MG TAB PO SCH (22:12)
[2018-08-20] MEDS: OXYCODONE HCL IR 5 MG TAB (IMMEDIATE RELEASE) PO PRN (23:41)
[2018-08-21 06:20] LABS: Hematocrit (blood only) 31.6 % (37-47); Hemoglobin 10.3 g/dL (12.0-16.0); Mean Corpuscular Hgb Conc 32.6 g/dL (32-36); Mean Corpuscular Volume 94.3 fL (80-100); Mean Platelet Volume 10.5 fL (7.4-10.4); Nucleated RBC # (auto) 0.09 K/uL (0-0); Nucleated RBC % (auto) 0.8 %; Platelet Count 202 K/uL (130-400); RDW Coefficient of Variation 20.2 % (11.5-14.5); RDW Standard Deviation 65.1 fL (36.4-46.3); Red Blood Count 3.35 M/uL (4.2-5.4)
[2018-08-21] MEDS: ACETAMINOPHEN 500 MG TAB PO SCH ×3 (06:29→20:41)
[2018-08-21 07:02] LABS: BUN Creatinine Ratio 14.4 (10-20); Calcium 8.9 mg/dl (8.5-10.1); Creatinine Clr Calc Pharmacy 39.8 ml/min; Est GFR (African American) 48.5; Est GFR (Non-African American) 41.9; Potassium 3.6 mmol/L (3.5-5.1)
[2018-08-21 07:06] LABS: ALC (manual) 1.88 K/uL (1.2-3.4); Anisocytosis Present; Eosinophils # (manual) 0.18 K/uL (0-0.5); Eosinophils % (manual) 1.7 %; Lymphocytes # (manual) 1.88 K/uL (1.2-3.4); Lymphocytes % (manual) 17.4 %; Metamyelocytes % (manual) 0.9 %; Monocytes # (manual) 0.56 K/uL (0.11-0.59); Monocytes % (manual) 5.2 %; Myelocytes % (manual) 0.9 %; Neutrophils % (manual) 73.9 %
[2018-08-21] MEDS: FUROSEMIDE 40 MG TAB PO SCH (09:04)
[2018-08-21] MEDS: CALCIUM 600MG + VIT D 400 IU TAB PO SCH ×3 (09:04→20:42)
[2018-08-21] MEDS: APIXABAN 2.5 MG TAB PO SCH ×2 (09:05→20:42)
[2018-08-21] MEDS: CARVEDILOL 3.125 MG TAB PO SCH ×2 (09:05→20:40)
[2018-08-21] MEDS: FLUCONAZOLE 100 MG TAB PO SCH (09:05)
[2018-08-21] MEDS: DOCUSATE SODIUM 100 MG CAP PO SCH ×2 (09:05→20:41)
[2018-08-21] MEDS: MULTIVITAMIN TAB PO SCH (09:05)
[2018-08-21] MEDS: OXYCODONE HCL IR 5 MG TAB (IMMEDIATE RELEASE) PO PRN ×2 (09:06→23:46)
[2018-08-21] MEDS: DAPTOmycin 350 MG in SYRINGE 0 ML IV SCH (09:06)
--- NOTE | 2018-08-21 11:13 | Infectious Disease Progress Nt ---
Date of Service August 21, 2018 Assessment & Plan (1) Post op infection: will continue dapto, fluconazole due to C. albicans now growing. 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 blood cultures remain negative. States she plans to follow with ID in [place] post d/c as this is closer to home. would suggest weekly cbc, cmp, esr, cpk while on abx. Subjective remains on Dapto and fluconazole. toelrating well. Blood cultures remain negative, wbc 10, ESR 15.afebrile. getting bathed during rounds. Results & Data Vital Signs (Past 12 Hours) Vital Signs Temp Pulse Resp BP Pulse Ox 08/21/18 07:55 36.5 C 76 20 113/67 96 Laboratory Results Microbiology 08/19/18 10:24 Blood Blood Culture - Preliminary No growth to date. 08/19/18 06:41 Blood Blood Culture - Preliminary No growth to date. 08/15/18 13:39 Hip,Right Gram Stain - Final 08/15/18 13:39 Hip,Right Deep Wound Culture - Final Coag negative Staphylococcus 08/15/18 13:39 Hip,Right Gram Stain - Final 08/15/18 13:39 Hip,Right Deep Wound Culture - Final Randi albicans 06/21/18 Unknown Urine,Clean Catch Urine Culture - Final Enterococcus faecium VRE Pseudomonas aeruginosa
--- NOTE | 2018-08-21 15:47 | Orthopedic Progress Note ---
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 albicans now growing. unclear significance of rare INTERNIST but with new hip and wbc as high as 35 on admission, she would benefit from IV abx. will check blood cultures as well. States she plans to follow with ID in [place] post d/c as this is closer to home. -DVT ppx - home eliquis restarted, renally dosed -WBAT RLE -Posterior hip precautions -PT/OT -medical consultation - recs appreciated -Monitor drain output - 50cc shift -DC planning - SNF Status post removal of antibiotic cement spacer, revision right total hip arthroplasty, excision of scar POD#2 -Postoperative antibiotics daptomycin and Cipro, continue until cultures negative -DVT prophylaxis : Teds/Eliquis, SCDs on operative extremity -Weight-bear as tolerated right lower extremity -Posterior hip precautions -PT/OT -Postoperative x-ray demonstrates a well aligned well fixed orthopedic prosthesis without evidence of fracture or dislocation -AM labs - hgb 7.6, will transfuse 1 unit -Monitor drain output #1 0 #2 50 -Medical hospitalist consult recs appreciated POD#1 -Postoperative antibiotics daptomycin and Cipro, continue until cultures negative -DVT prophylaxis : Teds/Eliquis, SCDs on operative extremity -Weight-bear as tolerated right lower extremity -Posterior hip precautions -PT/OT -Postoperative x-ray demonstrates a well aligned well fixed orthopedic prosthesis without evidence of fracture or dislocation -AM labs - hgb 7.3, will transfuse 2 units -Monitor drain output #1 25 #2 50 -Medical hospitalist consult recs appreciated Subjective Post Operative Progress Note Patient seen sitting up in bed, comfortable, denies complaints, pain well controlled, no acute issues. Review of Systems Review of Systems: All systems reviewed & are unremarkable except as noted in HPI & below Constitutional: as per Subjective / HPI Physical Exam Physical Exam: RLE NVSI +EHL/FHL/TA/GS SILT grossly, +2 DP pulse, compartments soft NT, dressing cdi. Constitutional: WD/WN, vitals as above Results & Data Vital Signs (Past 12 Hours) Vital Signs Temp Pulse Resp BP Pulse Ox 08/21/18 15:13 36.3 C L 82 18 106/68 95 08/21/18 07:55 36.5 C 76 20 113/67 96
[2018-08-21] MEDS ORDERED: HYDROCORTISONE 10 MG TAB PO ONE (16:30)
[2018-08-21] MEDS: SENNA 8.6 MG TAB PO SCH (20:43)
[2018-08-21] MEDS: HYDROCORTISONE 10 MG TAB PO SCH (20:44)
--- NOTE | 2018-08-21 21:27 | Hospitalist Progress Note ---
Date of Service August 21, 2018 Assessment & Plan (1) Infection of prosthetic total hip joint: - Multiple surgeries and treatments for R hip; S/P Antibiotic Spacer Removal and Revision Arthroplasty on 08/15 - Hip Cx with Pseudomonas initially and now with coag neg staph and jefferson - Currently on Daptomycin IV and Fluconazole with complete duration to be determined -- Initially treated with Cipro; Also noted to have recent VRE UTI - Recommend weekly CBC, CMP, ESR/CRP, CK while on Daptomycin therapy - Continue Eliquis 2.5 mg BID for DVT prophylaxis - Continues with pain and concern for over sedation - can continue to re- evaluate a better option - Surgical management per primary team - did discuss with Dr. Rhoades today with patient and family (2) ANDREW (acute kidney injury): - Likely ATN related to hypotensive state post-operative; this is supe rimposed on CKD Stage III - Cr peaked at 2.2 and has since normalized at 1.19 with continued good urine output - Continue to monitor; home Lasix has been resumed for lower extremity edema and therefore will need to be mindful of renal function Present on Admission?: Yes (3) Acute blood loss anemia: - Hgb currently stable at 10.3; required 4 units PRBC post-operatively - Continue to monitor Present on Admission?: Yes (4) [place] disease: - Initially treated with stress dose steroids pre- and post-operatively and continued while hypotensive - Patient complaining of symptoms today that is common with changes in her cortisone level and also having some lower BSGs; lower BPs today compared to yesterday - There was a lag in resuming home Cortef 30 mg BID. Gave dose today and resumed this BID. Could consider further stress dosing however her symptoms should likely rebound quickly with home medication continuation - Will check AM Cortisol; Last TSH was low with normal T4 and will repeat in AM as well but could be skewed due to infection Present on Admission?: Yes (5) HLD (hyperlipidemia): - Stop Pravastatin while on Daptomycin to reduce risk of myopathy; Check CK in AM given pain control issue Present on Admission?: Yes (6) HTN (hypertension): - Coreg 3.125 mg BID; Lasix 40 mg daily was resumed for edema and will monitor given previous ANDREW/monitor BP Supervising Physician Co-Signing Physician Notes PA Supervision Note: I did not personally see or examine the patient today, but I verified all arora points of GABE Rojas's assessment and plan with the following exceptions/additions: None Subjective Patient reports some increased pain in the hip today. Also endorses loss of appetite and increased fatigue. Also reporting feeling somewhat sick to the stomach but no vomiting Discussed with daughter at bedside who states this is common when her cortisol levels change. Will order an AM Cortisol to further assess. Currently on Daptomycin and Fluconazole with length of treatment to be determined. Planning on rehab at Review of Systems Constitutional: + fatigue, + weakness and + anorexia; no fever and no chills Respiratory: no cough and no dyspnea Cardiovascular: + edema; no chest pain, no palpitations and no lightheadedness Gastrointestinal: no abdominal pain, no nausea, no vomiting, no constipation and no diarrhea/loose stools Genitourinary: no dysuria Musculoskeletal: + joint pain (Right Hip) and + muscle weakness Integumentary: no rash Endocrine: + fatigue Physical Exam Constitutional: no acute distress and not ill appearing Eyes: + anicteric sclerae ENMT: Ears: no hearing impairment Neck: normal visual inspection and trachea midline Respiratory: normal respiratory effort, lungs clear to auscultation Cardiovascular: Rate/Rhythm: regular rate and regular rhythm Gastrointestinal (Abdomen): Inspection/Auscultation: normal bowel sounds Percussion/Palpation: abdomen soft; abdomen nontender Musculoskeletal: Head/Neck/Chest: normocephalic and head atraumatic Skin: no rashes, warm and dry Neurologic: moves all extremities Psychiatric: Orientation: alert Affect: + flat affect Results & Data Vital Signs (Past 12 Hours) Vital Signs Temp Pulse Resp BP Pulse Ox 08/21/18 15:13 36.3 C L 82 18 106/68 95
[2018-08-21] MEDS: PRAVASTATIN SOD 40 MG TAB PO SCH (23:53)
[2018-08-22] MEDS: ACETAMINOPHEN 500 MG TAB PO SCH ×2 (05:40→14:22)
[2018-08-22] MEDS: OXYCODONE HCL IR 5 MG TAB (IMMEDIATE RELEASE) PO PRN ×3 (05:44→16:56)
[2018-08-22 08:30] LABS: Hematocrit (blood only) 28.5 % (37-47); Hemoglobin 9.4 g/dL (12.0-16.0); Mean Corpuscular Volume 94.4 fL (80-100); Mean Platelet Volume 10.1 fL (7.4-10.4); Nucleated RBC # (auto) 0.07 K/uL (0-0); Nucleated RBC % (auto) 0.7 %; Platelet Count 212 K/uL (130-400); RDW Coefficient of Variation 19.8 % (11.5-14.5); RDW Standard Deviation 63.7 fL (36.4-46.3); Red Blood Count 3.02 M/uL (4.2-5.4); White Blood Count 10.19 K/uL (4.8-10.8)
[2018-08-22 09:00] LABS: BUN Creatinine Ratio 12.9 (10-20); Calcium 8.6 mg/dl (8.5-10.1); Creatinine Clr Calc Pharmacy 33.1 ml/min; Est GFR (African American) 38.9; Est GFR (Non-African American) 33.5
[2018-08-22] MEDS: DOCUSATE SODIUM 100 MG CAP PO SCH (09:21)
[2018-08-22] MEDS: DAPTOmycin 350 MG in SYRINGE 0 ML IV SCH (09:21)
[2018-08-22 09:22] LABS: T4 Free Thyroxine 0.28 ng/dl (0.8-1.6)
[2018-08-22] MEDS: HYDROCORTISONE 10 MG TAB PO SCH (09:22)
[2018-08-22] MEDS: MULTIVITAMIN TAB PO SCH (09:22)
[2018-08-22] MEDS: APIXABAN 2.5 MG TAB PO SCH (09:22)
[2018-08-22] MEDS: CARVEDILOL 3.125 MG TAB PO SCH (09:22)
[2018-08-22] MEDS: CALCIUM 600MG + VIT D 400 IU TAB PO SCH ×2 (09:23→14:22)
[2018-08-22] MEDS: FUROSEMIDE 40 MG TAB PO SCH (09:23)
[2018-08-22] MEDS: FLUCONAZOLE 100 MG TAB PO SCH (09:23)
[2018-08-22 09:24] LABS: ALC (manual) 1.24 K/uL (1.2-3.4); Eosinophils # (manual) 0.09 K/uL (0-0.5); Eosinophils % (manual) 0.9 %; Lymphocytes # (manual) 1.24 K/uL (1.2-3.4); Lymphocytes % (manual) 12.2 %; Metamyelocytes # (manual) 0.44 K/uL (0-0); Metamyelocytes % (manual) 4.3 %; Monocytes # (manual) 0.26 K/uL (0.11-0.59); Monocytes % (manual) 2.6 %; Myelocytes # (manual) 0.09 K/uL (0-0); Myelocytes % (manual) 0.9 %; Neutrophils % (manual) 79.1 %; Polychromasia 1+
--- NOTE | 2018-08-22 09:56 | Orthopedic Progress Note ---
Date of Service August 22, 2018 Assessment & Plan (1) Infection of prosthetic total hip joint: POD #7: S/P removal of antibiotic spacer, revision right [place], excision of scar, + IO cultures for [employer] and canida -Per ID, will continue dapto, stop cipro, previous pseudomonas was quinolone resistant, add fluconazole due to C. albicans now growing. unclear significance of rare [employer] but with new hip and wbc as high as 35 on admission, she would benefit from IV abx. will check blood cultures as well. States she plans to follow with ID in [place] post d/c as this is closer to home. -DVT ppx - home eliquis restarted, renally dosed -WBAT RLE -Posterior hip precautions -PT/OT -medical consultation - recs appreciated -ANDREW, near baseline, encouraged fluids/PO, meds renally dosed -[facility] DC'd -DC planning - SNF Status post removal of antibiotic cement spacer, revision right total hip arthroplasty, excision of scar POD#2 -Postoperative antibiotics daptomycin and Cipro, continue until cultures negative -DVT prophylaxis : Teds/Eliquis, SCDs on operative extremity -Weight-bear as tolerated right lower extremity -Posterior hip precautions -PT/OT -Postoperative x-ray demonstrates a well aligned well fixed orthopedic prosthesis without evidence of fracture or dislocation -AM labs - hgb 7.6, will transfuse 1 unit -Monitor drain output #1 0 #2 50 -Medical hospitalist consult recs appreciated POD#1 -Postoperative antibiotics daptomycin and Cipro, continue until cultures neg ative -DVT prophylaxis : Teds/Eliquis, SCDs on operative extremity -Weight-bear as tolerated right lower extremity -Posterior hip precautions -PT/OT -Postoperative x-ray demonstrates a well aligned well fixed orthopedic prosthesis without evidence of fracture or dislocation -AM labs - hgb 7.3, will transfuse 2 units -Monitor drain output #1 25 #2 50 -Medical hospitalist consult recs appreciated Subjective Post Operative Progress Note Patient seen sitting up in bed, comfortable, denies complaints, pain well controlled, no acute issues. Feeling better today. Review of Systems Review of Systems: All systems reviewed & are unremarkable except as noted in HPI & below Constitutional: as per Subjective / HPI Physical Exam Physical Exam: RLE NVSI +EHL/FHL/TA/GS SILT grossly, +2 DP pulse, compartments soft NT, dressing cdi. Results & Data Vital Signs (Past 12 Hours) Vital Signs Temp Pulse Resp BP Pulse Ox 08/22/18 07:52 36.7 C 66 15 126/72 94 08/21/18 23:35 36.7 C 70 16 146/84 H 93
--- NOTE | 2018-08-22 15:26 | Hospitalist Progress Note ---
Date of Service August 22, 2018 Assessment & Plan (1) Infection of prosthetic total hip joint: - Multiple surgeries and treatments for R hip; S/p Antibiotic Spacer Removal and Revision Arthroplasty on 08/15 - Hip culture +Staph coag neg and Randi albicans - will continue Daptomycin and Fluconazole for 4-6 week course. - Will need weekly CBC, CMP, ESR/CRP, CK while on Daptomycin therapy. - Will need to follow up with ID in [place] to determine treatment course. - Continue Eliquis 2.5 mg BID for DVT prophylaxis - Surgical management per primary team. (2) ANDREW (acute kidney injury): - Likely ATN related to hypotensive state post-operative. - Cr peaked at 2.2 then trended down. Slight rise in creatinine to 1.43 over last 24 hours. - Will need close lab monitoring in setting of Lasix. (3) Stage III chronic kidney disease: - Renally dose all meds. (4) Acute blood loss anemia: - Hgb currently stable ~9-10. - Continue to monitor. (5) [place] disease: - Initially treated with stress dose steroids pre- and post-operatively; home Cortef was not resumed following completion of stress dose steroids. - Cortef 30 mg BID resumed on 08/21/18; will need to continue at this dose. - BP has been stable, AM hypoglycemia now improved. - TSH was low at 0.157, Free T4 was 0.28 (not accurate in setting of acute illness) (6) HLD (hyperlipidemia): - Holding Pravastatin while on Daptomycin to reduce risk of myopathy; CK level was low. (7) HTN (hypertension): - Coreg 3.125 mg BID; Lasix 40 mg daily was resumed (monitor renal function closely) Dispo: Pt. is medically stable for discharge, will sign off. Supervising Physician Co-Signing Physician Notes PA Supervision Note: I did not personally see or examine the patient today, but I verified all arora points of GABE Santos's assessment and plan with the following exceptions/additions: None Subjective Pt is doing well overall. Has mild hip pain. Denies SOB, chest pain, N/V, diarrhea. Review of Systems Review of Systems: All systems reviewed & are unremarkable except as noted in HPI & below Constitutional: no fever, no chills, no fatigue, no weakness and no anorexia Respiratory: no cough, no dyspnea, no dyspnea on exertion and no wheezing Cardiovascular: no chest pain, no palpitations and no edema Gastrointestinal: no abdominal pain, no nausea, no vomiting, no constipation and no diarrhea/loose stools Genitourinary: no difficulty urinating Musculoskeletal: + joint pain (Hip pain); no back pain Integumentary: no non-healing lesions Allergy / Immunological: no rash Physical Exam Physical Exam: General: Resting comfortably in no apparent distress; A&OX3 HEENT: NC/AT; PERRLA with EOMI; Novice conjunctiva, MMM. No erythema of posterior pharynx Neck: Supple and nontender Cardiac: RRR w/o murmurs, gallops or rubs Lungs: CTA bilaterally; No rhonchi, wheezing, or rales Abdomen: Bowel normoactive X 4; Nontender to palpation Extremities: Warm. No edema present Neuro: No focal weakness Skin: No rash Results & Data Vital Signs (Past 12 Hours) Vital Signs Temp Pulse Resp BP Pulse Ox 08/22/18 11:04 36.7 C 66 15 126/72 94 08/22/18 07:52 36.7 C 66 15 126/72 94 Laboratory Results 08/22/18 08/22/18 08/22/18 Range/Units 08:14 08:14 08:14 WBC 10.19 (4.8-10.8) K/uL RBC 3.02 L (4.2-5.4) M/uL Hgb 9.4 L (12.0-16.0) g/dL Hct 28.5 L (37-47) % MCV 94.4 (80-100) fL MCH 31.1 (25-34) pg MCHC 33.0 (32-36) g/dL RDW Std Deviation 63.7 H (36.4-46.3) fL RDW Coeff of Maria D 19.8 H (11.5-14.5) % Plt Count 212 (130-400) K/uL MPV 10.1 (7.4-10.4) fL Absolute Nucleated RBC 0.07 H (0-0) K/uL Nucleated RBC % (auto) 0.7 % Neutrophils % (Manual) 79.1 % Lymphocytes % (Manual) 12.2 % Monocytes % (Manual) 2.6 % Eosinophils % (Manual) 0.9 % Metamyelocytes % (Man) 4.3 % Myelocytes % (Man) 0.9 % Neutrophils # (Manual) 8.06 H (1.4-6.5) K/uL Total Absolute Neuts 8.06 H (1.4-6.5) K/uL Lymphocytes # (Manual) 1.24 (1.2-3.4) K/uL Total Abs Lymphocytes 1.24 (1.2-3.4) K/uL Monocytes # (Manual) 0.26 (0.11-0.59) K/uL Eosinophils # (Manual) 0.09 (0-0.5) K/uL Metamyelocytes # (Man) 0.44 H (0-0) K/uL Myelocytes # (Manual) 0.09 H (0-0) K/uL Polychromasia 1+ Sodium 138 (136-145) mmol/L Potassium 4.0 (3.5-5.1) mmol/L Chloride 104 (98-107) mmol/L Carbon Dioxide 25 (21-32) mmol/L Anion Gap 9.0 (3-11) BUN 18 (7-18) mg/dl Creatinine 1.43 H (0.6-1.2) mg/dl Est Cr Clr Drug Dosing 33.1 ml/min Est GFR ( Amer) 38.9 Est GFR (Non-Af Amer) 33.5 BUN/Creatinine Ratio 12.9 (10-20) Glucose 85 (70-99) mg/dl Calcium 8.6 (8.5-10.1) mg/dl Total Creatine Kinase 19 L (26-192) U/L TSH 0.157 L (0.300-4.500) uIu/ml Free T4 0.28 L (0.8-1.6) ng/dl Cortisol AM Sample 17.99 (4.3-22.4) mcg/dl
--- NOTE | 2018-08-26 14:43 | Discharge Summary ---
Date of Service August 26, 2018 Admission HPI Per Admitting Provider The patient is an 82-year-old female with chronic periprosthetic right total hip infection treated with previous I&D and head and liner exchange, chronic suppressive antibiotics, local wound care, explant of prosthesis and placement of antibiotic cement spacer on 03/17/19, completed prolonged course IV abx. Negative IA right hip aspiration and synovasure after antibiotic holiday for greater than 2 weeks. The patients surgery was delayed secondary to recurrent RLE cellulitis. The patient was cleared by your PCP DR. Cho to proceed with revision R [place]. Principal Diagnosis Explant of antibiotic spacer, revision right total hip replacement, excision of incisional scar Discharge Exam RLE NVSI +EHL/FHL/TA/GS SILT grossly, +2 DP pulse, compartments soft NT, dressing cdi. Constitutional WD/WN, vitals as above Eyes PERRL, conjunctivae normal, anicteric sclerae ENMT external ear and nose normal, oropharynx normal Neck trachea midline, no thyromegaly Respiratory normal respiratory effort, lungs clear to auscultation Cardiovascular RRR, no murmur, no edema Gastrointestinal (Abdomen) normal bowel sounds, soft, nontender, no hepatosplenomegaly Musculoskeletal no cyanosis or clubbing, extremities motor strength 5/5 Skin no rashes, warm and dry Neurologic patellar DTR's 2+ bilat, sensation intact Psychiatric A+Ox3, euthymic affect Genitourinary no vaginal lesions, no adnexal mass Lymphatic no cervical or axillary lymphadenopathy Discharge Data Allergies Allergy/AdvReac Type Severity Reaction Status Date / Time Penicillins Allergy Mild RASH Verified 08/15/18 10:07 Consultations 08/15/18 18:27 Consult Hospitalist Routine 08/16/18 08:00 Consult Case Management - Discharge Planning Routine 08/18/18 13:52 Consult Infectious Diseases Routine Procedures Performed Operation Date: 08/15/18 11:15 Actual Procedures p Right Hip Removal Antibiotic Spacer, Total Hip Revision Arthroplasty(Right) - Marcus Ferrera DO Ordered Studies Lab Results 06/21/18 06/21/18 06/21/18 Range/Units 11:41 11:41 11:41 WBC 18.82 H (4.8-10.8) K/uL RBC 3.33 L (4.2-5.4) M/uL Hgb 11.5 L (12.0-16.0) g/dL Hct 35.3 L (37-47) % MCV 106.0 H (80-100) fL MCH 34.5 H (25-34) pg MCHC 32.6 (32-36) g/dL RDW Std Deviation 66.2 H (36.4-46.3) fL RDW Coeff of Maria D 17.2 H (11.5-14.5) % Plt Count 244 (130-400) K/uL MPV 12.0 H (7.4-10.4) fL Immature Gran % (Auto) % Neut % (Auto) % Lymph % (Auto) % [place] % (Auto) % Eos % (Auto) % Baso % (Auto) % Immature Gran # (Auto) (0.00-0.02) K/uL Neut # (Auto) (1.4-6.5) K/uL Lymph # (Auto) (1.2-3.4) K/uL [place] # (Auto) (0.11-0.59) K/uL Eos # (Auto) (0-0.5) K/uL Baso # (Auto) (0-0.2) K/uL Absolute Nucleated RBC 0.13 H (0-0) K/uL Nucleated RBC % (auto) 0.7 % Neutrophils % (Manual) 86.0 % Lymphocytes % (Manual) 10.0 % Monocytes % (Manual) 1.0 % Eosinophils % (Manual) 2.0 % Metamyelocytes % (Man) % Myelocytes % (Man) 1.0 % Neutrophils # (Manual) 16.19 H (1.4-6.5) K/uL Total Absolute Neuts 16.19 H (1.4-6.5) K/uL Lymphocytes # (Manual) 1.88 (1.2-3.4) K/uL Total Abs Lymphocytes 1.88 (1.2-3.4) K/uL Monocytes # (Manual) 0.19 (0.11-0.59) K/uL Eosinophils # (Manual) 0.38 (0-0.5) K/uL Metamyelocytes # (Man) (0-0) K/uL Myelocytes # (Manual) 0.19 H (0-0) K/uL Hypogranular Neuts 1+ Polychromasia Anisocytosis Echinocytes ESR (0-21) mm/hr PT 11.1 (9.0-12.0) Seconds INR 1.1 (0.9-1.1) APTT 27.9 (21.0-31.0) Seconds PTT Ratio 1.0 Sodium 139 (136-145) mmol/L Potassium 3.8 (3.5-5.1) mmol/L Chloride 103 (98-107) mmol/L Carbon Dioxide 30 (21-32) mmol/L Anion Gap 6.0 (3-11) BUN 39 H (7-18) mg/dl Creatinine 1.40 H (0.6-1.2) mg/dl Est Cr Clr Drug Dosing 32.1 ml/min Est GFR ( Amer) 39.9 Est GFR (Non-Af Amer) 34.4 BUN/Creatinine Ratio 27.5 H (10-20) Glucose 98 (70-99) mg/dl POC Glucose (70-99) Estimat Average Glucose mg/dl Hemoglobin A1c (4.5-5.6) % Calcium 8.9 (8.5-10.1) mg/dl Total Creatine Kinase (26-192) U/L C-Reactive Protein (0-0.29) mg/dl Albumin 2.8 L (3.4-5.0) gm/dl TSH (0.300-4.500) uIu/ml Free T4 (0.8-1.6) ng/dl Cortisol AM Sample (4.3-22.4) mcg/dl Urine Color Urine Appearance (Clear) Urine pH (4.5-7.5) Ur Specific [place] (1.000-1.030) Urine Protein (Negative) Urine Glucose (UA) (Negative) Urine Ketones (Negative) Urine Blood (Negative) Urine Nitrite (Negative) Urine Bilirubin (Negative) Urine Urobilinogen (Negative) Ur Leukocyte Esterase (Negative) Urine WBC (Auto) (0-5) /hpf Urine RBC (Auto) (0-4) /hpf U Hyaline Cast (Auto) (0-5) /lpf U Epithel Cells (Auto) (0-5) /lpf Urine Bacteria (Auto) (Negative) Blood Type Antibody Screen Antibody Identification Antigen Identification Direct Antiglob Test (Negative) GEORGIE (IgG-AHG) (Negative) GEORGIE, Polyspecific (Negative) GEORGIE C3b, C3d 5 Min (Negative) Crossmatch 06/21/18 06/21/18 06/21/18 Range/Units 11:41 11:41 Unknown WBC (4.8-10.8) K/uL RBC (4.2-5.4) M/uL Hgb (12.0-16.0) g/dL Hct (37-47) % MCV (80-100) fL MCH (25-34) pg MCHC (32-36) g/dL RDW Std Deviation (36.4-46.3) fL RDW Coeff of Maria D (11.5-14.5) % Plt Count (130-400) K/uL MPV (7.4-10.4) fL Immature Gran % (Auto) % Neut % (Auto) % Lymph % (Auto) % [place] % (Auto) % Eos % (Auto) % Baso % (Auto) % Immature Gran # (Auto) (0.00-0.02) K/uL Neut # (Auto) (1.4-6.5) K/uL Lymph # (Auto) (1.2-3.4) K/uL [place] # (Auto) (0.11-0.59) K/uL Eos # (Auto) (0-0.5) K/uL Baso # (Auto) (0-0.2) K/uL Absolute Nucleated RBC (0-0) K/uL Nucleated RBC % (auto) % Neutrophils % (Manual) % Lymphocytes % (Manual) % Monocytes % (Manual) % Eosinophils % (Manual) % Metamyelocytes % (Man) % Myelocytes % (Man) % Neutrophils # (Manual) (1.4-6.5) K/uL Total Absolute Neuts (1.4-6.5) K/uL Lymphocytes # (Manual) (1.2-3.4) K/uL Total Abs Lymphocytes (1.2-3.4) K/uL Monocytes # (Manual) (0.11-0.59) K/uL Eosinophils # (Manual) (0-0.5) K/uL Metamyelocytes # (Man) (0-0) K/uL Myelocytes # (Manual) (0-0) K/uL Hypogranular Neuts Polychromasia Anisocytosis Echinocytes ESR (0-21) mm/hr PT (9.0-12.0) Seconds INR (0.9-1.1) APTT (21.0-31.0) Seconds PTT Ratio Sodium (136-145) mmol/L Potassium (3.5-5.1) mmol/L Chloride (98-107) mmol/L Carbon Dioxide (21-32) mmol/L Anion Gap (3-11) BUN (7-18) mg/dl Creatinine (0.6-1.2) mg/dl Est Cr Clr Drug Dosing ml/min Est GFR ( Amer) Est GFR (Non-Af Amer) BUN/Creatinine Ratio (10-20) Glucose (70-99) mg/dl POC Glucose (70-99) Estimat Average Glucose 111 mg/dl Hemoglobin A1c 5.5 (4.5-5.6) % Calcium (8.5-10.1) mg/dl Total Creatine Kinase (26-192) U/L C-Reactive Protein (0-0.29) mg/dl Albumin (3.4-5.0) gm/dl TSH (0.300-4.500) uIu/ml Free T4 (0.8-1.6) ng/dl Cortisol AM Sample (4.3-22.4) mcg/dl Urine Color Yellow Urine Appearance Clear (Clear) Urine pH 5.0 (4.5-7.5) Ur Specific [place] 1.012 (1.000-1.030) Urine Protein Negative (Negative) Urine Glucose (UA) Negative (Negative) Urine Ketones Negative (Negative) Urine Blood Negative (Negative) Urine Nitrite Negative (Negative) Urine Bilirubin Negative (Negative) Urine Urobilinogen Negative (Negative) Ur Leukocyte Esterase 2+ H (Negative) Urine WBC (Auto) >30 H (0-5) /hpf Urine RBC (Auto) 0-4 (0-4) /hpf U Hyaline Cast (Auto) 1-5 (0-5) /lpf U Epithel Cells (Auto) 0-5 (0-5) /lpf Urine Bacteria (Auto) Negative (Negative) Blood Type O Positive Antibody Screen POSITIVE A Antibody Identification Anti-K Antigen Identification K Antigen - NEGATIVE Direct Antiglob Test Negative (Negative) GEORGIE (IgG-AHG) Neg (Negative) GEORGIE, Polyspecific Neg (Negative) GEORGIE C3b, C3d 5 Min Neg (Negative) Crossmatch 04/30/19 05/01/19 05/01/19 Range/Units 09:57 05:31 05:31 WBC 35.62 H* (4.8-10.8) K/uL RBC 2.19 L (4.2-5.4) M/uL Hgb 7.3 L (12.0-16.0) g/dL Hct 22.6 L (37-47) % MCV 103.2 H (80-100) fL MCH 33.3 (25-34) pg MCHC 32.3 (32-36) g/dL RDW Std Deviation 61.6 H (36.4-46.3) fL RDW Coeff of Maria D 16.7 H (11.5-14.5) % Plt Count 253 (130-400) K/uL MPV 10.3 (7.4-10.4) fL Immature Gran % (Auto) % Neut % (Auto) % Lymph % (Auto) % [place] % (Auto) % Eos % (Auto) % Baso % (Auto) % Immature Gran # (Auto) (0.00-0.02) K/uL Neut # (Auto) (1.4-6.5) K/uL Lymph # (Auto) (1.2-3.4) K/uL [place] # (Auto) (0.11-0.59) K/uL Eos # (Auto) (0-0.5) K/uL Baso # (Auto) (0-0.2) K/uL Absolute Nucleated RBC 0.31 H (0-0) K/uL Nucleated RBC % (auto) 0.9 % Neutrophils % (Manual) 94.0 % Lymphocytes % (Manual) 1.7 % Monocytes % (Manual) % Eosinophils % (Manual) % Metamyelocytes % (Man) 1.7 % Myelocytes % (Man) 2.6 % Neutrophils # (Manual) 33.48 H (1.4-6.5) K/uL Total Absolute Neuts 33.48 H (1.4-6.5) K/uL Lymphocytes # (Manual) 0.61 L (1.2-3.4) K/uL Total Abs Lymphocytes 0.61 L (1.2-3.4) K/uL Monocytes # (Manual) (0.11-0.59) K/uL Eosinophils # (Manual) (0-0.5) K/uL Metamyelocytes # (Man) 0.61 H (0-0) K/uL Myelocytes # (Manual) 0.93 H (0-0) K/uL Hypogranular Neuts Polychromasia 1+ Anisocytosis Echinocytes ESR (0-21) mm/hr PT (9.0-12.0) Seconds INR (0.9-1.1) APTT (21.0-31.0) Seconds PTT Ratio Sodium 136 (136-145) mmol/L Potassium 4.6 (3.5-5.1) mmol/L Chloride 105 (98-107) mmol/L Carbon Dioxide 26 (21-32) mmol/L Anion Gap 5.0 (3-11) BUN 40 H (7-18) mg/dl Creatinine 1.83 H (0.6-1.2) mg/dl Est Cr Clr Drug Dosing 23.9 ml/min Est GFR ( Amer) 28.9 Est GFR (Non-Af Amer) 24.9 BUN/Creatinine Ratio 21.9 H (10-20) Glucose 136 H (70-99) mg/dl POC Glucose (70-99) Estimat Average Glucose mg/dl Hemoglobin A1c (4.5-5.6) % Calcium 7.8 L (8.5-10.1) mg/dl Total Creatine Kinase (26-192) U/L C-Reactive Protein (0-0.29) mg/dl Albumin (3.4-5.0) gm/dl TSH (0.300-4.500) uIu/ml Free T4 (0.8-1.6) ng/dl Cortisol AM Sample (4.3-22.4) mcg/dl Urine Color Urine Appearance (Clear) Urine pH (4.5-7.5) Ur Specific [place] (1.000-1.030) Urine Protein (Negative) Urine Glucose (UA) (Negative) Urine Ketones (Negative) Urine Blood (Negative) Urine Nitrite (Negative) Urine Bilirubin (Negative) Urine Urobilinogen (Negative) Ur Leukocyte Esterase (Negative) Urine WBC (Auto) (0-5) /hpf Urine RBC (Auto) (0-4) /hpf U Hyaline Cast (Auto) (0-5) /lpf U Epithel Cells (Auto) (0-5) /lpf Urine Bacteria (Auto) (Negative) Blood Type O Positive Antibody Screen POSITIVE A Antibody Identification Anti-K Antigen Identification Direct Antiglob Test Negative (Negative) GEORGIE (IgG-AHG) Neg (Negative) GEORGEI, Polyspecific Neg (Negative) GEORGIE C3b, C3d 5 Min Neg (Negative) Crossmatch See Detail 08/17/18 08/17/18 08/17/18 Range/Units 06:03 06:03 16:59 WBC 21.16 H (4.8-10.8) K/uL RBC 2.41 L (4.2-5.4) M/uL Hgb 7.6 L (12.0-16.0) g/dL Hct 22.4 L (37-47) % MCV 92.9 D (80-100) fL MCH 31.5 (25-34) pg MCHC 33.9 (32-36) g/dL RDW Std Deviation 76.9 H (36.4-46.3) fL RDW Coeff of Maria D 22.8 H (11.5-14.5) % Plt Count 154 (130-400) K/uL MPV 10.7 H (7.4-10.4) fL Immature Gran % (Auto) % Neut % (Auto) % Lymph % (Auto) % [place] % (Auto) % Eos % (Auto) % Baso % (Auto) % Immature Gran # (Auto) (0.00-0.02) K/uL Neut # (Auto) (1.4-6.5) K/uL Lymph # (Auto) (1.2-3.4) K/uL [place] # (Auto) (0.11-0.59) K/uL Eos # (Auto) (0-0.5) K/uL Baso # (Auto) (0-0.2) K/uL Absolute Nucleated RBC 0.12 H (0-0) K/uL Nucleated RBC % (auto) 0.6 % Neutrophils % (Manual) 86.1 % Lymphocytes % (Manual) 11.3 % Monocytes % (Manual) 0.9 % Eosinophils % (Manual) % Metamyelocytes % (Man) % Myelocytes % (Man) 1.7 % Neutrophils # (Manual) 18.22 H (1.4-6.5) K/uL Total Absolute Neuts 18.22 H (1.4-6.5) K/uL Lymphocytes # (Manual) 2.39 (1.2-3.4) K/uL Total Abs Lymphocytes 2.39 (1.2-3.4) K/uL Monocytes # (Manual) 0.19 (0.11-0.59) K/uL Eosinophils # (Manual) (0-0.5) K/uL Metamyelocytes # (Man) (0-0) K/uL Myelocytes # (Manual) 0.36 H (0-0) K/uL Hypogranular Neuts Polychromasia Anisocytosis Present Echinocytes 1+ ESR (0-21) mm/hr PT (9.0-12.0) Seconds INR (0.9-1.1) APTT (21.0-31.0) Seconds PTT Ratio Sodium 136 (136-145) mmol/L Potassium 4.3 (3.5-5.1) mmol/L Chloride 108 H (98-107) mmol/L Carbon Dioxide 22 (21-32) mmol/L Anion Gap 6.0 (3-11) BUN 44 H (7-18) mg/dl Creatinine 2.25 H D (0.6-1.2) mg/dl Est Cr Clr Drug Dosing 19.5 ml/min Est GFR ( Amer) 22.5 Est GFR (Non-Af Amer) 19.4 BUN/Creatinine Ratio 19.4 (10-20) Glucose 87 (70-99) mg/dl POC Glucose 110 H (70-99) Estimat Average Glucose mg/dl Hemoglobin A1c (4.5-5.6) % Calcium 6.9 L (8.5-10.1) mg/dl Total Creatine Kinase (26-192) U/L C-Reactive Protein (0-0.29) mg/dl Albumin (3.4-5.0) gm/dl TSH (0.300-4.500) uIu/ml Free T4 (0.8-1.6) ng/dl Cortisol AM Sample (4.3-22.4) mcg/dl Urine Color Urine Appearance (Clear) Urine pH (4.5-7.5) Ur Specific [place] (1.000-1.030) Urine Protein (Negative) Urine Glucose (UA) (Negative) Urine Ketones (Negative) Urine Blood (Negative) Urine Nitrite (Negative) Urine Bilirubin (Negative) Urine Urobilinogen (Negative) Ur Leukocyte Esterase (Negative) Urine WBC (Auto) (0-5) /hpf Urine RBC (Auto) (0-4) /hpf U Hyaline Cast (Auto) (0-5) /lpf U Epithel Cells (Auto) (0-5) /lpf Urine Bacteria (Auto) (Negative) Blood Type Antibody Screen Antibody Identification Antigen Identification Direct Antiglob Test (Negative) GEORGIE (IgG-AHG) (Negative) GEORGIE, Polyspecific (Negative) GEORGIE C3b, C3d 5 Min (Negative) Crossmatch 08/18/18 08/18/18 08/19/18 Range/Units 05:38 05:38 06:08 WBC 12.94 H (4.8-10.8) K/uL RBC 2.90 L (4.2-5.4) M/uL Hgb 9.1 L (12.0-16.0) g/dL Hct 26.3 L (37-47) % MCV 90.7 (80-100) fL MCH 31.4 (25-34) pg MCHC 34.6 (32-36) g/dL RDW Std Deviation 64.9 H (36.4-46.3) fL RDW Coeff of Maria D 20.2 H (11.5-14.5) % Plt Count 132 (130-400) K/uL MPV 10.3 (7.4-10.4) fL Immature Gran % (Auto) 5.6 % Neut % (Auto) 66.1 % Lymph % (Auto) 18.1 % [place] % (Auto) 8.9 % Eos % (Auto) 0.9 % Baso % (Auto) 0.4 % Immature Gran # (Auto) 0.73 H (0.00-0.02) K/uL Neut # (Auto) 8.56 H (1.4-6.5) K/uL Lymph # (Auto) 2.34 (1.2-3.4) K/uL [place] # (Auto) 1.15 H (0.11-0.59) K/uL Eos # (Auto) 0.11 (0-0.5) K/uL Baso # (Auto) 0.05 (0-0.2) K/uL Absolute Nucleated RBC 0.23 H (0-0) K/uL Nucleated RBC % (auto) 1.7 % Neutrophils % (Manual) % Lymphocytes % (Manual) % Monocytes % (Manual) % Eosinophils % (Manual) % Metamyelocytes % (Man) % Myelocytes % (Man) % Neutrophils # (Manual) (1.4-6.5) K/uL Total Absolute Neuts (1.4-6.5) K/uL Lymphocytes # (Manual) (1.2-3.4) K/uL Total Abs Lymphocytes (1.2-3.4) K/uL Monocytes # (Manual) (0.11-0.59) K/uL Eosinophils # (Manual) (0-0.5) K/uL Metamyelocytes # (Man) (0-0) K/uL Myelocytes # (Manual) (0-0) K/uL Hypogranular Neuts Polychromasia Anisocytosis Present Echinocytes ESR (0-21) mm/hr PT (9.0-12.0) Seconds INR (0.9-1.1) APTT (21.0-31.0) Seconds PTT Ratio Sodium 138 140 (136-145) mmol/L Potassium 4.1 3.9 (3.5-5.1) mmol/L Chloride 111 H 112 H (98-107) mmol/L Carbon Dioxide 24 24 (21-32) mmol/L Anion Gap 3.0 5.0 (3-11) BUN 35 H 26 H (7-18) mg/dl Creatinine 1.71 H D 1.35 H D (0.6-1.2) mg/dl Est Cr Clr Drug Dosing 27.7 35.1 ml/min Est GFR ( Amer) 31.3 41.7 Est GFR (Non-Af Amer) 27.0 36.0 BUN/Creatinine Ratio 20.4 H 19.1 (10-20) Glucose 71 73 (70-99) mg/dl POC Glucose (70-99) Estimat Average Glucose mg/dl Hemoglobin A1c (4.5-5.6) % Calcium 8.1 L D 9.0 (8.5-10.1) mg/dl Total Creatine Kinase (26-192) U/L C-Reactive Protein 6.30 H (0-0.29) mg/dl Albumin (3.4-5.0) gm/dl TSH (0.300-4.500) uIu/ml Free T4 (0.8-1.6) ng/dl Cortisol AM Sample (4.3-22.4) mcg/dl Urine Color Urine Appearance (Clear) Urine pH (4.5-7.5) Ur Specific [place] (1.000-1.030) Urine Protein (Negative) Urine Glucose (UA) (Negative) Urine Ketones (Negative) Urine Blood (Negative) Urine Nitrite (Negative) Urine Bilirubin (Negative) Urine Urobilinogen (Negative) Ur Leukocyte Esterase (Negative) Urine WBC (Auto) (0-5) /hpf Urine RBC (Auto) (0-4) /hpf U Hyaline Cast (Auto) (0-5) /lpf U Epithel Cells (Auto) (0-5) /lpf Urine Bacteria (Auto) (Negative) Blood Type Antibody Screen Antibody Identification Antigen Identification Direct Antiglob Test (Negative) GEORGIE (IgG-AHG) (Negative) GEORGIE, Polyspecific (Negative) GEORGIE C3b, C3d 5 Min (Negative) Crossmatch 08/19/18 08/19/18 08/20/18 Range/Units 06:08 06:08 05:43 WBC 10.70 (4.8-10.8) K/uL RBC 2.98 L (4.2-5.4) M/uL Hgb 9.2 L (12.0-16.0) g/dL Hct 27.7 L (37-47) % MCV 93.0 (80-100) fL MCH 30.9 (25-34) pg MCHC 33.2 (32-36) g/dL RDW Std Deviation 66.4 H (36.4-46.3) fL RDW Coeff of Maria D 20.1 H (11.5-14.5) % Plt Count 154 (130-400) K/uL MPV 10.3 (7.4-10.4) fL Immature Gran % (Auto) % Neut % (Auto) % Lymph % (Auto) % [place] % (Auto) % Eos % (Auto) % Baso % (Auto) % Immature Gran # (Auto) (0.00-0.02) K/uL Neut # (Auto) (1.4-6.5) K/uL Lymph # (Auto) (1.2-3.4) K/uL [place] # (Auto) (0.11-0.59) K/uL Eos # (Auto) (0-0.5) K/uL Baso # (Auto) (0-0.2) K/uL Absolute Nucleated RBC 0.24 H (0-0) K/uL Nucleated RBC % (auto) 2.2 % Neutrophils % (Manual) 72.3 % Lymphocytes % (Manual) 13.0 % Monocytes % (Manual) 7.0 % Eosinophils % (Manual) 1.7 % Metamyelocytes % (Man) 1.7 % Myelocytes % (Man) 4.3 % Neutrophils # (Manual) 7.74 H (1.4-6.5) K/uL Total Absolute Neuts 7.74 H (1.4-6.5) K/uL Lymphocytes # (Manual) 1.39 (1.2-3.4) K/uL Total Abs Lymphocytes 1.39 (1.2-3.4) K/uL Monocytes # (Manual) 0.75 H (0.11-0.59) K/uL Eosinophils # (Manual) 0.18 (0-0.5) K/uL Metamyelocytes # (Man) 0.18 H (0-0) K/uL Myelocytes # (Manual) 0.46 H (0-0) K/uL Hypogranular Neuts Polychromasia 1+ Anisocytosis Present Echinocytes ESR 15 (0-21) mm/hr PT (9.0-12.0) Seconds INR (0.9-1.1) APTT (21.0-31.0) Seconds PTT Ratio Sodium 142 (136-145) mmol/L Potassium 3.9 (3.5-5.1) mmol/L Chloride 111 H (98-107) mmol/L Carbon Dioxide 24 (21-32) mmol/L Anion Gap 7.0 (3-11) BUN 21 H (7-18) mg/dl Creatinine 1.13 (0.6-1.2) mg/dl Est Cr Clr Drug Dosing 41.9 ml/min Est GFR ( Amer) 51.7 Est GFR (Non-Af Amer) 44.6 BUN/Creatinine Ratio 18.7 (10-20) Glucose 70 (70-99) mg/dl POC Glucose (70-99) Estimat Average Glucose mg/dl Hemoglobin A1c (4.5-5.6) % Calcium 8.9 (8.5-10.1) mg/dl Total Creatine Kinase (26-192) U/L C-Reactive Protein (0-0.29) mg/dl Albumin (3.4-5.0) gm/dl TSH (0.300-4.500) uIu/ml Free T4 (0.8-1.6) ng/dl Cortisol AM Sample (4.3-22.4) mcg/dl Urine Color Urine Appearance (Clear) Urine pH (4.5-7.5) Ur Specific [place] (1.000-1.030) Urine Protein (Negative) Urine Glucose (UA) (Negative) Urine Ketones (Negative) Urine Blood (Negative) Urine Nitrite (Negative) Urine Bilirubin (Negative) Urine Urobilinogen (Negative) Ur Leukocyte Esterase (Negative) Urine WBC (Auto) (0-5) /hpf Urine RBC (Auto) (0-4) /hpf U Hyaline Cast (Auto) (0-5) /lpf U Epithel Cells (Auto) (0-5) /lpf Urine Bacteria (Auto) (Negative) Blood Type Antibody Screen Antibody Identification Antigen Identification Direct Antiglob Test (Negative) GEORGIE (IgG-AHG) (Negative) GEORGIE, Polyspecific (Negative) GEORGIE C3b, C3d 5 Min (Negative) Crossmatch 08/20/18 08/20/18 08/21/18 Range/Units 05:43 12:33 05:35 WBC 10.48 (4.8-10.8) K/uL RBC 3.02 L (4.2-5.4) M/uL Hgb 9.4 L (12.0-16.0) g/dL Hct 28.6 L (37-47) % MCV 94.7 (80-100) fL MCH 31.1 (25-34) pg MCHC 32.9 (32-36) g/dL RDW Std Deviation 65.3 H (36.4-46.3) fL RDW Coeff of Maria D 20.0 H (11.5-14.5) % Plt Count 182 (130-400) K/uL MPV 10.3 (7.4-10.4) fL Immature Gran % (Auto) % Neut % (Auto) % Lymph % (Auto) % [place] % (Auto) % Eos % (Auto) % Baso % (Auto) % Immature Gran # (Auto) (0.00-0.02) K/uL Neut # (Auto) (1.4-6.5) K/uL Lymph # (Auto) (1.2-3.4) K/uL [place] # (Auto) (0.11-0.59) K/uL Eos # (Auto) (0-0.5) K/uL Baso # (Auto) (0-0.2) K/uL Absolute Nucleated RBC 0.09 H (0-0) K/uL Nucleated RBC % (auto) 0.8 % Neutrophils % (Manual) 75.1 % Lymphocytes % (Manual) 15.9 % Monocytes % (Manual) 2.7 % Eosinophils % (Manual) 2.7 % Metamyelocytes % (Man) 0.9 % Myelocytes % (Man) 2.7 % Neutrophils # (Manual) 7.87 H (1.4-6.5) K/uL Total Absolute Neuts 7.87 H (1.4-6.5) K/uL Lymphocytes # (Manual) 1.67 (1.2-3.4) K/uL Total Abs Lymphocytes 1.67 (1.2-3.4) K/uL Monocytes # (Manual) 0.28 (0.11-0.59) K/uL Eosinophils # (Manual) 0.28 (0-0.5) K/uL Metamyelocytes # (Man) 0.09 H (0-0) K/uL Myelocytes # (Manual) 0.28 H (0-0) K/uL Hypogranular Neuts Polychromasia Anisocytosis Echinocytes ESR (0-21) mm/hr PT (9.0-12.0) Seconds INR (0.9-1.1) APTT (21.0-31.0) Seconds PTT Ratio Sodium 138 (136-145) mmol/L Potassium 3.6 (3.5-5.1) mmol/L Chloride 105 (98-107) mmol/L Carbon Dioxide 26 (21-32) mmol/L Anion Gap 7.0 (3-11) BUN 17 (7-18) mg/dl Creatinine 1.19 (0.6-1.2) mg/dl Est Cr Clr Drug Dosing 39.8 ml/min Est GFR ( Amer) 48.5 Est GFR (Non-Af Amer) 41.9 BUN/Creatinine Ratio 14.4 (10-20) Glucose 69 L (70-99) mg/dl POC Glucose 102 H (70-99) Estimat Average Glucose mg/dl Hemoglobin A1c (4.5-5.6) % Calcium 8.9 (8.5-10.1) mg/dl Total Creatine Kinase 15 L (26-192) U/L C-Reactive Protein (0-0.29) mg/dl Albumin (3.4-5.0) gm/dl TSH (0.300-4.500) uIu/ml Free T4 (0.8-1.6) ng/dl Cortisol AM Sample (4.3-22.4) mcg/dl Urine Color Urine Appearance (Clear) Urine pH (4.5-7.5) Ur Specific [place] (1.000-1.030) Urine Protein (Negative) Urine Glucose (UA) (Negative) Urine Ketones (Negative) Urine Blood (Negative) Urine Nitrite (Negative) Urine Bilirubin (Negative) Urine Urobilinogen (Negative) Ur Leukocyte Esterase (Negative) Urine WBC (Auto) (0-5) /hpf Urine RBC (Auto) (0-4) /hpf U Hyaline Cast (Auto) (0-5) /lpf U Epithel Cells (Auto) (0-5) /lpf Urine Bacteria (Auto) (Negative) Blood Type Antibody Screen Antibody Identification Antigen Identification Direct Antiglob Test (Negative) GEORGIE (IgG-AHG) (Negative) GEORGIE, Polyspecific (Negative) GEORGIE C3b, C3d 5 Min (Negative) Crossmatch 08/21/18 08/22/18 08/22/18 Range/Units 05:35 08:14 08:14 WBC 10.80 10.19 (4.8-10.8) K/uL RBC 3.35 L 3.02 L (4.2-5.4) M/uL Hgb 10.3 L 9.4 L (12.0-16.0) g/dL Hct 31.6 L 28.5 L (37-47) % MCV 94.3 94.4 (80-100) fL MCH 30.7 31.1 (25-34) pg MCHC 32.6 33.0 (32-36) g/dL RDW Std Deviation 65.1 H 63.7 H (36.4-46.3) fL RDW Coeff of Maria D 20.2 H 19.8 H (11.5-14.5) % Plt Count 202 212 (130-400) K/uL MPV 10.5 H 10.1 (7.4-10.4) fL Immature Gran % (Auto) % Neut % (Auto) % Lymph % (Auto) % [place] % (Auto) % Eos % (Auto) % Baso % (Auto) % Immature Gran # (Auto) (0.00-0.02) K/uL Neut # (Auto) (1.4-6.5) K/uL Lymph # (Auto) (1.2-3.4) K/uL [place] # (Auto) (0.11-0.59) K/uL Eos # (Auto) (0-0.5) K/uL Baso # (Auto) (0-0.2) K/uL Absolute Nucleated RBC 0.09 H 0.07 H (0-0) K/uL Nucleated RBC % (auto) 0.8 0.7 % Neutrophils % (Manual) 73.9 79.1 % Lymphocytes % (Manual) 17.4 12.2 % Monocytes % (Manual) 5.2 2.6 % Eosinophils % (Manual) 1.7 0.9 % Metamyelocytes % (Man) 0.9 4.3 % Myelocytes % (Man) 0.9 0.9 % Neutrophils # (Manual) 7.98 H 8.06 H (1.4-6.5) K/uL Total Absolute Neuts 7.98 H 8.06 H (1.4-6.5) K/uL Lymphocytes # (Manual) 1.88 1.24 (1.2-3.4) K/uL Total Abs Lymphocytes 1.88 1.24 (1.2-3.4) K/uL Monocytes # (Manual) 0.56 0.26 (0.11-0.59) K/uL Eosinophils # (Manual) 0.18 0.09 (0-0.5) K/uL Metamyelocytes # (Man) 0.10 H 0.44 H (0-0) K/uL Myelocytes # (Manual) 0.10 H 0.09 H (0-0) K/uL Hypogranular Neuts Polychromasia 1+ Anisocytosis Present Echinocytes ESR (0-21) mm/hr PT (9.0-12.0) Seconds INR (0.9-1.1) APTT (21.0-31.0) Seconds PTT Ratio Sodium 138 (136-145) mmol/L Potassium 4.0 (3.5-5.1) mmol/L Chloride 104 (98-107) mmol/L Carbon Dioxide 25 (21-32) mmol/L Anion Gap 9.0 (3-11) BUN 18 (7-18) mg/dl Creatinine 1.43 H (0.6-1.2) mg/dl Est Cr Clr Drug Dosing 33.1 ml/min Est GFR ( Amer) 38.9 Est GFR (Non-Af Amer) 33.5 BUN/Creatinine Ratio 12.9 (10-20) Glucose 85 (70-99) mg/dl POC Glucose (70-99) Estimat Average Glucose mg/dl Hemoglobin A1c (4.5-5.6) % Calcium 8.6 (8.5-10.1) mg/dl Total Creatine Kinase 19 L (26-192) U/L C-Reactive Protein (0-0.29) mg/dl Albumin (3.4-5.0) gm/dl TSH 0.157 L (0.300-4.500) uIu/ml Free T4 0.28 L (0.8-1.6) ng/dl Cortisol AM Sample (4.3-22.4) mcg/dl Urine Color Urine Appearance (Clear) Urine pH (4.5-7.5) Ur Specific [place] (1.000-1.030) Urine Protein (Negative) Urine Glucose (UA) (Negative) Urine Ketones (Negative) Urine Blood (Negative) Urine Nitrite (Negative) Urine Bilirubin (Negative) Urine Urobilinogen (Negative) Ur Leukocyte Esterase (Negative) Urine WBC (Auto) (0-5) /hpf Urine RBC (Auto) (0-4) /hpf U Hyaline Cast (Auto) (0-5) /lpf U Epithel Cells (Auto) (0-5) /lpf Urine Bacteria (Auto) (Negative) Blood Type Antibody Screen Antibody Identification Antigen Identification Direct Antiglob Test (Negative) GEORGIE (IgG-AHG) (Negative) GEORGIE, Polyspecific (Negative) GEORGIE C3b, C3d 5 Min (Negative) Crossmatch 08/22/18 Range/Units 08:14 WBC (4.8-10.8) K/uL RBC (4.2-5.4) M/uL Hgb (12.0-16.0) g/dL Hct (37-47) % MCV (80-100) fL MCH (25-34) pg MCHC (32-36) g/dL RDW Std Deviation (36.4-46.3) fL RDW Coeff of Maria D (11.5-14.5) % Plt Count (130-400) K/uL MPV (7.4-10.4) fL Immature Gran % (Auto) % Neut % (Auto) % Lymph % (Auto) % [place] % (Auto) % Eos % (Auto) % Baso % (Auto) % Immature Gran # (Auto) (0.00-0.02) K/uL Neut # (Auto) (1.4-6.5) K/uL Lymph # (Auto) (1.2-3.4) K/uL Labette # (Auto) (0.11-0.59) K/uL Eos # (Auto) (0-0.5) K/uL Baso # (Auto) (0-0.2) K/uL Absolute Nucleated RBC (0-0) K/uL Nucleated RBC % (auto) % Neutrophils % (Manual) % Lymphocytes % (Manual) % Monocytes % (Manual) % Eosinophils % (Manual) % Metamyelocytes % (Man) % Myelocytes % (Man) % Neutrophils # (Manual) (1.4-6.5) K/uL Total Absolute Neuts (1.4-6.5) K/uL Lymphocytes # (Manual) (1.2-3.4) K/uL Total Abs Lymphocytes (1.2-3.4) K/uL Monocytes # (Manual) (0.11-0.59) K/uL Eosinophils # (Manual) (0-0.5) K/uL Metamyelocytes # (Man) (0-0) K/uL Myelocytes # (Manual) (0-0) K/uL Hypogranular Neuts Polychromasia Anisocytosis Echinocytes ESR (0-21) mm/hr PT (9.0-12.0) Seconds INR (0.9-1.1) APTT (21.0-31.0) Seconds PTT Ratio Sodium (136-145) mmol/L Potassium (3.5-5.1) mmol/L Chloride (98-107) mmol/L Carbon Dioxide (21-32) mmol/L Anion Gap (3-11) BUN (7-18) mg/dl Creatinine (0.6-1.2) mg/dl Est Cr Clr Drug Dosing ml/min Est GFR ( Amer) Est GFR (Non-Af Amer) BUN/Creatinine Ratio (10-20) Glucose (70-99) mg/dl POC Glucose (70-99) Estimat Average Glucose mg/dl Hemoglobin A1c (4.5-5.6) % Calcium (8.5-10.1) mg/dl Total Creatine Kinase (26-192) U/L C-Reactive Protein (0-0.29) mg/dl Albumin (3.4-5.0) gm/dl TSH (0.300-4.500) uIu/ml Free T4 (0.8-1.6) ng/dl Cortisol AM Sample 17.99 (4.3-22.4) mcg/dl Urine Color Urine Appearance (Clear) Urine pH (4.5-7.5) Ur Specific [place] (1.000-1.030) Urine Protein (Negative) Urine Glucose (UA) (Negative) Urine Ketones (Negative) Urine Blood (Negative) Urine Nitrite (Negative) Urine Bilirubin (Negative) Urine Urobilinogen (Negative) Ur Leukocyte Esterase (Negative) Urine WBC (Auto) (0-5) /hpf Urine RBC (Auto) (0-4) /hpf U Hyaline Cast (Auto) (0-5) /lpf U Epithel Cells (Auto) (0-5) /lpf Urine Bacteria (Auto) (Negative) Blood Type Antibody Screen Antibody Identification Antigen Identification Direct Antiglob Test (Negative) GEORGIE (IgG-AHG) (Negative) GEORGIE, Polyspecific (Negative) GEORGIE C3b, C3d 5 Min (Negative) Crossmatch Hospital Course (1) Infection of prosthetic total hip joint: The patient is a 83 -year-old female who presents with chronic periprosthetic right total hip infection treated with previous I&D and head and liner exchange, chronic suppressive antibiotics, local wound care, explant of prosthesis and placement of antibiotic cement spacer on 03/17/19, completed prolonged course IV abx. Negative IA right hip aspiration and synovasure after antibiotic holiday for greater than 2 weeks. The patient was cleared by her PCP Dr. Cho to proceed with revision R PALMIRA. I indicated the patient for a revision right total hip arthroplasty, removal of abx spacer, excision of surgical scar, the risks, benefits and complications of the procedure include but not limited to infection, bleeding, damage to bone, nerves, vessels, surrounding soft tissue, may develop blood clots, loss of function, leg length discrepancy, dislocation, failure of the components, loosening of the components, the need for additional surgery and . The patient and family wished to proceed with surgery at this time and informed consent was obtained. Hospital Course: On 08/15/18 the patient was taken to the operating room, adequate anesthesia administered and underwent a explant of antibiotic cement spacer, revision surgical scar, revision right total hip arthroplasty. The patient tolerated the procedure well and was taken to the PACU in stable condition. Post-operatively the patient was started on a DVT ppx medication and given appropriate IV antibiotics. Consults were placed to medical hospitalist, physical therapy, occupational therapy and case management. On POD#1, the patient did well overnight and their pain was well controlled. Labs were drawn and the Hgb was 35.62. The patient was slow to progress with PT. Dressings were clean, dry and intact. POD#1 -Postoperative antibiotics daptomycin and Cipro, continue until cultures negative -DVT prophylaxis : Teds/Eliquis, SCDs on operative extremity -Weight-bear as tolerated right lower extremity -Posterior hip precautions -PT/OT -Postoperative x-ray demonstrates a well aligned well fixed orthopedic prosthesis without evidence of fracture or dislocation -AM labs - hgb 7.3, will transfuse 2 units, WBC 35.62 -Monitor drain output #1 25 #2 50 -Medical hospitalist consult recs appreciated, monitoring ANDREW and steroids POD#2 -Postoperative antibiotics daptomycin and Cipro, continue until cultures negative -DVT prophylaxis : Teds/Eliquis, SCDs on operative extremity -Weight-bear as tolerated right lower extremity -Posterior hip precautions -PT/OT -Postoperative x-ray demonstrates a well aligned well fixed orthopedic prosthesis without evidence of fracture or dislocation -AM labs - hgb 7.6, will transfuse 1 unit -Monitor drain output #1 0 #2 50 -Medical hospitalist consult recs appreciated, monitoring ANDREW and steroids POD#3 -Postoperative antibiotics daptomycin and Cipro -DVT prophylaxis : Teds/Eliquis, SCDs on operative extremity -Weight-bear as tolerated right lower extremity -Posterior hip precautions -PT/OT -Postoperative x-ray demonstrates a well aligned well fixed orthopedic prosthesis without evidence of fracture or dislocation -AM labs - hgb 9.1, WBC 12.94 -Monitor drain output #1 0 #2 50 -Medical hospitalist consult recs appreciated, monitoring ANDREW and steroids -IO cultures returned postive for caog negative staph and Randi albicans -consultation placed to ID POD#4 -Postoperative antibiotics daptomycin and fluconazole -DVT prophylaxis : Teds/Eliquis, SCDs on operative extremity -Weight-bear as tolerated right lower extremity -Posterior hip precautions -PT/OT -Postoperative x-ray demonstrates a well aligned well fixed orthopedic prosthesis without evidence of fracture or dislocation -AM labs - hgb 9.2, WBC 10.70, CRP/ESR 6.4/15 -Monitor drain output #1 0 #2 50 -Medical hospitalist consult recs appreciated, monitoring ANDREW and steroids -IO cultures returned postive for caog negative staph and Randi albicans --ID recs appreciated, will continue dapto, stop cipro, previous pseudomonas was quinolone resistant, add fluconazole due to C. albicans now growing. unclear significance of rare WELL DIGGER but with new hip and wbc as high as 35 on admission, she would benefit from IV abx. will check blood cultures as well. States she plans to follow with ID in [place] post d/c as this is closer to home. -Follow blood cultures POD#5 -Postoperative antibiotics daptomycin and fluconazole -DVT prophylaxis : Teds/Eliquis, SCDs on operative extremity -Weight-bear as tolerated right lower extremity -Posterior hip precautions -PT/OT -Postoperative x-ray demonstrates a well aligned well fixed orthopedic prosthesis without evidence of fracture or dislocation -AM labs - hgb 9.4, WBC 10.48 -Monitor drain output, HMV #1 DC'd -Medical hospitalist consult recs appreciated and steroids -ID recs appreciated, will continue dapto, stop cipro, previous pseudomonas was quinolone resistant, add fluconazole due to C. albicans now growing. unclear significance of rare WELL DIGGER but with new hip and wbc as high as 35 on admission, she would benefit from IV abx. will check blood cultures as well. States she plans to follow with ID in [facility] d/c as this is closer to home. -Follow blood cultures POD#6 -Postoperative antibiotics daptomycin and fluconazole -DVT prophylaxis : Teds/Eliquis, SCDs on operative extremity -Weight-bear as tolerated right lower extremity -Posterior hip precautions -PT/OT -Postoperative x-ray demonstrates a well aligned well fixed orthopedic prosthesis without evidence of fracture or dislocation -AM labs - hgb 10.3, WBC 10.8 -Monitor drain output -Medical hospitalist consult recs appreciated and steroids -ID recs appreciated, will continue dapto, stop cipro, previous pseudomonas was quinolone resistant, add fluconazole due to C. albicans now growing. unclear significance of rare WELL DIGGER but with new hip and wbc as high as 35 on admission, she would benefit from IV abx. will check blood cultures as well. States she plans to follow with ID in [facility] d/c as this is closer to home. -Follow blood cultures POD#7 -Postoperative antibiotics daptomycin and fluconazole -DVT prophylaxis : Teds/Eliquis, SCDs on operative extremity -Weight-bear as tolerated right lower extremity -Posterior hip precautions -PT/OT -Postoperative x-ray demonstrates a well aligned well fixed orthopedic prosthesis without evidence of fracture or dislocation -AM labs - hgb 9.4, WBC 10.19 -HMV drain #2 DC'd -Medical hospitalist consult recs appreciated and steroids, -ANDREW, near baseline, encouraged fluids/PO, meds renally dosed -ID recs appreciated, will continue dapto, stop cipro, previous pseudomonas was quinolone resistant, add fluconazole due to C. albicans now growing. unclear significance of rare WELL DIGGER but with new hip and wbc as high as 35 on admission, she would benefit from IV abx. will check blood cultures as well. States she plans to follow with ID in [facility] d/c as this is closer to home.Will monitor inflammatory labs weekly including cbc, cmp, esr, cpk while on abx -Blood cultures negative The patient was deemed stable by the orthopedic team and consultants to be discharged to SNF on 08/22/18. Discharge Instructions: Upon discharge the patient may weight bear as tolerates through their operative extremity. They were instructed to keep the incision clean and dry at all times. The patient may shower but should not submerge the incision, avoid bathing, pools and hot tubes. The patient was given a script for pain medication and should take as instructed. The patient was given a script for DVT ppx Eliquis and should take as directed. The patient was instructed to not drive or travel for long distances until cleared to do so. If the patient develops any symptoms of fevers, chills, nausea, vomiting, increased redness, swelling, pain or drainage from the surgical site, they should notify the office and/or proceed to the nearest emergency room. The patient should follow up in 10-14 days after surgery for their routine post-operative follow-up appointment and should call the office to confirm the date and time. Total Time Total Time Spent Total Time Spent (In Minutes): >60 minutes Total Time Includes: Examination of the Patient, Discharge Planning, Medication Reconciliation and Communication With Other Providers Discharge Plan Discharge Items Patient Disposition: Transfer [facility] Reason For Visit: Right Hip Osteoarthritis Discharge Diagnosis: S/p Right PALMIRA infection with Revision Right PALMIRA Condition: Fair Discharge Goals: Decrease discomfort and Improve function Activity: Per 'Additional Instructions' section Weightbearing: Right weightbearing Weightbearing Comment: as tolerated with walker Non-emergency contact: Surgeon Call non-emergency contact if: you have any medication questions, your symptoms worsen, your pain is not controlled, your pain is worsening, your pain is unusual for you, your pain is concerning for you, you have a fever, your wound has increased redness, your wound has increased drainage and your wound pain has increased Follow-up/Referrals: Adam Cho D.O. [Primary Care Provider] - Diet: Regular Addtl Provider Instructions: 1. Prosthetic Hip Joint Infection Please continue Daptomycin 360 mg IV daily and Fluconazole 100 mg PO daily for empiric coverage. Pt. will need to continue IV antibiotic and PO anti-fungal; length of course will be determined by infectious disease. Please schedule a follow up appointment with infectious disease in 2-3 weeks to discuss treatment course. Please monitor labs, including CBC, CMP, ESR and CK level, weekly -- monitor and replace electrolytes as needed. PLEASE FAX RESULTS OF LAB WORK TO INFECTIOUS DISEASE AND TO DR. FERRERA. 2. Acute Kidney Injury Please monitor labs, including CMP, once weekly. Creatinine level was mildly elevated at 1.4 on day of discharge -- baseline creatinine is 0.8-1.1. Pt. will need repeat labs to monitor renal function in 3-4 days. Nephrotoxic agents, including Lasix, will need to be held if renal function continues to trend up. ACTIVITY RECOMMENDATIONS: SELF CARE INSTRUCTIONS AFTER TOTAL HIP REPLACEMENT Until the incision and soft tissues around your hip have healed, there is a possibility that the hip prosthesis could dislocate. A. Observe the following precautions to prevent dislocation: 1. Don't bend your hip greater than 90 degrees. 2. Avoid crossing your legs or ankles while standing or lying. 3. Sit with your feet placed 6 inches apart. 4. When sitting, keep your knees below your hips. Sit on a firm surface, avoid deep, soft chairs and couches. Use an elevated toilet seat in the bathroom. 5. Don't bend over at the waist. Use a long handled shoehorn and a sock aid to help you put on your shoes and socks. A cooking casing and drying supervisor can help you order picker/assembler objects that are too high or too low to reach. 6. Keep car riding to a minimum for at least one month after surgery. B. Your balance may be shaky for a while. Use crutches or a walker until directed by your doctor. C. Use hand rails when walking on stairs. D. Wear low heeled shoes with non-slip soles. E. Be sure that your floors are free of things that could trip you - throw rugs, electrical cords, small objects. Avoid wet and waxed floors, especially with crutches and canes. F. Try to walk several times a day with rest periods between. G. Continue with all the exercises taught to you in the hospital. Again, make walking a part of your daily routine. SPECIAL CARE INSTRUCTIONS: VERY IMPORTANT TO READ AND REVIEW A. You may still be at risk for phlebitis and blood clots. 1. Wear surgical stockings (MARIA G hose) for 2 weeks after surgery to improve circulation and reduce swelling. 2. Please continue Eliquis 2.5 mg BID for DVT prophylaxis. You can resume home Plavix following completion of Eliquis course in the future. 3. High risk patients may be prescribed a stronger blood thinner if necessary. B. You must take antibiotics before having dental work, bladder, bowel and other surgery. Your doctor will provide you with a permanent card to carry describing precautions. C. Call [facility] if you have a fever, redness or swelling around the incision, cloudy drainage from incision, or sudden increase in pain in your hip, not relieved by your regular pain medication. D. Please call the office at if you have any concerns or questions about your operation or recovery. * YOU MAY SHOWER, NO TUB BATHS UNTIL CLEARED BY YOUR DOCTOR. * WEAR MARIA G HOSE 20 HOURS PER DAY FOR 2 WEEKS. * YOU SHOULD USE A WALKER OR CRUTCHES FOR 2-4 WEEKS. THIS WILL HELP PREVENT STRAIN ON YOUR HIP MUSCLE AND ALLOW IT TO HEAL PROPERLY. YOU MAY WEAN TO A CANE TOLERATED. * MOST PATIENTS WILL HAVE HOME NURSING FOR THERAPY. IF YOU DECIDE TO DO OUTPATIENT PHYSICAL THERAPY, PLEASE SCHEDULE THIS 3 TIMES PER WEEK. * DAILY DRESSING CHANGES WITH 4X4 GAUZE OR ABD'S. CALL IF THERE IS INCREASED DRAINAGE,REDNESS FROM THE WOUND. . FOLLOW UP VISIT: If appointment is not already scheduled: Please call [facility] to make a follow-up appointment for 2 weeks after your surgery at . Prescriptions: New oxycodone 5 mg Tablet 5 - 10 mg PO Q6H PRN (Reason: pain) Qty: 30 RF: 0 fluconazole 100 mg Tablet 100 mg PO DAILY Qty: 30 RF: 0 Eliquis 2.5 mg Tablet 2.5 mg PO BID 30 Days Qty: 60 RF: 0 acetaminophen [Pain Reliever] 500 mg Tablet 1,000 mg PO Q8 14 Days Qty: 84 RF: 0 multivitamin [Daily-Rizwana] Tablet 1 tab PO QAM 30 Days Qty: 30 RF: 0 daptomycin 350 mg recon soln 360 mg IV DAILY 28 Days Qty: 10 RF: 0 hydrocortisone [Cortef] 10 mg tablet 30 mg PO BID Qty: 1 RF: 0 Continued furosemide [Lasix] 40 mg Tablet 40 mg PO QAM RF: 0 sennosides [senna] 8.6 mg Tablet 2 tab PO HS RF: 0 ondansetron HCl [Zofran] 8 mg Tablet 8 mg PO TID PRN (Reason: Nausea) RF: 0 potassium chloride [Klor-Con 10] 10 mEq Tablet Extended Release 10 meq PO QAM RF: 0 carvedilol 3.125 mg Tablet 3.125 mg PO BID RF: 0 calcium carbonate 600 mg calcium (1,500 mg) Tablet 600 mg PO QAM RF: 0 magnesium hydroxide [Milk of Magnesia] 400 mg/5 mL Suspension 30 ml PO UD PRN (Reason: Constipation) RF: 0 ascorbic acid (vitamin C) [Vitamin C] 500 mg Tablet 500 mg PO BID RF: 0 bisacodyl [Dulcolax (bisacodyl)] 10 mg Suppository 10 mg WI Q3D PRN (Reason: Constipation) RF: 0 ranitidine HCl 150 mg Tablet 150 mg PO BID RF: 0 clotrimazole-betamethasone 1-0.05 % Cream 1 applic TOPICAL BID PRN (Reason: AFFECTED AREAS) RF: 0 clotrimazole-betamethasone [Lotrisone] 1-0.05 % Cream 1 applic TOPICAL BID PRN (Reason: .) RF: 0 Enema 19-7 gram/118 mL Enema 197 ml WI Q3D PRN (Reason: Constipation) RF: 0 cholecalciferol (vitamin D3) [Vitamin D3] 1,000 unit Tablet 1,000 unit PO QAM RF: 0 ferrous gluconate 324 mg (37.5 mg iron) Tablet 324 mg PO BID RF: 0 Probiotic 3 billion cell Capsule 1 cap PO QPM RF: 0 levothyroxine 75 mcg Tablet 75 mcg PO QPM RF: 0 Discontinued pravastatin 40 mg Tablet 40 mg PO HS RF: 0 acetaminophen 500 mg Tablet 2 tab PO Q6H PRN (Reason: Pain) RF: 0 hydrocortisone 20 mg Tablet 1.5 tab PO BID RF: 0 docusate sodium 100 mg Tablet 100 mg PO TID RF: 0 oxycodone 10 mg Tablet 10 mg PO Q4H PRN (Reason: Pain) RF: 0 Eliquis 5 mg Tablet 5 mg PO BID RF: 0 oxycodone [OxyContin] 20 mg Tablet,Oral Only,Ext.Rel.12 Hr 20 mg PO Q12H RF: 0 clopidogrel [Plavix] 75 mg Tablet 75 mg PO QAM RF: 0 Stand-Alone Forms: [facility] Discharge Orders: Discharge Order (Routine); Ordered 08/22/18 Ordered By: Adolfo Rhodes Skilled Items Patient informed of condition?: Yes DNR: No Discharge Level of Care: Skilled Communicable Disease: No Discharge Prognosis: Improving Admission Data Admit Date/Time: 08/15/18 16:58 Attending Provider: Marcus Ferrera Admit Provider: Marcus Ferrera Primary Care Provider: Adam Cho Other Providers: Gudelia Berman ; Prasanna Damon Service: Surgical Services Other Interventions: Discharge Summary Assessment (RN) Last Done: 08/22/18 11:04 Pending Studies at Discharge: Yes Studies:: Blood cultures 08/19/18: negative to date. DC Date/Time DO NOT enter until pt leaves facility: 08/22/18 19:04
== END 2018-08-22 19:04 | DRG 466 ==
LOC: ASU 09:08 → 3E 16:58
DX: B95.7 Other staphylococcus as the cause of diseases classified elsewhere; Z79.891 Long term (current) use of opiate analgesic; N17.0 Acute kidney failure with tubular necrosis; E78.5 Hyperlipidemia, unspecified; E27.1 Primary adrenocortical insufficiency; Z87.440 Personal history of urinary (tract) infections; Z86.19 Personal history of other infectious and parasitic diseases; E66.9 Obesity, unspecified; E03.9 Hypothyroidism, unspecified; E83.51 Hypocalcemia; Z96.641 Presence of right artificial hip joint; I12.9 Hypertensive chronic kidney disease with stage 1 through stage 4 chronic kidney disease, or unspecified chronic kidney disease; Z79.01 Long term (current) use of anticoagulants; I73.9 Peripheral vascular disease, unspecified; Z88.0 Allergy status to penicillin; Z68.32 Body mass index [BMI] 32.0-32.9, adult; Z86.718 Personal history of other venous thrombosis and embolism; N18.3 Chronic kidney disease, stage 3 (moderate); Z79.52 Long term (current) use of systemic steroids; Z47.32 Aftercare following explantation of hip joint prosthesis; Z79.899 Other long term (current) drug therapy; Z79.02 Long term (current) use of antithrombotics/antiplatelets; B37.89 Other sites of candidiasis; M16.11 Unilateral primary osteoarthritis, right hip; D62 Acute posthemorrhagic anemia